=== PATIENT | male | born 1950 | race Caucasian/White ===

== ENCOUNTER → 2021-10-29 | Outpatient (CLI) | payer MEDICARE, SELFPAY ==
--- NOTE | 2021-10-29 | LES_PTH ---
PATIENT: MOHSEN OWEN LOC: [facility] U#:[id number] AGE/SX: 71/M ROOM: RE10/29/[address]: Dr. 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 AM:marcella 10/31/2021 MICROSCOPIC DESCRIPTION Slides are reviewed. GROSS DESCRIPTION Received in fixative is one container labeled with the patient's name and designated right upper eyelid. The specimen consists of multiple irregular fragments of light fleming tissue that in aggregate measure 1 x 0.5 x 0.2 cm. The specimen is totally submitted in one cassette. / AM:marcella 10/30/2021 TC:5 CPT: 06947
== END | disposition home or self-care (01) ==
LOC: LABSPEC 15:14
PROVIDERS: Visit Provider Ophthalmology
DX: L57.0 Actinic keratosis (principal)
CPT/HCPCS: 88305

== ENCOUNTER 2023-03-26 11:58 | Observation (INO) | payer MEDICARE, SELFPAY ==
[2023-03-26 12:00] VITALS: TEMP 37.1; BMI 32.7
--- NOTE | 2023-03-26 12:28 | EDS_ITS ---
HPI History of Present Illness HPI Narrative: Patient presents with right hip pain that began today. Patient fell out of bed and was unable to get up after the fall. Patient states he had the right total hip replacement 1 year ago. Patient states his pain is localized to his right hip. Patient states it is worse with movement. Patient describes it as aching. Patient denies any paresthesias or weakness. Patient denies any head injury or loss of consciousness. Patient denies any other injuries. Chief Complaint: Other, Pain/Inj Informant: patient Occured/Mechanism Mechanism/Context: Yes fall Onset/Context/Timing Onset: Today Context: Sudden Onset Timing: Continuous Quality of Pain: Aching Location: Right hip Worsened by: Movement Relieved by: Nothing Associated Symptoms Associated Symptoms: Negative for Parasthesia, Weakness or Loss of Funtion [facility] Medical History (Updated 03/26/23 @ 16:[address] Pradeep Pino DO) Colon cancer COPD (chronic obstructive pulmonary disease) Home Medications acyclovir 400 mg tablet 400 mg PO BID 03/26/23 [History Last Taken 03/25/23] budesonide-formoterol HFA 160 mcg-4.5 mcg/actuation aerosol inhaler (Symbicort) 1 inh inhalation Q12H 03/26/23 [History Last Taken 03/25/23] dexamethasone 4 mg tablet 40 mg PO .COMPLEX 03/26/23 [History Last Taken 03/22/23] lenalidomide 25 mg capsule 25 mg PO DAILY 03/26/23 [History Last Taken 03/25/23] ondansetron HCl 8 mg tablet 8 mg PO Q8H 03/26/23 [History Last Taken 03/25/23] Allergy/AdvReac Type Severity Reaction Status Date / Time No Known Allergies Allergy Verified 03/26/23 12:03 Surgical History (Updated 03/26/23 @ 13:[address] Pradeep Pino DO) History of colon resection History of total replacement of right hip Social History Smoking Status: Former smoker ROS ROS ED Constitutional Constitutional ED: Denies chills or fever(s) Eyes Eyes: Denies blurry vision or change in vision ENT ENT ED: Denies rhinorrhea or sore throat Cardiovascular Cardiovascular: Denies chest pain or palpitations Respiratory/Chest Respiratory/Chest: Denies cough or dyspnea Gastrointestinal Gastrointestinal: Denies nausea or vomiting Genitourinary Genitourinary ED: Denies dysuria or hematuria Musculoskeletal Musculoskeletal: Denies back pain or neck pain Integumentary Denies abscess or rash Neurologic Neurologic: Denies headache(s) or weakness Allergic/Immunologic Allergic/Immunologic ED: Denies mouth swelling or urticaria EXAM Physical Exam Const Vital Signs: 03/26/23 12:00 03/26/23 13:59 Temperature 98.7 F Temperature Source Oral Pulse Rate 88 Respiratory Rate 16 Blood Pressure 118/78 Blood Pressure Mean 91 Pulse Ox 98 Oxygen Delivery Method Room Air Positive well nourished and well developed General Appearance ED: well developed and NAD HEENT Reports moist mucous membranes Neck full ROM and supple Extremity Extremity Narrative: There is tenderness to palpation over the anterior and lateral aspects of the right hip. There is no bony crepitance or step-off. There is no obvious deformity noted. Range of motion was limited in all motions of the right hip secondary to pain. Sensation was intact to light touch in the lower extremities bilaterally. Pedal pulses were equal bilaterally. Strength is 5/5 bilaterally in the lower extremities. Neuro oriented x3, CN's II-XII intact bilaterally, moves all extremities and no sensory deficits noted Sensorium / Orientation: alert Motor Exam: strength 5/5 throughout Psych mental status grossly normal MDM MDM MDM Narrative Medical decision making narrative: Differential diagnosis includes hip dislocation, periprosthetic fracture, pelvic fracture, contusion, and closed head injury. X-rays of the right hip will be obtained to assess for fracture and dislocation. Radiography Diagnostic Testing: Clinical Impression(s) from Imaging Studies Hip/Pelvis X-Ray 03/26/23 13:04 IMPRESSION: Right hip arthroplasty, with no periprosthetic fracture. Electronically Signed: Vj Williamson MD at 13:27 EDT , Lower Extremity CT 03/26/23 14:21 IMPRESSION: Right hip arthroplasty, with no periprosthetic fracture. Nonspecific subchondral lucency/cyst formation at the anterior-superior aspect of the right acetabulum. Degenerative disc disease at L5-S1. Electronically Signed: Vj Williamson MD at 14:59 EDT , X-rays of the right hip were obtained. There are 3 views. On my independent interpretation, there is no acute fracture or dislocation noted. Radiologist also interpreted the x-rays and agrees. CT scan of the right hip was obtained. There is no periprosthetic fracture. There is no dislocation noted. This was interpreted by the radiologist and was also independently reviewed by myself. Treatment and Re-Evaluation Narrative: Patient was given injection of morphine here. Patient was advised of his findings. Patient was unable to ambulate after x-rays because of this, CT scan of the right hip was obtained. Patient was advised that the CT scan does not show any fracture. Patient was still unable to ambulate. Because of this, I will discuss the case with the hospitalist for admission and physical therapy. Patient understands and is agreeable with the plan. All questions were answered. Discharge Plan Triage Chief Complaint: Other, Pain/Inj ED Provider: Pradeep Pino Dx/Rx/DC Orders Clinical Impression: Inability to ambulate due to right hip, Acute pain of right hip Prescriptions: No Action acyclovir 400 mg tablet 400 mg PO BID budesonide-formoterol [Symbicort] 160-4.5 mcg/actuation HFA aerosol inhaler 1 inh INHALATION Q12H dexamethasone 4 mg tablet 40 mg PO .COMPLEX Rx Instructions: 40 mg orally ON DAY OF CHEMO; lenalidomide 25 mg capsule 25 mg PO DAILY ondansetron HCl 8 mg tablet 8 mg PO Q8H Primary Care Provider: GARRY MONTIEL Referrals: GARRY MONTIEL [Other] Disposition Disposition: Acute Care Hospital [facility]
[2023-03-26] MEDS: Morphine 4 MG/ML Syringe IM (12:53)
--- NOTE | 2023-03-26 13:04 | RAD_ITS ---
STUDY: X-RAY - PELVIS AND RIGHT HIP REASON FOR EXAM: Male, 72 years old. Injury/Pain. TECHNIQUE: 3 views of the pelvis and right hip. COMPARISON: None. FINDINGS: There is a non-specific bowel gas pattern. Normal visualized soft tissue structures. There are multiple calcified phleboliths. There are multiple fixation tacks in the lower abdominal wall. Normal bilateral iliac wings, sacroiliac joints and visualized sacrum. Normal bilateral superior and inferior pubic rami. Normal pubic symphysis. Normal bilateral ischial tuberosities. There is a right hip arthroplasty, with no periprosthetic fracture. RAD/HIP, UNI W/ Pelvis 2-3 Views IMPRESSION: Right hip arthroplasty, with no periprosthetic fracture. Electronically Signed: Vj Williamson MD at 13:27 EDT ,
[2023-03-26 13:59] VITALS: BP 118/78; PULSE 88; RESP 16; O2SAT 98
--- NOTE | 2023-03-26 14:21 | CT_ITS ---
STUDY: CT RIGHT HIP REASON FOR EXAM: Male, 72 years old. Right hip pain. CONTRAST: None. TECHNIQUE: Transaxial imaging of the right hip was performed with reformatted sagittal and coronal images. Individualized dose optimization techniques were used for this CT. COMPARISON: Right hip radiographs dated 03/26/2023. FINDINGS: HIP There is a right hip arthroplasty in place with single acetabular fixation screw. There is no lucency surrounding the acetabular screw. There is no periprosthetic fracture. There is nonspecific subchondral lucency/cyst formation at the anterior-superior aspect of the right acetabulum. VISUALIZED OSSEOUS PELVIS Normal right superior and inferior pubic rami. Normal pubic symphysis. Normal right ischial tuberosity. Normal visualized right iliac wing, sacroiliac joint, and sacral ala. There is degenerative disc disease at L5-S1. Normal visualized soft tissue structures of the pelvis. CT/Extremity Lower without Contra IMPRESSION: Right hip arthroplasty, with no periprosthetic fracture. Nonspecific subchondral lucency/cyst formation at the anterior-superior aspect of the right acetabulum. Degenerative disc disease at L5-S1. Electronically Signed: Vj Williamson MD at 14:59 EDT ,
--- NOTE | 2023-03-26 14:23 | ED.RN ---
Patient unable to move right leg or sit up. EMD aware
--- NOTE | 2023-03-26 14:26 | ED.RN ---
Patient refusing to have IV placed.
--- NOTE | 2023-03-26 16:38 | ED.RN ---
THIS RN ATTEMPTED TO AMBULATE PATIENT SO THAT HE COULD GO HOME. PT. WAS UNSUCCESSFULL AND NOT EVEN ABLE TO SIT HIMSELF UP IN BED WITH ASSISTANCE D/T WEAKNESS.
[2023-03-26 16:45] LABS: Absolute Lymphocyte Count 0.48 X10^3/uL (0.83-4.51); Absolute Neutrophil Count 3.3 X10^3/uL (2.0-7.7); Basophil# 0.01 X10^3/uL; Basophil% 0.2 % (0-1); Hematocrit 36.8 % (40-54); Hemoglobin 12.3 g/dL (13.0-16.5); Lymphocyte # 0.48 X10^3/ul (0.83-4.51); Lymphocyte % 11.2 % (19-41); Mean Corp Hgb Conc 33.4 g/dL (32-36); Mean Corpuscular Hgb 33.8 pg (27.0-32.0); Mean Corpuscular Volume 101.1 fL (80-94); Monocyte# 0.44 X10^3/uL; Monocyte% 10.2 % (0-10); NRBC Flagged by Analyzer 0 % (0-5); Neutrophil # 3.34 X10^3/uL (2.7-7.7); Neutrophil % 77.7 % (47-70); POSITIVE COUNT YES; POSITIVE DIFFERENTIAL YES; Platelet Count 78 K/mm3 (150-450); RBC Distribution Width SD 51.7 fl (35.1-43.9); Red Blood Count 3.64 M/mm3 (4.6-6.2); White Blood Count 4.3 K/mm3 (4.4-11.0)
[2023-03-26 16:49] LABS: Differential Indicated SCAN CRITERIA MET
[2023-03-26 17:00] LABS: Anion Gap 2 (5-15); BUN 19 mg/dL (7-18); BUN/Creat Ratio 21.2 RATIO (10-20); Calcium,Total 7.9 mg/dL (8.5-10.1); Chloride 107 mmol/L (98-107); EST Glomerular Filtration Rate 88 mL/min (>60); Est Glom Filt Rate - Afr Amer 107 mL/min (>60); Estimated Creatinine Clearance 68.34 ml/min; Glucose 84 mg/dL (74-106); Potassium 3.8 mmol/L (3.5-5.1); Sodium Level 136 mmol/L (136-145)
[2023-03-26 17:26] LABS: Differential Comment SCANNED
[2023-03-26 17:46] LABS: CPK Total, Creatine Kinase 2541 U/L (39-308)
--- NOTE | 2023-03-26 18:07 | PCM.HP.STD ---
HPI - General General Date of Admission: 03/26/23 Date of Service: 03/26/23 Chief Complaint: Right hip pain HPI Narrative MOHSEN OWEN, is a 72 M who presented to [facility] on 03/26/2023 complaining of right hip pain and inability ambulate. The patient was found on the ground today after lying on the ground for what is suspected to be about 9 hours. Patient was unclear how he got there but complained of right hip pain so he was brought to the emergency department. He was unable to ambulate. He was recently diagnosed with multiple myeloma and had his first chemotherapy with Dr. Roberts recently. He denies any other complaints and indicates his pain is predominantly in the anterior portion of his right leg and wraps around laterally. Pain is not reproducible with palpation. His daughter at the bedside also reports that his response time is a little bit slowed compared to baseline. He had morphine so not clear if it is related to this or if something else organic is going on. Patient does not remember how he got onto the ground. Vital signs on presentation showed temperature of 98.7, heart rate 88, blood pressure 118/78, respiratory was 16 oxygen saturations were 98% room air. His CBC shows a pancytopenia which is anticipated based on his myeloma diagnosis and chemotherapy. His chemistry panel is unremarkable other than a slightly elevated BUN at 19. His serum creatinine 0.9. His CK is 2541. Imaging of the hip was performed and he has a noted right hip arthroplasty with no periprosthetic fracture on plain films and a CT was done given the amount of pain he was having with weightbearing and this demonstrated right hip arthroplasty with no periprosthetic fracture nonspecific subchondral lucency and cyst formation along the anterior aspect of the right acetabulum as well as degenerative disc disease at L5-S1. [facility], [facility] Medical History (Updated 03/26/23 @ 18:[address] Sue Williamson DO) Colon cancer COPD (chronic obstructive pulmonary disease) History of tobacco abuse Multiple myeloma Home Medications acyclovir 400 mg tablet 400 mg PO BID 03/26/23 [History Last Taken 03/25/23] budesonide-formoterol HFA 160 mcg-4.5 mcg/actuation aerosol inhaler (Symbicort) 1 inh inhalation Q12H 03/26/23 [History Last Taken 03/25/23] dexamethasone 4 mg tablet 40 mg PO .COMPLEX 03/26/23 [History Last Taken 03/22/23] lenalidomide 25 mg capsule 25 mg PO DAILY 03/26/23 [History Last Taken 03/25/23] ondansetron HCl 8 mg tablet 8 mg PO Q8H 03/26/23 [History Last Taken 03/25/23] Allergy/AdvReac Type Severity Reaction Status Date / Time No Known Allergies Allergy Verified 03/26/23 12:03 other (Patient unsure) Surgical History History of colon resection History of total replacement of right hip Social History (Updated 03/26/23 @ 18:[address] Sue Williamson DO) Smoking Status: Former smoker alcohol intake: current alcohol intake frequency: holidays/special occasions only substance use type: does not use ROS Constitutional Constitutional: Denies anorexia, change in weight, chills, fatigue, fever(s), malaise, night sweats, weakness or other Eyes Eyes: Denies blurry vision, change in eye color, change in vision, discharge from eye(s), double vision, erythema, eye pain, loss of vision or other ENT HEENT: Denies abnormal hearing, dysphagia, ear pain, epistaxis, headache(s), hearing loss, nasal congestion, nasal discharge, post nasal drip, sinus pressure, sore throat or other Cardiovascular Cardiovascular: Denies chest pain, claudication, dyspnea on exertion, edema, lightheadedness, orthopnea, palpitations, paroxysmal nocturnal dyspnea, rapid heart rate, syncope or other Respiratory/Chest Respiratory/Chest: Denies cough, dyspnea, excessive phlegm production, hemoptysis, productive cough, shortness of breath at rest, shortness of breath with exertion, wheezing or other Gastrointestinal Gastrointestinal: Denies abdominal pain, coffee ground emesis, constipation, diarrhea, dyspepsia, hematemesis, hematochezia, loose stools, melena, nausea, vomiting or other Genitourinary Genitourinary: Denies burning urination, difficulty urinating, dysuria, hematuria, nocturia, urinary frequency, urinary hesitancy, urinary incontinence, urinary urgency or other Musculoskeletal Musculoskeletal: Reports joint pain and other Details: Inability to bear weight right lower extremity ; Denies arthralgias, back pain, joint stiffness, joint swelling, myalgias or neck pain Neurologic Neurologic: Reports abnormal gait; Denies abnormal speech, confusion, disequilibrium, dizziness, focal weakness, headache(s), numbness, paresthesias, seizure-like activity, seizures, syncope, tingling, tremor(s) or other Psychiatric Psychiatric: Denies anxiety, depression, homicidal ideation, suicidal ideation or other Endocrine Endocrinology: Denies change in body appearance, cold intolerance, excessive sweating, heat intolerance, polydipsia, polyuria or other Hematologic/Lymphatic Hematologic/Lymphatic: Denies anemia, easy bleeding, easy bruising, lymphadenopathy or other Allergic/Immunologic Allergic/Immunologic: Denies rhinitis, hives, eczemia, asthma or other Vital Signs Vital Signs Vital Signs: 03/26/23 12:00 03/26/23 13:59 Temperature 98.7 F Temperature Source Oral Pulse Rate 88 Respiratory Rate 16 Blood Pressure 118/78 Blood Pressure Mean 91 Pulse Ox 98 Oxygen Delivery Method Room Air Weight Weight: 94.801 kg Body Mass Index (BMI) 32.7 Results Lab / Micro Data 03/26/23 16:34 03/26/23 16:34 Labs: Laboratory Results - last 24 hr 03/26/23 16:34: WBC 4.3 L, RBC 3.64 L, Hgb 12.3 L, Hct 36.8 L, MCV 101.1 H, MCH 33.8 H, MCHC 33.4, RDW Std Deviation 51.7 H, RDW Coeff of Chetan 14.0, Plt Count 78 L, MPV 12.0, Immature Gran % (Auto) 0.700, Neut % (Auto) 77.7 H, Lymph % (Auto) 11.2 L, [place] % (Auto) 10.2 H, Eos % (Auto) 0.0, Baso % (Auto) 0.2, Absolute Neuts (auto) 3.3, Absolute Lymphs (auto) 0.48 L, Nucleated RBC % 0, Differential Comment SCANNED, Diff Path Review September, Sodium 136, Potassium 3.8, Chloride 107, Carbon Dioxide 27.0, Anion Gap 2 L, BUN 19 H, Creatinine 0.90, Estim Creat Clear Calc 68.34, Est GFR (MDRD) Af Amer 107, Est GFR (MDRD) Non-Af 88, BUN/Creatinine Ratio 21.2 H, Glucose 84, Calcium 7.9 L, Total Creatine Kinase 2541 H Radiology Impression Hip/Pelvis X-Ray 03/26/23 13:04 IMPRESSION: Right hip arthroplasty, with no periprosthetic fracture. Electronically Signed: Vj Williamson MD at 13:27 EDT , Lower Extremity CT 03/26/23 14:21 IMPRESSION: Right hip arthroplasty, with no periprosthetic fracture. Nonspecific subchondral lucency/cyst formation at the anterior-superior aspect of the right acetabulum. Degenerative disc disease at L5-S1. Electronically Signed: Vj Williamson MD at 14:59 EDT , Assessment & Plan Assessment/Plan (1) Acute pain of right hip: (2) Inability to ambulate due to right hip: (3) Rhabdomyolysis: (4) Confusion: PLAN: Plan Acute right hip pain with inability ambulate -Imaging is unremarkable -If pain persists would recommend repeat imaging of CT pelvis and right hip region at 24 to 48 hours to rule out occult fracture -PT/OT with weightbearing as tolerated -Scheduled Tylenol -As needed oxycodone -We will place on bowel regimen to avoid constipation associate with narcotics Mild rhabdomyolysis -CK on admission was about 2500 -We will hydrate with IV fluids with LR at about 100 cc/h with a repeat CK in a.m. -No current renal dysfunction Mild confusion -Patient is alert and oriented x3 however response times are slow -Family states this is atypical for him -Check CT of the brain -May be related to medications for pain given in the emergency department Pancytopenia -Related to chemotherapy and underlying disease process -Monitor counts COPD -Continue home inhalers -As needed albuterol Multiple myeloma -Continue home medications -Continue outpatient follow-up -sees Dr. Roberts Debility -PT/OT consultation History of tobacco abuse -Remote Obesity -BMI 32.7 -Complicates treatment, prognosis, outcomes -Recommend weight loss DVT prophylaxis -Subcu Lovenox CODE STATUS -Full code as verified on admission Charges/Coding Visit Charges Inpatient E&M: 65199 Init Hosp L2
--- NOTE | 2023-03-26 18:09 | CT_ITS ---
STUDY: CT BRAIN WITHOUT CONTRAST REASON FOR EXAM: Male, 72 years old. confusion RADIATION DOSAGE (If Supplied By Facility): CTDIvol = ( 44.99 ) mGy, DLP = ( 846.73 ) mGycm TECHNIQUE: Transaxial CT imaging of the brain was performed without administration of intravenous contrast material. Individualized dose optimization techniques were used for this CT. COMPARISON: No relevant priors. FINDINGS: Normal soft tissue structures. Normal calvarium. There is severe cerebral atrophy with widening of the extra-axial spaces and ventricular dilatation. There are areas of decreased attenuation within the white matter tracts of the supratentorial brain, consistent with microvascular disease changes. Normal basal ganglia and thalami. Normal brainstem. Normal cerebellum. There is no intracranial hemorrhage. There are no findings of an acute ischemic infarction. Normal visualized paranasal sinuses. CT/Brain/Head without Contrast IMPRESSION: Chronic involutional changes of the brain. Electronically Signed: Brien Harley MD at 18:50 EDT ,
[2023-03-26 18:36] VITALS: BP 118/78; PULSE 88; RESP 16; TEMP 37.1; O2SAT 98
[2023-03-26 18:54] VITALS: BMI 32.8
[2023-03-26 18:58] VITALS: BP 121/68; PULSE 90; RESP 18; TEMP 37.9; O2SAT 96
[2023-03-26] MEDS: Lactated Ringers 1,000 ML 100 ML IV (20:21)
[2023-03-26] MEDS: Acetaminophen 500 MG Tablet 1000 MG PO (20:23)
[2023-03-26] MEDS: Albuterol 2.5 MG/3 ML VIAL.NEB. INHALATION (20:40)
[2023-03-26 20:41] VITALS: PULSE 87; RESP 16
[2023-03-26] MEDS: Budesonide Respules 0.5 MG/2 ML AMPUL.NEB. INHALATION (20:41)
[2023-03-26] MEDS: Acyclovir 200 MG Capsule 400 MG PO (22:41)
[2023-03-26 22:43] VITALS: BP 132/67; PULSE 90; RESP 18; TEMP 36.8; O2SAT 98
[2023-03-27 03:45] VITALS: BP 118/67; PULSE 83; RESP 18; TEMP 36.6; O2SAT 98
[2023-03-27 04:38] VITALS: BMI 11.3
[2023-03-27] MEDS: Lactated Ringers 1,000 ML 100 ML IV (05:23)
[2023-03-27] MEDS: Acetaminophen 500 MG Tablet 1000 MG PO (05:23)
--- NOTE | 2023-03-27 07:40 | PN.HOSP_ITS ---
Reason for Visit Reason for Visit: Diagnoses Pain in right hip (03/26/23) Rhabdomyolysis (03/26/23) Difficulty in walking, not elsewhere classified (03/26/23) Disorientation, unspecified (03/26/23) Subjective Subjective States that he did not fall, but rather rolled out of bed. Evaded questioning about length of time he was on the floor. 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 Objective Data Objective Data Vital Signs: Vital Signs Temp Pulse Resp BP Pulse Ox O2 Del Method O2 Flow Rate 36.6 C 83 18 118/67 98 Nasal Cannula 2 03/27/23 03:45 03/27/23 03:45 03/27/23 03:45 03/27/23 03:45 03/27/23 03:45 03/27/23 03:45 03/27/23 03:45 Oxygen Flow Rate (L/min) 2 Oxygen Delivery Method Nasal Cannula Weight: 32.8 kg Body Mass Index (BMI) 11.3 Intake & Output: Intake and Output for Last 24 Hours 03/25/23 03/26/23 03/27/23 23:59 23:59 23:59 Intake Total 903.33 / 903.33 Output Total 600 / 600 Balance 303.33 / 303.33 Lab / Micro Data 03/27/23 08:08 03/27/23 08:08 Labs: Laboratory Results - last 24 hr 03/26/23 16:34: WBC 4.3 L, RBC 3.64 L, Hgb 12.3 L, Hct 36.8 L, MCV 101.1 H, MCH 33.8 H, MCHC 33.4, RDW Std Deviation 51.7 H, RDW Coeff of Chetan 14.0, Plt Count 78 L, MPV 12.0, Immature Gran % (Auto) 0.700, Neut % (Auto) 77.7 H, Lymph % (Auto) 11.2 L, [place] % (Auto) 10.2 H, Eos % (Auto) 0.0, Baso % (Auto) 0.2, Absolute Neuts (auto) 3.3, Absolute Lymphs (auto) 0.48 L, Nucleated RBC % 0, Differential Comment SCANNED, Diff Path Review September, Sodium 136, Potassium 3.8, Chloride 107, Carbon Dioxide 27.0, Anion Gap 2 L, BUN 19 H, Creatinine 0.90, Estim Creat Clear Calc 68.34, Est GFR (MDRD) Af Amer 107, Est GFR (MDRD) Non-Af 88, BUN/Creatinine Ratio 21.2 H, Glucose 84, Calcium 7.9 L, Total Creatine Kinase 2541 H Radiography Diagnostic Testing: Radiology Impression Hip/Pelvis X-Ray 03/26/23 13:04 IMPRESSION: Right hip arthroplasty, with no periprosthetic fracture. Electronically Signed: Vj Williamson MD at 13:27 EDT , Lower Extremity CT 03/26/23 14:21 IMPRESSION: Right hip arthroplasty, with no periprosthetic fracture. Nonspecific subchondral lucency/cyst formation at the anterior-superior aspect of the right acetabulum. Degenerative disc disease at L5-S1. Electronically Signed: Vj Williamson MD at 14:59 EDT , Brain CT 03/26/23 18:09 IMPRESSION: Chronic involutional changes of the brain. Electronically Signed: Brien Harley MD at 18:50 EDT , Physical Exam Const alert, oriented x3 and no apparent distress HEENT head/scalp atraumatic and moist oral mucous membranes Resp normal respiratory effort, no retractions, no use of accessory muscles and clear to auscultation bilaterally Cardio regular rate, regular rhythm, S1 normal heart sound and S2 normal heart sound GI normal to inspection, nondistended, normoactive bowel sounds, soft to palpation, non-tender and non-distended Neuro Sensorium / Orientation: awake and alert Assessment & Plan Assessment/Plan (1) Acute pain of right hip: PLAN: CT showed right hip arthroplasty w no periprosthetic fracture. Found down after 9 hours. (2) Inability to ambulate due to right hip: PLAN: PT OT Pt insisting on going home. He expresses understanding of risk of going home, including further falls. Myself and nursing separately discouraged him going ho me given his debility. Encourage oupt physical therapy. (3) Rhabdomyolysis: PLAN: 2/2 to being down for 9 hours. CPK 2541 on admission. Trending down to 1130. (4) Confusion: PLAN: Resolved. Reportedly pt is normally A+O x3, but noted to be slow in response at baseline Despite profound atrophy on CT, pt is A+Ox3 and understands risks of going home. Recommend follow up with neurology as outpt. PLAN: Plan Chronic conditions: * Pancytopenia-Related to chemotherapy and underlying disease process-Monitor counts * COPD-Continue home inhalers-As needed albuterol * Multiple myeloma-Continue home medications-Continue outpatient [id number] Dr. Roberts * Obesity-BMI 32.7-Complicates treatment, prognosis, outcomes DVT prophylaxis-Subcu Lovenox CODE STATUS-Full code as verified on admission
[2023-03-27 09:03] LABS: Basophil# 0.01 X10^3/uL; Basophil% 0.4 % (0-1); Eosinophil# 0.02 X10^3/uL; Eosinophils% 0.7 % (0-5); Hematocrit 33.1 % (40-54); Hemoglobin 11.2 g/dL (13.0-16.5); Mean Corp Hgb Conc 33.8 g/dL (32-36); Mean Corpuscular Hgb 34.3 pg (27.0-32.0); Mean Corpuscular Volume 101.2 fL (80-94); Mean Platelet Vol. 12.4 fl (6.2-12.0); Monocyte# 0.21 X10^3/uL; Monocyte% 7.9 % (0-10); NRBC Flagged by Analyzer 0 % (0-5); Neutrophil # 2.02 X10^3/uL (2.7-7.7); Neutrophil % 75.6 % (47-70); POSITIVE COUNT YES; POSITIVE DIFFERENTIAL YES; Platelet Count 61 K/mm3 (150-450); RBC Distribution Width CV 13.8 % (11.6-14.6); Red Blood Count 3.27 M/mm3 (4.6-6.2); White Blood Count 2.7 K/mm3 (4.4-11.0)
[2023-03-27 09:24] LABS: ALB/GLOB Ratio 0.9 RATIO (0.9-2.4); AST(SGOT) 78 U/L (15-37); Alanine Aminotransfer ALT/SGPT 33 U/L (16-61); Albumin, Serum 2.3 g/dL (3.2-5.0); Alkaline Phosphatase 55 U/L (45-117); Anion Gap 5 (5-15); BUN 21 mg/dL (7-18); BUN/Creat Ratio 23.8 RATIO (10-20); CPK Total, Creatine Kinase 1130 U/L (39-308); Calcium,Total 7.4 mg/dL (8.5-10.1); Chloride 110 mmol/L (98-107); Creatinine, Serum 0.88 mg/dL (0.70-1.30); EST Glomerular Filtration Rate 90 mL/min (>60); Est Glom Filt Rate - Afr Amer 109 mL/min (>60); Estimated Creatinine Clearance 34.68 ml/min; Globulin 2.5 g/dL (2.2-4.2); Glucose 92 mg/dL (74-106); Magnesium 2.1 mg/dL (1.6-2.6); Phosphorus 3.8 mg/dL (2.5-4.9); Potassium 3.6 mmol/L (3.5-5.1); Protein, Total 4.8 g/dL (6.4-8.2); Sodium Level 141 mmol/L (136-145); Thyroid Stim Hormone (TSH) 2.05 uIU/mL (0.358-3.74)
[2023-03-27 09:50] VITALS: BP 109/61; PULSE 84; RESP 18; TEMP 36.6; O2SAT 94
[2023-03-27 09:53] LABS: Differential Indicated SCAN CRITERIA MET
[2023-03-27] MEDS: Acyclovir 200 MG Capsule 400 MG PO (09:53)
[2023-03-27 10:21] LABS: Differential Comment SCANNED; Platelet Estimate MKD DEC (ADEQ)
--- NOTE | 2023-03-27 10:28 | DS.PCM_ITS ---
Providers Date of Admission: 03/26/23 Primary Care Physician: GARRY MONTIEL Reason For Visit: INTRACTABLE HIP PAIN Diagnosis Discharge Diagnosis (1) Acute pain of right hip: Status: Acute Code(s): M25.551 - Pain in right hip Plan: CT showed right hip arthroplasty w no periprosthetic fracture. Found down after 9 hours. (2) Inability to ambulate due to right hip: Status: Acute Code(s): R26.2 - Difficulty in walking, not elsewhere classified Plan: PT OT Pt insisting on going home. He expresses understanding of risk of going home, including further falls. Myself and nursing separately discouraged him going home given his debility. Encourage oupt physical therapy. (3) Rhabdomyolysis: Status: Acute Code(s): M62.82 - Rhabdomyolysis Plan: 2/ to being down for 9 hours. CPK 2541 on admission. Trending down to 1130. (4) Confusion: Status: Acute Code(s): R41.0 - Disorientation, unspecified Plan: Resolved. Reportedly pt is normally A+O x3, but noted to be slow in response at baseline Despite profound atrophy on CT, pt is A+Ox3 and understands risks of going home. Recommend follow up with neurology as outpt. Plan Chronic conditions: * Pancytopenia-Related to chemotherapy and underlying disease process-Monitor counts * COPD-Continue home inhalers-As needed albuterol * Multiple myeloma-Continue home medications-Continue outpatient [id number] Dr. Roberts * Obesity-BMI 32.7-Complicates treatment, prognosis, outcomes DVT prophylaxis-Subcu Lovenox CODE STATUS-Full code as verified on admission Medications at Discharge Home Medications acyclovir 400 mg tablet 400 mg PO BID 03/26/23 budesonide-formoterol HFA 160 mcg-4.5 mcg/actuation aerosol inhaler (Symbicort) 1 inh inhalation Q12H 03/26/23 dexamethasone 4 mg tablet 40 mg PO .COMPLEX 03/26/23 lenalidomide 25 mg capsule 25 mg PO DAILY 03/26/23 ondansetron HCl 8 mg tablet 8 mg PO Q8H 03/26/23 Hospital Course Operations None Procedures None Summary of Care Provided Minutes Spent on Discharge: 35 Hospital Course: Patient was found down for upwards of 9 hours at home. Patient was evaluated noted to have some mild rhabdomyolysis with a CPK of 2541. Was complaining of some hip pain but CAT scan was negative. Patient apparently had some transient confusion and CAT scan showed marked atrophy but no other acute process. Today, the patient was evaluated and he is alert and oriented x3 but he denies the need for senior care facility insist on going home. He was expressed to himself as well as nursing separately that he should go somewhere for some additional rehab as he was unable to get himself off the floor after several hours. He denies any needs for that. Is going to him about the risks and he is excepting. He does seem rather dismissive of the input from the medical staff including the physician as well as nursing. Patient insist on going home. His rhabdomyolysis is improving that is likely due to the profound length of time that he was on the floor. He does have marked atrophy as mentioned above but he is currently alert and oriented. Would recommend that he follow-up with neurology for further evaluation of this marked atrophy and evaluation for possible dementia or mild cognitive impairment. Weight / BMI Weight Weight: 32.8 kg Body Mass Index (BMI) 11.3 ABG / Lab / Microbiology Data 03/27/23 08:08 03/27/23 08:08 Laboratory: Laboratory Results - last 24 hr 03/26/23 16:34: WBC 4.3 L, RBC 3.64 L, Hgb 12.3 L, Hct 36.8 L, MCV 101.1 H, MCH 33.8 H, MCHC 33.4, RDW Std Deviation 51.7 H, RDW Coeff of Chetan 14.0, Plt Count 78 L, MPV 12.0, Immature Gran % (Auto) 0.700, Neut % (Auto) 77.7 H, Lymph % (Auto) 11.2 L, [place] % (Auto) 10.2 H, Eos % (Auto) 0.0, Baso % (Auto) 0.2, Absolute Neuts (auto) 3.3, Absolute Lymphs (auto) 0.48 L, Nucleated RBC % 0, Differential Comment SCANNED, Diff Path Review September, Sodium 136, Potassium 3.8, Chloride 107, Carbon Dioxide 27.0, Anion Gap 2 L, BUN 19 H, Creatinine 0.90, Estim Creat Clear Calc 68.34, Est GFR (MDRD) Af Amer 107, Est GFR (MDRD) Non-Af 88, BUN/Creatinine Ratio 21.2 H, Glucose 84, Calcium 7.9 L, Total Creatine Kinase 2541 H 03/27/23 08:08: WBC 2.7 L, RBC 3.27 L, Hgb 11.2 L, Hct 33.1 L, MCV 101.2 H, MCH 34.3 H, MCHC 33.8, RDW Std Deviation 51.0 H, RDW Coeff of Chetan 13.8, Plt Count 61 L, MPV 12.4 H, Immature Gran % (Auto) 0.400, Neut % (Auto) 75.6 H, Lymph % (Auto) 15.0 L, [place] % (Auto) 7.9, Eos % (Auto) 0.7, Baso % (Auto) 0.4, Absolute Neuts (auto) 2.0, Absolute Lymphs (auto) 0.40 L, Nucleated RBC % 0, Differential Comment SCANNED, Diff Path Review September, Platelet Estimate MKD DEC, Sodium 141, Potassium 3.6, Chloride 110 H, Carbon Dioxide 26.0, Anion Gap 5, BUN 21 H, Creatinine 0.88, Estim Creat Clear Calc 34.68, Est GFR (MDRD) Af Amer 109, Est GFR (MDRD) Non-Af 90, BUN/Creatinine Ratio 23.8 H, Glucose 92, Calcium 7.4 L, Phosphorus 3.8, Magnesium 2.1, Total Bilirubin 0.50, AST 78 H, ALT 33, Alkaline Phosphatase 55, Total Creatine Kinase 1130 H, Total Protein 4.8 L, Albumin 2.3 L , Globulin 2.5, Albumin/Globulin Ratio 0.9, TSH 2.05 Radiography Diagnostic Testing: Radiology Impression Hip/Pelvis X-Ray 03/26/23 13:04 IMPRESSION: Right hip arthroplasty, with no periprosthetic fracture. Electronically Signed: Vj Williamson MD at 13:27 EDT , Lower Extremity CT 03/26/23 14:21 IMPRESSION: Right hip arthroplasty, with no periprosthetic fracture. Nonspecific subchondral lucency/cyst formation at the anterior-superior aspect of the right acetabulum. Degenerative disc disease at L5-S1. Electronically Signed: Vj Williamson MD at 14:59 EDT , Brain CT 03/26/23 18:09 IMPRESSION: Chronic involutional changes of the brain. Electronically Signed: Brien Harley MD at 18:50 EDT , D/C Instructions Discharge Diet: No restrictions Meaningful Use Info Meaningful Use Diagnoses (Choose all that apply): None applicable Discharge Plan Admission Admit Date/Time: 03/26/23 18:16 Primary Reason for Your Visit: Found down Attending Provider: Pradeep Xavier Primary Care Provider: GARRY MONTIEL Consulting Providers: Sue Williamson Instructions Additional Instructions / Restrictions: You are found down on the floor after several hours. You had some muscle breakdown as evidenced on some your lab work but that is improved with IV fluids. CAT scan did not show any fracture in your hip. You are weak and is recommended to be evaluated to see about going somewhere for further rehab but you would rather go home. I would recommend that you do follow-up with physical therapy to help increase her strength. I do recommend that you follow-up with neurology as well as you do have very marked atrophy on your CAT scan of your br ain. I am not sure why that is but there is no evidence of any stroke at this time. If you do have further falls or unable to get yourself up., If you are able, contact 911 to come back into the emergency room. Discharge Orders/Prescriptions Prescriptions: Continued acyclovir 400 mg tablet 400 mg PO BID budesonide-formoterol [Symbicort] 160-4.5 mcg/actuation HFA aerosol inhaler 1 inh INHALATION Q12H dexamethasone 4 mg tablet 40 mg PO .COMPLEX Rx Instructions: 40 mg orally ON DAY OF CHEMO; lenalidomide 25 mg capsule 25 mg PO DAILY ondansetron HCl 8 mg tablet 8 mg PO Q8H Other Ambulatory Orders: Physical Therapy Evaluation (Routine) Location: None Selected Ordered By: Dr. Pradeep Xavier Referrals / Follow Up: GARRY MONTIEL [Other] GARRY MONTIEL [Other] - Within 1 Week Disposition Disposition (needs filled in before D/C Order can be placed): Home, Self Care Charges/Coding Visit Charges Inpatient E&M: 59305 Disch Hosp >30min
--- NOTE | 2023-03-27 12:33 | CASEMGMT ---
Addendum entered by Edwina Dangelo 03/27/23 13:02: Social Work SW did ask pt if he goes to the [facility], as pt had mentioned is on a limited budget. Pt states no, he does not want to go there due to who is in office, and does not want to have to wait. HALIE Salazar Original Note: Social Work SW met w/pt in room to discuss prior level of function and discharge plan. PCP: Brenton Montgomery Specialists: Dr. Roberts, oncology. Pt informed SW this is the second time he is going through cancer treatment. Insurance: [employer] Medicare Pharmacy: [facility] [place]: Pt has two sons, Rickie and Pradeep. Pt also has significant other Marcella Escalante LW/POA: Pt states son Rickie is POA, SW asked pt to bring in should he back in the hospital. Living arrangements/Prior level of function: Pt lives home in a one floor apartment. Pt lives alone, independent with ADLs. Pt drives, cleans, organizes his own medication, completes all ADLs. He cooks, or Marcella will bring over food for pt occasionally. DME: Pt has a cane and walker. We talked about a life alert button, he states his girlfriend is looking into this with his insurance. [facility]: Pt had home health care after hip surgery, but states did not have it very long SNF: Pt has not been to SNF Plan: Home. Therapy came in to see pt while SW in room, pt politely declined, stating he can manage and knows his limits. 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 SW did give pt a prescription for outpt PT from the physician, along with information for [facility]. Pt did tell SW he prefers [facility], SW did pt know that he can take the script to [facility] as well if he would prefer to get therapy there. Pt states understanding. Pt will return home at discharge, no further needs anticipated at this time. HALIE Salazar
[2023-03-30 10:12] LABS: Pathologist Review Reviewed
[2023-03-30 10:14] LABS: Pathologist Review Reviewed
== END 2023-03-27 16:40 | disposition home or self-care (01) ==
LOC: ED 16:36 → MS3 18:14
PROVIDERS: Admitting Provider Internal Medicine; Emergency Provider Emergency Medicine
DX: M25.551 Pain in right hip (principal); C90.00 Multiple myeloma not having achieved remission; D61.810 Antineoplastic chemotherapy induced pancytopenia; J44.9 Chronic obstructive pulmonary disease, unspecified; M62.82 Rhabdomyolysis; R26.2 Difficulty in walking, not elsewhere classified; R53.81 Other malaise; Z79.51 Long term (current) use of inhaled steroids; Z87.891 Personal history of nicotine dependence; R41.0 Disorientation, unspecified; M51.37 Other intervertebral disc degeneration, lumbosacral region; Z96.641 Presence of right artificial hip joint; Z79.899 Other long term (current) drug therapy; E66.9 Obesity, unspecified; Z68.32 Body mass index [BMI] 32.0-32.9, adult
CPT/HCPCS: 36415; 70450; 73502; 73700; 80048; 80053; 82550; 83735; 84100; 84443; 85025; 94640; 96360; 96361; 96372; 99221; 99285; J7120; G0378

== ENCOUNTER → 2024-03-28 | Outpatient (CLI) | payer MEDICARE, SELFPAY | END | disposition home or self-care (01) | LOC: LABSPEC 12:50 | PROVIDERS: Referring Provider Internal Medicine Hematology & Oncology; Visit Provider Internal Medicine Hematology & Oncology | DX: C90.00 Multiple myeloma not having achieved remission (principal) | CPT/HCPCS: 86850; 86900; 86901 ==

== ENCOUNTER 2024-06-09 19:17 | Inpatient (IN) | payer MEDICARE, SELFPAY ==
[2024-06-09] VITALS (15 sets, daily range): BP systolic 104–124; BP diastolic 52–81; PULSE 100–111; RESP 20–26; TEMP 34.8–36.9; O2SAT 91–98; BMI 36.4; BMI 34.9
--- NOTE | 2024-06-09 19:27 | EKG12_ITS ---
Test Reason : DYSRHYTHMIA Blood Pressure : */* mmHG Vent. Rate : 108 BPM Atrial Rate : 108 BPM P-R Int : 160 ms QRS Dur : 118 ms QT Int : 378 ms P-R-T Axes : 74 91 62 degrees QTcB Int : 506 ms Sinus tachycardia Right bundle branch block Abnormal ECG Confirmed by Alli Madison ([id number]), manager editorial MARBELLA RDZ ([id number]) on 06/12/2024 10:27:40 AM Referred By: Confirmed By: Alli Madison
--- NOTE | 2024-06-09 19:30 | EDS_ITS ---
HPI <SAHRA Gama - Last Filed: 06/09/24 21:02> History of Present Illness Chief Complaint: Weakness Narrative Narrative: 73-year-old male with past medical history of COPD, multiple myeloma on weekly chemotherapy shots presents with weakness for about a week. He states he has had a cough and tested positive for COVID-19. He states he has been too weak to get out of bed for multiple days. He cannot really give me a good timeline. His friend apparently called EMS and he was brought in for evaluation. He lives alone and states prior to this illness he is able to walk. He denies fall or injuries and again he was found in bed. He denies chest pain or shortness of breath. PFSH <SAHRA Gama - Last Filed: 06/09/24 21:02> PFS Medical History (Updated 06/09/24 @ 20:29 by Burke River MD) Rheumatoid arthritis Former smoker History of tobacco abuse Multiple myeloma Colon cancer COPD (chronic obstructive pulmonary disease) Home Medications ?Medication ?Instructions ?Recorded ?Last Taken ?Type acyclovir 400 mg tablet 400 mg PO BID 03/26/23 03/25/23 History budesonide-formoterol HFA 160 1 inh inhalation Q12H 03/26/23 03/25/23 History mcg-4.5 mcg/actuation aerosol inhaler (Symbicort) dexamethasone 4 mg tablet 40 mg PO .COMPLEX 03/26/23 03/22/23 History ondansetron HCl 8 mg tablet 8 mg PO Q8H 03/26/23 03/25/23 History lenalidomide 15 mg capsule 15 mg PO DAILY 06/09/24 Unknown History Allergy/AdvReac Type Severity Reaction Status Date / Time No Known Allergies Allergy Verified 06/09/24 19:18 Surgical History History of colon resection History of total replacement of right hip Social History (Updated 03/26/23 @ 18:[address] Sue Williamson DO) Smoking Status: Former smoker alcohol intake: current alcohol intake frequency: holidays/special occasions only substance use type: does not use ROS <SAHRA Gama - Last Filed: 06/09/24 21:02> ROS ED ROS Narrative Constitutional: Positive for chills, malaise. CVS: Negative for chest pain. Respiratory: Positive for cough. GI: Negative for abdominal pain, vomiting, diarrhea. EXAM <SAHRA Gama - Last Filed: 06/09/24 21:02> Physical Exam Narrative Exam Narrative: CONST: Patient appears disheveled lying on bed. He is covered in urine and stool on his legs. EYES: Normal inspection. ENT: Normal inspection, dry mucous membranes. NECK: Normal inspection. RESP: No respiratory distress, anterior laterally clear to auscultation. CVS: Regular rate and rhythm, no murmur, no gallop. ABD: Soft and nontender, no guarding or rebound, nondistended. SKIN: Red/purple skin over his lower and upper thighs from lying down and moisture. No open wounds. EXTREMITIES: Normal appearance, bilateral +1 ankle edema. NEURO: Alert and answering questions appropriately. PSYCH: Normal affect. Const Vital Signs: 06/09/24 19:18 06/09/24 19:22 06/09/24 19:44 Temperature 94.6 F L 94.6 F L Temperature Source Axillary Axillary Pulse Rate 105 H 105 H Respiratory Rate 25 H 25 H Respiratory Effort Respiratory Pattern Blood Pressure 105/62 105/62 Blood Pressure Mean 76 76 Pulse Ox 91 91 Oxygen Delivery Method Room Air Room Air Room Air 06/09/24 19:53 06/09/24 20:11 06/09/24 20:18 Temperature 98.5 F 98 F Temperature Source Rectal Core Pulse Rate 103 H Respiratory Rate 23 H Respiratory Effort Normal Respiratory Pattern Normal Blood Pressure 106/81 H Blood Pressure Mean 89 Pulse Ox 92 Oxygen Delivery Method Room Air 06/09/24 20:21 06/09/24 20:39 06/09/24 21:00 Temperature 98 F 98.2 F 98.4 F Temperature Source Core Core Pulse Rate 102 H 100 101 H Respiratory Rate 20 H 20 H 26 H Respiratory Effort Respiratory Pattern Blood Pressure 106/81 H 119/70 124/62 H Blood Pressure Mean 89 86 82 Pulse Ox 93 96 98 Oxygen Delivery Method Room Air Room Air <Burke River MD - Last Filed: 06/09/24 21:08> Physical Exam Const Vital Signs: 06/09/24 19:18 06/09/24 19:22 06/09/24 19:44 Temperature 94.6 F L 94.6 F L Temperature Source Axillary Axillary Pulse Rate 105 H 105 H Respiratory Rate 25 H 25 H Respiratory Effort Respiratory Pattern Blood Pressure 105/62 105/62 Blood Pressure Mean 76 76 Pulse Ox 91 91 Oxygen Delivery Method Room Air Room Air Room Air 06/09/24 19:53 06/09/24 20:11 06/09/24 20:18 Temperature 98.5 F 98 F Temperature Source Rectal Core Pulse Rate 103 H Respiratory Rate 23 H Respiratory Effort Normal Respiratory Pattern Normal Blood Pressure 106/81 H Blood Pressure Mean 89 Pulse Ox 92 Oxygen Delivery Method Room Air 06/09/24 20:21 06/09/24 20:39 06/09/24 21:00 Temperature 98 F 98.2 F 98.4 F Temperature Source Core Core Pulse Rate 102 H 100 101 H Respiratory Rate 20 H 20 H 26 H Respiratory Effort Respiratory Pattern Blood Pressure 106/81 H 119/70 124/62 H Blood Pressure Mean 89 86 82 Pulse Ox 93 96 98 Oxygen Delivery Method Room Air Room Air [facility] <SAHRA Gama - Last Filed: 06/09/24 21:02> [facility] Narrative Medical decision making narrative: History gathered from: Patient, EMS Differential includes but not limited to COVID-19, pneumonia, LUKE, electrolyte abnormality, UTI 73-year-old male reports being ill for 1 week and testing positive for COVID at home. He lives alone and has been unable to get out of bed. His significant other called the squad. He arrives disheveled covered in his own urine and stool. He initially was tachycardic with a heart rate of 105, tachypneic at 25, 91% on room air. An axillary temp was low but rectal temp is within the normal range. Exam is notable for dry mucous membranes and bruising and excoriations on his bottom from lying in bed with moisture. Workup shows leukopenia at 3.4 which appears chronic. Normal hemoglobin at 14.6. Platelets 155. Chemistry is consistent with dehydration with sodium of 130, BUN 93, creatinine 2.25. Prev iously was 0.88. Lactate is 4.4 which I suspect is from dehydration. Glucose is 233 with normal CO2 and anion gap. Urinalysis is negative. CXR shows patchy bibasilar opacities which I suspect is pneumonia since he has had a cough. He is positive for COVID-19 so this is viral pneumonia and does not need antibiotics. He meets sepsis criteria however I suspect that his elevated creatinine and lactic acidosis are secondary to dehydration and do not think this is acute sepsis. I discussed the case with hospitalist for admission. Lab Data Attestation: I reviewed the patient's lab results. Labs: Laboratory Results - last 24 hr 06/09/24 06/09/24 19:45 20:05 WBC 3.4 L RBC 4.31 L Hgb 14.6 Hct 41.8 MCV 97.0 H MCH 33.9 H MCHC 34.9 RDW Std Deviation 48.1 H RDW Coeff of Chetan 13.3 Plt Count 155 MPV 11.7 Immature Gran % (Auto) 0.600 Neut % (Auto) 63.1 Lymph % (Auto) 7.4 L [place] % (Auto) 28.0 H Eos % (Auto) 0.3 Baso % (Auto) 0.6 Absolute Neuts (auto) 2.1 Absolute Lymphs (auto) 0.25 L Nucleated RBC % 0.9 Differential Comment SCANNED PT 17.2 H INR 1.4 APTT 27.9 Sodium 130 L Potassium 3.7 Chloride 95 L Carbon Dioxide 23.0 Anion Gap 12 BUN 93 H Creatinine 2.25 H Estim Creat Clear Calc 33.37 Est GFR (MDRD) Af Amer 37 L Est GFR (MDRD) Non-Af 30 L BUN/Creatinine Ratio 41.3 H Glucose 233 H Lactic Acid 4.4 H* Calcium 8.2 L Total Bilirubin 1.00 AST 27 ALT 49 Alkaline Phosphatase 82 Total Creatine Kinase 295 Total Protein 6.8 Albumin 2.8 L Globulin 4.0 Albumin/Globulin Ratio 0.7 L Urine Color Yellow Urine Clarity Clear Urine pH 6.0 Ur Specific [place] 1.015 Urine Protein 15 H Urine Glucose (UA) Normal Urine Ketones Negative Urine Occult Blood 10 H Urine Nitrite Negative Urine Bilirubin Negative Urine Urobilinogen Normal Ur Leukocyte Esterase Negative Urine RBC 0-5 SEEN Urine WBC 0 SEEN Ur Squamous Epith Cells 0-5 SEEN Urine Bacteria 0 SEEN Urine Mucus 0 SEEN Radiography Diagnostic Testing: Clinical Impression(s) from Imaging Studies Chest X-Ray 06/09/24 20:05 IMPRESSION: Patchy bibasilar pulmonary opacities may be atelectasis, scarring, or perhaps pneumonia. Electronically Signed: Rai Agrawal DO at 20:22 EST , ED attending interpretation of 1 view chest x-ray shows normal heart size, bibasilar patchiness. <Burke River MD - Last Filed: 06/09/24 21:08> [facility] Lab Data Labs: Laboratory Results - last 24 hr 06/09/24 06/09/24 19:45 20:05 WBC 3.4 L RBC 4.31 L Hgb 14.6 Hct 41.8 MCV 97.0 H MCH 33.9 H MCHC 34.9 RDW Std Deviation 48.1 H RDW Coeff of Chetan 13.3 Plt Count 155 MPV 11.7 Immature Gran % (Auto) 0.600 Neut % (Auto) 63.1 Lymph % (Auto) 7.4 L [place] % (Auto) 28.0 H Eos % (Auto) 0.3 Baso % (Auto) 0.6 Absolute Neuts (auto) 2.1 Absolute Lymphs (auto) 0.25 L Nucleated RBC % 0.9 Differential Comment SCANNED PT 17.2 H INR 1.4 APTT 27.9 Sodium 130 L Potassium 3.7 Chloride 95 L Carbon Dioxide 23.0 Anion Gap 12 BUN 93 H Creatinine 2.25 H Estim Creat Clear Calc 33.37 Est GFR (MDRD) Af Amer 37 L Est GFR (MDRD) Non-Af 30 L BUN/Creatinine Ratio 41.3 H Glucose 233 H Lactic Acid 4.4 H* Calcium 8.2 L Total Bilirubin 1.00 AST 27 ALT 49 Alkaline Phosphatase 82 Total Creatine Kinase 295 Total Protein 6.8 Albumin 2.8 L Globulin 4.0 Albumin/Globulin Ratio 0.7 L Urine Color Yellow Urine Clarity Clear Urine pH 6.0 Ur Specific [place] 1.015 Urine Protein 15 H Urine Glucose (UA) Normal Urine Ketones Negative Urine Occult Blood 10 H Urine Nitrite Negative Urine Bilirubin Negative Urine Urobilinogen Normal Ur Leukocyte Esterase Negative Urine RBC 0-5 SEEN Urine WBC 0 SEEN Ur Squamous Epith Cells 0-5 SEEN Urine Bacteria 0 SEEN Urine Mucus 0 SEEN Radiography Chest X-Ray - ED: Read by ED Physician and Read by Radiologist Diagnostic Testing: Clinical Impression(s) from Imaging Studies Chest X-Ray 06/09/24 20:05 IMPRESSION: Patchy bibasilar pulmonary opacities may be atelectasis, scarring, or perhaps pneumonia. Electronically Signed: Rai Agrawal DO at 20:22 EST , Management Discussion w/another healthcare provider: Hospitalist (Dr. Burke Calderón) Treatment and Re-Evaluation :: Dr. River: I have personally performed a face to face assessment of the patient and have reviewed the TINO Note. I performed a substantive portion of the visit including all aspects of the following. My [place] findings include: History is contracted COVID last week. Generalized weakness, laying in bed. Exam is afebrile. Vital signs noted. Unkempt. Cardiovascular examination mild tachycardia. Lungs clear to auscultation bilaterally anteriorly. Abdomen soft and nontender without guarding or rebound. Medical Decision Making: Sepsis workup. Patient COVID-positive. Appears dehydrated. Lactic acid elevated above 4, however he has an acute kidney injury with creatinine above 2. It was not thought that this was sepsis so antibiotics were deferred. Discussed with Dr. Calderón. Disposition is admitted in stable condition. IV fluid boluses. Other additions or changes: [None] Discharge Plan Triage Chief Complaint: Weakness ED Midlevel Provider: Lani French ED Provider: Burke River Dx/Rx/DC Orders Clinical Impression: Dehydration, Acute kidney injury, Acute hyponatremia, COVID, Diarrhea, Generalized weakness Prescriptions: No Action acyclovir 400 mg tablet 400 mg PO BID budesonide-formoterol [Symbicort] 160-4.5 mcg/actuation HFA aerosol inhaler 1 inh INHALATION Q12H dexamethasone 4 mg tablet 40 mg PO .COMPLEX Rx Instructions: 40 mg orally ON DAY OF CHEMO; ondansetron HCl 8 mg tablet 8 mg PO Q8H lenalidomide 15 mg capsule 15 mg PO DAILY Primary Care Provider: GARRY MONTIEL Referrals: GARRY MONTIEL [Other] Print Language: Citizen Of [place]
[2024-06-09] MEDS: Menthol/Lanolin/Calamine/Znox 113 GM Tube 1 APPLIC TOPICAL (19:41)
[2024-06-09] MEDS: 0.9% Normal Saline (1000mL) 1,000 ML 999 ML IV ×2 (19:42→20:44)
[2024-06-09 20:00] LABS: Absolute Lymphocyte Count 0.25 X10^3/uL (0.83-4.51); Absolute Neutrophil Count 2.1 X10^3/uL (2.0-7.7); Basophil# 0.02 X10^3/uL; Basophil% 0.6 % (0-1); Eosinophil# 0.01 X10^3/uL; Eosinophils% 0.3 % (0-5); Hematocrit 41.8 % (40-54); Hemoglobin 14.6 g/dL (13.0-16.5); Lymphocyte # 0.25 X10^3/ul (0.83-4.51); Lymphocyte % 7.4 % (19-41); Mean Corp Hgb Conc 34.9 g/dL (32-36); Mean Corpuscular Hgb 33.9 pg (27.0-32.0); Mean Platelet Vol. 11.7 fl (6.2-12.0); Monocyte# 0.94 X10^3/uL; NRBC Flagged by Analyzer 0.9 % (0-5); Neutrophil # 2.12 X10^3/uL (2.7-7.7); Neutrophil % 63.1 % (47-70); POSITIVE DIFFERENTIAL YES; POSITIVE MORPHOLOGY YES; Platelet Count 155 K/mm3 (150-450); RBC Distribution Width CV 13.3 % (11.6-14.6); RBC Distribution Width SD 48.1 fl (35.1-43.9); Red Blood Count 4.31 M/mm3 (4.6-6.2); White Blood Count 3.4 K/mm3 (4.4-11.0)
--- NOTE | 2024-06-09 20:05 | RAD_ITS ---
EXAM: XR CHEST, 1 VIEW CLINICAL INDICATION: cough TECHNIQUE: Frontal view of the chest. COMPARISON: No relevant prior studies available. FINDINGS: LUNGS AND PLEURAL SPACES: Patchy bibasilar pulmonary opacities may be atelectasis, scarring, or perhaps pneumonia. No pneumothorax. No effusion. HEART: No significant abnormality. Cardiac silhouette not enlarged. MEDIASTINUM: Central airways and mediastinal contour are unremarkable. BONES/JOINTS: Osseous degenerative changes. No acute fracture. SOFT TISSUES: No significant abnormality. VASCULATURE: Atherosclerosis. RAD/Chest 1 View (Portable) IMPRESSION: Patchy bibasilar pulmonary opacities may be atelectasis, scarring, or perhaps pneumonia. Electronically Signed: Rai Agrawal DO at 20:22 EST ,
[2024-06-09 20:13] LABS: Bacteria 0 SEEN /hpf (None Seen); Mucous, Urine 0 SEEN /hpf (<or=2+); White Blood Cells 0 SEEN /hpf (0-5)
[2024-06-09 20:14] LABS: International Normalized Ratio 1.4; Partial Thromboplast Time 27.9 Seconds (24.1-36.2); Prothrombin Time (Protime)PT. 17.2 SECONDS (11.7-14.9)
[2024-06-09 20:21] LABS: Color, Urine Yellow (Yellow); Glucose, Dipstick Normal (Normal); Ketone-Dipstick Negative (Negative); Leukocyte Esterase-Dipstick Negative /ul (Negative); Nitrite-Dipstick Negative (Negative); Occult Blood-Urine 10 /ul (Negative); Protein-Dipstick 15 mg/dl (Negative); Specific Gravity, Urine 1.015 (1.002-1.030); Urine Bilirubin Dipstick Negative (Negative); Urine Clarity Clear (Clear); Urine Urobilinogen Normal (Normal)
[2024-06-09 20:23] LABS: Differential Indicated SCAN CRITERIA MET
[2024-06-09 20:24] LABS: ALB/GLOB Ratio 0.7 RATIO (0.9-2.4); AST(SGOT) 27 U/L (15-37); Alanine Aminotransfer ALT/SGPT 49 U/L (16-61); Albumin, Serum 2.8 g/dL (3.2-5.0); Alkaline Phosphatase 82 U/L (45-117); Anion Gap 12 (5-15); BUN 93 mg/dL (7-18); BUN/Creat Ratio 41.3 RATIO (10-20); CPK Total, Creatine Kinase 295 U/L (39-308); Calcium,Total 8.2 mg/dL (8.5-10.1); Chloride 95 mmol/L (98-107); Creatinine, Serum 2.25 mg/dL (0.70-1.30); EST Glomerular Filtration Rate 30 mL/min (>60); Est Glom Filt Rate - Afr Amer 37 mL/min (>60); Estimated Creatinine Clearance 33.37 ml/min; Glucose 233 mg/dL (74-106); Potassium 3.7 mmol/L (3.5-5.1); Protein, Total 6.8 g/dL (6.4-8.2); Sodium Level 130 mmol/L (136-145)
[2024-06-09 20:28] LABS: Lactic Acid 4.4 mmol/L (0.4-1.9)
[2024-06-09 20:31] LABS: Red Blood Cells-Urine 0-5 SEEN /hpf (0-5); Squamous Epithelial Cells - UA 0-5 SEEN /hpf (0-5)
--- NOTE | 2024-06-09 20:37 | PCM.HP.STD ---
HPI - General General Date of Admission: 06/09/24 Date of Service: 06/09/24 Chief Complaint: COVID infection with severe weakness and dehydration HPI Narrative MOHSEN OWEN, is a 73 M who presented to [facility] ED on 06/09/2024 for severe weakness with dehydration. Patient has medical history significant for multiple myeloma on active chemotherapy. He lives at home alone. He began feeling ill about 1 week ago including a cough and generalized weakness. Tested positive for COVID-19 at that time. He has now been too weak to get out of bed for the past several days. He has also had profuse diarrhea over the past week. Has history of diarrhea secondary to his multiple myeloma medications but states this was worse than his normal. His appetite has been fairly poor and he feels dehydrated. His friend apparently called EMS for these reasons and he came in for further evaluation. On arrival to the ED he was borderline hypotensive and had sinus tachycardia to the low 100s. Was satting in the low 90s on room air. Afebrile. Labs notable for WBC count 3.4, hemoglobin 14.6 (baseline 11-12), sodium 130, chloride 95, creatinine 2.25, BUN 93, lactic acid 4.4. UA was benign. Chest x-ray showed patchy bibasilar pulmonary opacities concerning for atelectasis versus pneumonia. CT abdomen pelvis without contrast showed mostly decompressed with air-fluid levels present consistent with diarrheal illness, no focal or diffuse inflammatory changes noted. Given these findings, hospitalist was contacted for admission. I saw the patient at bedside in the ED. Patient was fatigued appearing but otherwise sitting up comfortably in bed. He was answering questions with short appropriate responses for me. Stated he felt very dehydrated and was asking to drink water throughout my encounter with him. He denies any fevers or chills. States he generally feels much weaker and more fatigued than his baseline. No other acute concerns at this time. [facility] Medical History (Updated 06/09/24 @ 20:29 by Burke River MD) Rheumatoid arthritis Former smoker History of tobacco abuse Multiple myeloma Colon cancer COPD (chronic obstructive pulmonary disease) Home Medications ?Medication ?Instructions ?Recorded ?Last Taken ?Type acyclovir 400 mg tablet 400 mg PO BID 03/26/23 03/25/23 History budesonide-formoterol HFA 160 1 inh inhalation Q12H 03/26/23 03/25/23 History mcg-4.5 mcg/actuation aerosol inhaler (Symbicort) dexamethasone 4 mg tablet 40 mg PO .COMPLEX 03/26/23 03/22/23 History ondansetron HCl 8 mg tablet 8 mg PO Q8H 03/26/23 03/25/23 History lenalidomide 15 mg capsule 15 mg PO DAILY 06/09/24 Unknown History Allergy/AdvReac Type Severity Reaction Status Date / Time No Known Allergies Allergy Verified 06/09/24 19:18 Surgical History History of colon resection History of total replacement of right hip Social History (Updated 03/26/23 @ 18:[address] Sue Williamson, DO) Smoking Status: Former smoker alcohol intake: current alcohol intake frequency: holidays/special occasions only substance use type: does not use ROS Constitutional Constitutional: Reports fatigue and weakness; Denies chills or fever(s) Eyes Eyes: Denies change in vision ENT HEENT: Denies nasal congestion or nasal discharge Cardiovascular Cardiovascular: Denies chest pain, lightheadedness or palpitations Respiratory/Chest Respiratory/Chest: Reports cough; Denies productive cough, shortness of breath at rest, shortness of breath with exertion or wheezing Gastrointestinal Gastrointestinal: Reports diarrhea; Denies abdominal pain, constipation, nausea or vomiting Genitourinary Genitourinary: Denies dysuria Musculoskeletal Musculoskeletal: Reports myalgias; Denies arthralgias Neurologic Neurologic: Denies dizziness, focal weakness or headache(s) Vital Signs Vital Signs Vital Signs: 06/09/24 19:18 06/09/24 19:22 06/09/24 19:44 Temperature 94.6 F L 94.6 F L Temperature Source Axillary Axillary Pulse Rate 105 H 105 H Respiratory Rate 25 H 25 H Respiratory Effort Respiratory Pattern Blood Pressure 105/62 105/62 Blood Pressure Mean 76 76 Pulse Ox 91 91 Oxygen Delivery Method Room Air Room Air Room Air 06/09/24 19:53 06/09/24 20:11 06/09/24 20:18 Temperature 98.5 F 98 F Temperature Source Rectal Core Pulse Rate 103 H Respiratory Rate 23 H Respiratory Effort Normal Respiratory Pattern Normal Blood Pressure 106/81 H Blood Pressure Mean 89 Pulse Ox 92 Oxygen Delivery Method Room Air 06/09/24 20:21 Temperature 98 F Temperature Source Core Pulse Rate 102 H Respiratory Rate 20 H Respiratory Effort Respiratory Pattern Blood Pressure 106/81 H Blood Pressure Mean 89 Pulse Ox 93 Oxygen Delivery Method Room Air Weight Weight: 105.642 kg Body Mass Index (BMI) 36.4 Physical Exam Const alert, oriented x3 and no apparent distress Constitutional Narrative: Elderly male, class II obesity, fatigued appearing but otherwise sitting up comfortably in bed, answering questions with short appropriate responses, in no acute distress. General Appearance: cooperative and comfortable HEENT normocephalic, head/scalp atraumatic, hearing grossly normal bilaterally and nasal mucous membranes and turbinates normal HEENT Narrative: Dry mucous membranes. Eyes PERRL, EOMs intact bilaterally and conjunctivae normal Neck full ROM Chest inspection of chest normal Resp normal respiratory effort and no use of accessory muscles Resp Narrative: Breathing comfortably on room air at rest. Mildly decreased breath sounds in bilateral lung bases but otherwise good air movement throughout with no wheezing or crackles noted. Cardio regular rate, regular rhythm, no murmurs and peripheral pulses 2+ throughout GI normal to inspection, nondistended, normoactive bowel sounds, soft to palpation, non-tender and non-distended Back/Spine normal ROM Extremity normal to inspection, full ROM and no pedal edema Skin no rashes or lesions noted Psych mental status grossly normal Results Lab / Micro Data 06/09/24 19:45 06/09/24 19:45 Labs: Laboratory Results - last 24 hr 06/09/24 19:45: WBC 3.4 L, RBC 4.31 L, Hgb 14.6, Hct 41.8, MCV 97.0 H, MCH 33.9 H, MCHC 34.9, RDW Std Deviation 48.1 H, RDW Coeff of Chetan 13.3, Plt Count 155, MPV 11.7, Immature Gran % (Auto) 0.600, Neut % (Auto) 63.1, Lymph % (Auto) 7.4 L, [place] % (Auto) 28.0 H, Eos % (Auto) 0.3, Baso % (Auto) 0.6, Absolute Neuts (auto) 2.1, Absolute Lymphs (auto) 0.25 L, Nucleated RBC % 0.9, PT 17.2 H, INR 1.4, APTT 27.9, Sodium 130 L, Potassium 3.7, Chloride 95 L, Carbon Dioxide 23.0, Anion Gap 12, BUN 93 H, Creatinine 2.25 H, Estim Creat Clear Calc 33.37, Est GFR (MDRD) Af Amer 37 L, Est GFR (MDRD) Non-Af 30 L, BUN/Creatinine Ratio 41.3 H, Glucose 233 H, Lactic Acid 4.4 H*, Calcium 8.2 L, Total Bilirubin 1.00, AST 27, ALT 49, Alkaline Phosphatase 82, Total Creatine Kinase 295, Total Protein 6.8, Albumin 2.8 L, Globulin 4.0, Albumin/Globulin Ratio 0.7 L 06/09/24 20:05: Urine Color Yellow, Urine Clarity Clear, Urine pH 6.0, Ur Specific [place] 1.015, Urine Protein 15 H, Urine Glucose (UA) Normal, Urine Ketones Negative, Urine Occult Blood 10 H, Urine Nitrite Negative, Urine Bilirubin Negative, Urine Urobilinogen Normal, Ur Leukocyte Esterase Negative, Urine RBC 0-5 SEEN, Urine WBC 0 SEEN, Ur Squamous Epith Cells 0-5 SEEN, Urine Bacteria 0 SEEN, Urine Mucus 0 SEEN Imaging Radiology Impression Chest X-Ray 06/09/24 20:05 IMPRESSION: Patchy bibasilar pulmonary opacities may be atelectasis, scarring, or perhaps pneumonia. Electronically Signed: Rai Agrawal DO at 20:22 EST , Assessment & Plan Assessment/Plan (1) COVID: (2) Generalized weakness: (3) Diarrhea: (4) Acute kidney injury: (5) Acute hyponatremia: (6) Dehydration: PLAN: Plan Patient is a 73-year-old male who presented [facility] ED on 06/09/2024 with worsening weakness and dehydration. 1. Acute on chronic debility secondary to COVID infection ? Admit under inpatient status to PCU. COVID-positive on admit here, though patient notes he was COVID-positive on outpatient testing about 1 week prior to admission. Chest x-ray with questionable pneumonia but patient stable on room air at rest. Will hold on treating with steroids at this time. Remdesivir contraindicated due to LUKE. Patient has been unable to get out of bed for the last several days and lives at home alone. PT/OT/case management consulted. 2. LUKE with dehydration, elevated lactic acid, mild hyponatremia ? Creatinine 2.25, BUN 93 on admit. Baseline creatinine around 0.9. Lactic acid 4.4. Sodium 130, chloride 95. All findings suspected secondary to severe dehydration from poor p.o. intake and diarrhea in setting of COVID infection. Low concern for superimposed bacterial infection. Did not meet sepsis criteria on admit. Given 2 L IV fluids in the ED, follow-up a.m. BMP and monitor urine output. 3. Diarrhea ? Patient has history of diarrhea on Revlimid but reports worsening diarrhea over the past week. CT abdomen pelvis on admit showed no colitis but did show air-fluid levels in colon consistent with a diarrheal illness. Manage symptomatically. 4. Multiple myeloma ? Follows with Dr. Roberts. Last office visit was in late March with SYSTEMS SOFTWARE DESIGNER, reviewed note in [facility]. Is currently on daratumumab every 8 weeks and Revlimid for 3 weeks per 28-day cycle. Okay to continue home acyclovir here. Will hold Revlimid while inpatient. 5. COPD ? Stable on room air in ED and chest x-ray fairly unremarkable, not in acute exacerbation. Continue home long-acting inhaler. 6. Class II obesity ? BMI 35 on admit. Complicates hospital course, care and prognosis. 7. Former tobacco use ? Encouraged continued cessation. DVT prophylaxis: Heparin subcu CODE STATUS: Full code, verified Expect disposition: TBD Total clinical time spent by myself addressing the patient's medical issues, reviewing all the data, and collaborating with patient's care team: 75 minutes. Sepsis Attestation Sepsis Alert: Yes Sepsis Attestation: Sepsis Ruled Out Date exam was performed: 06/09/24 Time exam was performed: 23:30 Possible Source of Sepsis: Pulmonary Sepsis Organ Dysfunction Criteria Present: Creatinine > 2.0 mg/dL and Lactic Acid > 2 mmol/L Supportive Findings: Findings most likely due to dehydration from COVID infection. Sepsis ruled out. Charges/Coding Visit Charges Inpatient E&M: 44305 Init Hosp L3
[2024-06-09 21:00] LABS: Differential Comment SCANNED
--- NOTE | 2024-06-09 21:07 | CM.ED ---
Social Work SW entered patient room, patient was lethargic, keeping eyes closed throughout most of conversation. Patient unable to tell SW events that led to being brought to the ED. According to EMS, a friend called out of concern and EMS found patient to be laying in bed, covered in urine and feces. Patient declined SW calling anyone to let them know he was in the ER. SW asked about contacting his girlfriend who is listed on his facesheet, patient stated his girlfriend had anxiety and she doesnt like to be out of the house. 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 Patient not able or willing to participate in further conversation. Rimma Murillo, FENCE INSTALLER HELPER, BREAK AND LOAD OPERATOR
--- NOTE | 2024-06-09 21:28 | CT_ITS ---
EXAM: CT ABDOMEN AND PELVIS WITHOUT INTRAVENOUS CONTRAST CLINICAL INDICATION: severe diarrhea, eval for colitis TECHNIQUE: Helically acquired images were obtained of the abdomen and pelvis without intravenous contrast. This CT exam was performed using one or more of the following dose reduction techniques: automated exposure control, adjustment of the mA and/or kV according to patient size, and/or use of iterative reconstruction technique. COMPARISON: No relevant prior studies available. FINDINGS: LOWER THORAX: Coronary artery calcifications partially visualized. Patchy consolidative airspace disease in the visualized lower lobes may be pneumonia. No cardiomegaly. No significant pericardial effusion. ABDOMEN: LIVER: No significant abnormality. Homogeneous. GALLBLADDER AND BILE DUCTS: No significant abnormality. No calcified gallstones. No gallbladder distention or wall edema. No intra- or extrahepatic biliary ductal dilation. PANCREAS: Fatty atrophy of the pancreas. No focal cystic mass. SPLEEN: Small accessory spleens are visualized. ADRENALS: Nonspecific nodule measuring 1 cm in the left adrenal gland. KIDNEYS AND URETERS: No significant abnormality. Normal renal size and position. No hydronephrosis. STOMACH AND BOWEL: Colorectal anastomosis identified. The colon is mostly decompressed with air fluid levels identified. No small bowel obstruction. No focal inflammatory change. PELVIS: APPENDIX: Normal appendix in the right lower quadrant. BLADDER: There is a Bernard catheter present. Urinary bladder is decompressed. REPRODUCTIVE: Normal as visualized. No mass. ABDOMEN and PELVIS: INTRAPERITONEAL SPACE: No significant abnormality. No ascites or other fluid collection. No free air. BONES/JOINTS: Degenerative changes in the spine and left hip. Right hip arthroplasty. SOFT TISSUES: Postoperative changes in the interval wall with associated hernia repair. Low-attenuation collection in the anterior abdominal wall measures up to 1.2 cm in thickness and may be seroma or chronic hematoma. VASCULATURE: Atherosclerosis of the aorta and its branch vessels. LYMPH NODES: No significant abnormality. No enlarged lymph nodes. CT/Abdomen/Pelvis without Cont IMPRESSION: 1. Postoperative changes in the interval wall with associated hernia repair. Low-attenuation collection in the anterior abdominal wall measures up to 1.2 cm in thickness and may be seroma or chronic hematoma. 2. Patchy consolidative airspace disease in the visualized lower lobes may be pneumonia. 3. Nonspecific nodule measuring 1 cm in the left adrenal gland. ACR White Paper guidelines (Renata et al. JACR 2017; 14(8):4070-5601) recommend a low dose, non-contrast adrenal CT or chemical-shift adrenal MRI follow-up study. 4. Colorectal anastomosis identified. 5. The colon is mostly decompressed with air fluid levels identified. No small bowel obstruction. This would correlate with a diarrheal illness. No focal or diffuse inflammatory change. Electronically Signed: Rai Agrawal DO at 22:38 EST ,
--- NOTE | 2024-06-09 21:33 | ED.RN ---
THIS RN INFORMED SAHRA ARCHULETA OF SEPSIS ALERT FOR PATIENT. FLUID RESUSCITATION ORDERED. NO ANTIBIOTICS ORDERED D/T LACK OF ELEVATED WBC AND LIKELY VIRAL CAUSE OF INFECTION WITH RECENT COVID POSITIVE TEST.
[2024-06-09 21:55] LABS: Hemoglobin A1c 6.5 % (3.8-5.6)
[2024-06-09] MEDS: CLARIFY ORDER 1 EACH NOTE (22:38)
[2024-06-09] MEDS: Acyclovir 200 MG Capsule 400 MG PO (22:39)
[2024-06-09] MEDS: Budesonide Respules 0.5 MG/2 ML AMPUL.NEB. INHALATION (23:05)
[2024-06-09] MEDS: Albuterol 2.5 MG/3 ML VIAL.NEB. INHALATION (23:05)
[2024-06-09 23:53] LABS: Reflex Lactate? Y
[2024-06-10] VITALS (17 sets, daily range): BP systolic 93–131; BP diastolic 48–72; PULSE 95–120; RESP 16–27; TEMP 36.3–38.8; O2SAT 91–97
[2024-06-10 01:10] LABS: Lactic Acid 2.1 mmol/L (0.4-1.9)
[2024-06-10] MEDS: 0.9% Normal Saline (1000mL) 1,000 ML 500 ML IV (01:40)
[2024-06-10] MEDS: Heparin Injection (Vial) 5,000 UNIT/ML VIAL 5000 UNIT SC ×3 (06:12→22:09)
[2024-06-10] MEDS: Albuterol 2.5 MG/3 ML VIAL.NEB. INHALATION ×2 (06:52→12:55)
[2024-06-10] MEDS: Budesonide Respules 0.5 MG/2 ML AMPUL.NEB. INHALATION (06:52)
[2024-06-10 07:05] LABS: Hematocrit 37.5 % (40-54); Hemoglobin 12.8 g/dL (13.0-16.5); Mean Corp Hgb Conc 34.1 g/dL (32-36); Mean Corpuscular Hgb 33.5 pg (27.0-32.0); Mean Corpuscular Volume 98.2 fL (80-94); Mean Platelet Vol. 11.1 fl (6.2-12.0); Platelet Count 112 K/mm3 (150-450); RBC Distribution Width CV 13.4 % (11.6-14.6); RBC Distribution Width SD 48.2 fl (35.1-43.9); Red Blood Count 3.82 M/mm3 (4.6-6.2); White Blood Count 2.3 K/mm3 (4.4-11.0)
[2024-06-10 07:23] LABS: Anion Gap 10 (5-15); BUN 71 mg/dL (7-18); BUN/Creat Ratio 51.4 RATIO (10-20); Chloride 107 mmol/L (98-107); Creatinine, Serum 1.38 mg/dL (0.70-1.30); EST Glomerular Filtration Rate 53 mL/min (>60); Est Glom Filt Rate - Afr Amer 65 mL/min (>60); Estimated Creatinine Clearance 53.29 ml/min; Glucose 178 mg/dL (74-106); Potassium 3.3 mmol/L (3.5-5.1); Sodium Level 137 mmol/L (136-145)
--- NOTE | 2024-06-10 07:54 | PCM.PN.HOSP ---
Reason for Visit Reason for Visit: Diagnoses Dehydration (06/09/24) Hypo-osmolality and hyponatremia (06/09/24) Acute kidney failure, unspecified (06/09/24) Diarrhea, unspecified (06/09/24) Weakness (06/09/24) COVID-19 (06/09/24) Subjective Subjective Patient is a 73-year-old gentleman with history of multiple myeloma who was diagnosed with COVID a week prior to his admission presented with progressive generalized weakness Objective Data Objective Data Vital Signs: Vital Signs Temp Pulse Resp BP Pulse Ox O2 Del Method O2 Flow Rate 100.7 F H 118 H 22 H 120/52 L 93 Nasal Cannula 2 06/10/24 05:50 06/10/24 06:53 06/10/24 06:53 06/10/24 05:50 06/10/24 06:53 06/10/24 06:53 06/10/24 06:53 Oxygen Flow Rate (L/min) 2 Oxygen Delivery Method Nasal Cannula Weight: 101.4 kg Body Mass Index (BMI) 34.9 Intake & Output: Intake and Output for Last 24 Hours 06/08/24 06/09/24 06/10/24 23:59 23:59 23:59 Intake Total 2030 / 2030 1800 / 1800 Output Total 700 / 700 550 / 550 Balance 1330 / 1330 1250 / 1250 Lab / Micro Data 06/10/24 06:50 06/10/24 06:50 Labs: Laboratory Results - last 24 hr 06/09/24 00:15: Lactic Acid 2.1 H* 06/09/24 19:45: WBC 3.4 L, RBC 4.31 L, Hgb 14.6, Hct 41.8, MCV 97.0 H, MCH 33.9 H, MCHC 34.9, RDW Std Deviation 48.1 H, RDW Coeff of Chetan 13.3, Plt Count 155, MPV 11.7, Immature Gran % (Auto) 0.600, Neut % (Auto) 63.1, Lymph % (Auto) 7.4 L, [place] % (Auto) 28.0 H, Eos % (Auto) 0.3, Baso % (Auto) 0.6, Absolute Neuts (auto) 2.1, Absolute Lymphs (auto) 0.25 L, Nucleated RBC % 0.9, Differential Comment SCANNED, PT 17.2 H, INR 1.4, APTT 27.9, Sodium 130 L, Potassium 3.7, Chloride 95 L, Carbon Dioxide 23.0, Anion Gap 12, BUN 93 H, Creatinine 2.25 H, Estim Creat Clear Calc 33.37, Est GFR (MDRD) Af Amer 37 L, Est GFR (MDRD) Non-Af 30 L, BUN/Creatinine Ratio 41.3 H, Glucose 233 H, Hemoglobin A1c 6.5 H, Lactic Acid 4.4 H*, Calcium 8.2 L, Total Bilirubin 1.00, AST 27, ALT 49, Alkaline Phosphatase 82, Total Creatine Kinase 295, Total Protein 6.8, Albumin 2.8 L, Globulin 4.0, Albumin/Globulin Ratio 0.7 L 06/09/24 20:05: Urine Color Yellow, Urine Clarity Clear, Urine pH 6.0, Ur Specific [place] 1.015, Urine Protein 15 H, Urine Glucose (UA) Normal, Urine Ketones Negative, Urine Occult Blood 10 H, Urine Nitrite Negative, Urine Bilirubin Negative, Urine Urobilinogen Normal, Ur Leukocyte Esterase Negative, Urine RBC 0-5 SEEN, Urine WBC 0 SEEN, Ur Squamous Epith Cells 0-5 SEEN, Urine Bacteria 0 SEEN, Urine Mucus 0 SEEN 06/10/24 06:50: WBC 2.3 L, RBC 3.82 L, Hgb 12.8 L, Hct 37.5 L, MCV 98.2 H, MCH 33.5 H, MCHC 34.1, RDW Std Deviation 48.2 H, RDW Coeff of Chetan 13.4, Plt Count 112 L, MPV 11.1, Sodium 137, Potassium 3.3 L, Chloride 107, Carbon Dioxide 19.0 L, Anion Gap 10, BUN 71 H, Creatinine 1.38 H, Estim Creat Clear Calc 53.29, Est GFR (MDRD) Af Amer 65, Est GFR (MDRD) Non-Af 53 L, BUN/Creatinine Ratio 51.4 H, Glucose 178 H, Calcium 7.0 L Micro: Microbiology 06/09/24 19:48 Mucosa - Nose SARS-CoV-2, Influenza & RSV (PCR) - Final SARS-CoV-2 (COVID 19 PCR) Radiography Diagnostic Testing: Radiology Impression Chest X-Ray 06/09/24 20:05 IMPRESSION: Patchy bibasilar pulmonary opacities may be atelectasis, scarring, or perhaps pneumonia. Electronically Signed: Rai Agrawal DO at 20:22 EST , Abdomen/Pelvis CT 06/09/24 21:28 IMPRESSION: 1. Postoperative changes in the interval wall with associated hernia repair. Low-attenuation collection in the anterior abdominal wall measures up to 1.2 cm in thickness and may be seroma or chronic hematoma. 2. Patchy consolidative airspace disease in the visualized lower lobes may be pneumonia. 3. Nonspecific nodule measuring 1 cm in the left adrenal gland. ACR White Paper guidelines (Renata et al. JACR 2017; 14(8):6513-4768) recommend a low dose, non-contrast adrenal CT or chemical-shift adrenal MRI follow-up study. 4. Colorectal anastomosis identified. 5. The colon is mostly decompressed with air fluid levels identified. No small bowel obstruction. This would correlate with a diarrheal illness. No focal or diffuse inflammatory change. Electronically Signed: Rai Agrawal DO at 22:38 EST , Physical Exam Narrative GENERAL: Patient appears ill looking HEENT: Atraumatic; normocephalic EYES; Anicteric, Normal Conjunctiva NECK; supple, normal thyroid, RESPIRATORY: Diminished to auscultation CARDIOVASCULAR: Regular S1 S2, GI: soft, normoactive bowel sounds, : No Renal angle tenderness; EXTREMITIES: No edema, no clubbing, MUSCULOSKELETAL: no muscle wasting NEURO: Awake; no lateralizing signs. SKIN: No Rash PSYCH; Flat affect Assessment & Plan Assessment/Plan (1) COVID: (2) Generalized weakness: (3) Diarrhea: (4) Acute kidney injury: (5) Acute hyponatremia: (6) Dehydration: PLAN: Plan Patient is a 73-year-old gentleman with history of multiple myeloma who was diagnosed with COVID a week prior to his admission presented with progressive generalized weakness 1. Acute kidney injury ? Admitted to a monitored bed patient started on IV hydration with subsequent monitoring of electrolyte 2. Hypovolemic hyponatremia ? Secondary to dehydration patient is on IV fluid with subsequent monitoring of electrolyte 3. COVID 19 infection ? Symptom management. 4. Diarrhea ? CT of the abdomen did show depressed colon with air-fluid levels plan is to treat symptomatically 5. Bilateral lower lobe patchy consolidative airspace disease questionable pneumonia. ? Given patient immunosuppressive state patient was started on antibiotic therapy 6. Multiple myeloma ? Patient is on Revlimid and follows with Dr. Doherty as outpatient 7. COPD ? Currently not in exacerbation aerosol treatment as needed 8. Class II obesity with BMI of 26 ? Complicating care weight loss advised 9. Physical deconditioning ? Requested for PT OT eval and social organization professor to assist with discharge planning 10. Nonspecific nodule measuring 1 cm in the left adrenal gland -Plan is for patient to undergo subsequent outpatient evaluation with either non-contrast adrenal CT or chemical-shift adrenal MRI follow-up study. 11. DVT prophylaxis Subcu heparin ? Time spent in the patient's overall evaluation,decision-making process, review of diagnostic data, adjustment of management, discussion with other providers, nursing nursing and ancillary staff involved in patient's care documentation, 50 Minutes Charges/Coding Visit Charges Inpatient E&M: 79417 Subs Hosp L3
[2024-06-10] MEDS: 0.9% Normal Saline (500mL Bag) 500 ML 999 ML IV (08:45)
[2024-06-10] MEDS: 0.9% Saline Lock 10 ML Syringe IV ×2 (09:22→11:03)
[2024-06-10] MEDS: Acetaminophen 325 MG Tablet 650 MG PO ×2 (09:22→15:08)
[2024-06-10] MEDS: 0.9% Normal Saline (1000mL) 1,000 ML 150 ML IV ×3 (09:23→22:07)
[2024-06-10] MEDS: Acyclovir 200 MG Capsule 400 MG PO ×2 (11:04→22:09)
[2024-06-10] MEDS: Potassium Chloride Oral Tablet 20 MEQ PO ×2 (15:09→17:27)
--- NOTE | 2024-06-10 16:03 | CASEMGMT ---
YURI HINES Assessment Face to Face with patient for initial transition planning/care coordination assessment. YURI HINES introduced self and role at [facility], pt voices understanding. Pt is A&Ox4 and is resting comfortably in bed and is calm. Care providers, pharmacy, and demographics verified. Admitting dx: COVID, Severe Dehydration and weakness PCP: Brenton Montgomery Specialists: Alejandra (Oncology) [facility] Insurance: LATTO Prescription Benefit: Yes LNOK: Marcella Escalante (SO), Rickie Handley (Son/POA) Living Arrangements: Pt lives alone in a ground level apartment with a flat entrance. Per chart review, the pt was too weak to get out of bed for the last several days. ADLs/IADLs: Pt reports that he is normally independent. Pt is currently requiring assistance Transportation: Self, SO, Son DME: FWW, Cane, BP Machine, Grab bars, shower chair, hospital bed HHC/SNF: Denies History Pt?s goal: Return to PLOF Plan: TBD. Anticipate SNF vs HHC. Dr. Fraire states that the pt will likely need to go to a SNF due to the increased weakness. Current 6-Click score is 10. Therapy was held d/t pt being medically unstable, see notes. At this time, the pt states that he is unsure of what he would like to do at the time of DC. Care Management to follow therapy evaluations and recommendations and f/u with the pt subsequently. Pt denies further questions or concerns at this time. Tiki Fitzgerald RN, CM
[2024-06-11 01:00] VITALS: BP 131/76; PULSE 91; RESP 16; TEMP 36.8; O2SAT 94
[2024-06-11 04:00] VITALS: BP 127/77; PULSE 90; RESP 18; TEMP 36.7; O2SAT 94
[2024-06-11] MEDS: Heparin Injection (Vial) 5,000 UNIT/ML VIAL 5000 UNIT SC ×3 (05:57→22:12)
[2024-06-11 07:28] LABS: Absolute Lymphocyte Count 0.23 X10^3/uL (0.83-4.51); Absolute Neutrophil Count 4.2 X10^3/uL (2.0-7.7); Basophil# 0.01 X10^3/uL; Basophil% 0.2 % (0-1); Eosinophil# 0.09 X10^3/uL; Eosinophils% 1.8 % (0-5); Hematocrit 29.6 % (40-54); Hemoglobin 10.2 g/dL (13.0-16.5); Lymphocyte # 0.23 X10^3/ul (0.83-4.51); Lymphocyte % 4.6 % (19-41); Mean Corp Hgb Conc 34.5 g/dL (32-36); Mean Corpuscular Hgb 33.4 pg (27.0-32.0); Mean Platelet Vol. 12.3 fl (6.2-12.0); NRBC Flagged by Analyzer 0.4 % (0-5); Neutrophil # 4.24 X10^3/uL (2.7-7.7); Neutrophil % 85.4 % (47-70); POSITIVE COUNT YES; POSITIVE DIFFERENTIAL YES; POSITIVE MORPHOLOGY YES; Platelet Count 73 K/mm3 (150-450); RBC Distribution Width CV 13.7 % (11.6-14.6); RBC Distribution Width SD 48.7 fl (35.1-43.9); Red Blood Count 3.05 M/mm3 (4.6-6.2)
[2024-06-11 07:29] LABS: Differential Indicated SCAN CRITERIA MET
--- NOTE | 2024-06-11 07:29 | PN.HOSP_ITS ---
Reason for Visit Reason for Visit: Diagnoses Dehydration (06/09/24) Hypo-osmolality and hyponatremia (06/09/24) Acute kidney failure, unspecified (06/09/24) Diarrhea, unspecified (06/09/24) Weakness (06/09/24) COVID-19 (06/09/24) Subjective Subjective Patient seen continues to improve clinically. Acute kidney injury resolved. Objective Data Objective Data Vital Signs: Vital Signs Temp Pulse Resp BP Pulse Ox O2 Del Method O2 Flow Rate 98.1 F 90 18 127/77 H 94 Nasal Cannula 2 06/11/24 04:00 06/11/24 04:00 06/11/24 04:00 06/11/24 04:00 06/11/24 04:00 06/11/24 04:00 06/11/24 04:00 Oxygen Flow Rate (L/min) 2 Oxygen Delivery Method Nasal Cannula Weight: 101.4 kg Body Mass Index (BMI) 34.9 Intake & Output: Intake and Output for Last 24 Hours 06/09/24 06/10/24 06/11/24 23:59 23:59 23:59 Intake Total 2030 / 2030 5505 / 5625 1420 / 1420 Output Total 700 / 700 1400 / 1650 550 / 550 Balance 1330 / 1330 4105 / 3975 870 / 870 Lab / Micro Data 06/11/24 06:59 06/11/24 06:59 Micro: Microbiology 06/10/24 09:15 Stool Clostridioides difficile (PCR) - Final 06/09/24 19:48 Mucosa - Nose SARS-CoV-2, Influenza & RSV (PCR) - Final SARS-CoV-2 (COVID 19 PCR) Physical Exam Narrative GENERAL: Patient appears ill looking HEENT: Atraumatic; normocephalic EYES; Anicteric, Normal Conjunctiva NECK; supple, normal thyroid, RESPIRATORY: Diminished to auscultation CARDIOVASCULAR: Regular S1 S2, GI: soft, normoactive bowel sounds, : No Renal angle tenderness; EXTREMITIES: No edema, no clubbing, MUSCULOSKELETAL: no muscle wasting NEURO: Awake; no lateralizing signs. SKIN: No Rash PSYCH; Flat affect Assessment & Plan Assessment/Plan (1) COVID: (2) Generalized weakness: (3) Diarrhea: (4) Acute kidney injury: (5) Acute hyponatremia: (6) Dehydration: PLAN: Plan Patient is a 73-year-old gentleman with history of multiple myeloma who was diagnosed with COVID a week prior to his admission presented with progressive generalized weakness 1. Acute kidney injury ? Admitted to a monitored bed patient started on IV hydration with subsequent monitoring of electrolyte ? Patient acute kidney injury resolved. 2. Hypovolemic hyponatremia ? Secondary to dehydration patient is on IV fluid with subsequent monitoring of electrolyte ? Patient hyponatremia resolved sodium level this a.m. is 141 3. Recent COVID 19 infection ? did continue with symptom management 4. Diarrhea ? CT of the abdomen did show depressed colon with air-fluid levels plan is to treat symptomatically 5. Hypokalemia -Corrected per protocol 6. Bilateral lower lobe patchy consolidative airspace disease questionable pneumonia. ? Given patient immunosuppressive state patient was started on antibiotic therapy 7. Multiple myeloma ? Patient is on Revlimid and follows with Dr. Roberts as outpatient 8. COPD ? Currently not in exacerbation aerosol treatment as needed 9. Class II obesity with BMI of 26 ? Complicating care weight loss advised 10. Physical deconditioning ? Requested for PT OT eval and psychosocial rehabilitation counselor to assist with discharge planning 11. Nonspecific nodule measuring 1 cm in the left adrenal gland -Plan is for patient to undergo subsequent outpatient evaluation with either non-contrast adrenal CT or chemical-shift adrenal MRI follow-up study. 12. DVT prophylaxis Subcu heparin ? Time spent in the patient's overall evaluation,decision-making process, review of diagnostic data, adjustment of management, discussion with other providers, nursing nursing and ancillary staff involved in patient's care documentation, 36 Minutes Charges/Coding Visit Charges Inpatient E&M: 22471 Subs Hosp L2
[2024-06-11 07:43] LABS: Anion Gap 5 (5-15); BUN 33 mg/dL (7-18); BUN/Creat Ratio 41.6 RATIO (10-20); Calcium,Total 6.9 mg/dL (8.5-10.1); Chloride 115 mmol/L (98-107); Creatinine, Serum 0.79 mg/dL (0.70-1.30); EST Glomerular Filtration Rate 101 mL/min (>60); Est Glom Filt Rate - Afr Amer 123 mL/min (>60); Estimated Creatinine Clearance 91.92 ml/min; Glucose 153 mg/dL (74-106); Magnesium 2.8 mg/dL (1.6-2.6); Phosphorus 1.3 mg/dL (2.5-4.9); Potassium 3.1 mmol/L (3.5-5.1); Sodium Level 141 mmol/L (136-145)
[2024-06-11 08:21] LABS: Ovalocyte 1+; Toxic Granulation 1+
[2024-06-11 08:22] LABS: Platelet Estimate MOD DEC (ADEQ)
[2024-06-11 09:51] VITALS: BP 134/68; PULSE 107; RESP 20; TEMP 36.6; O2SAT 92
[2024-06-11] MEDS: Potassium Chloride Oral Tablet 20 MEQ 40 MEQ PO (09:54)
[2024-06-11] MEDS: Na Biphos/Potassium Phosphate PACKET 1 PACKET PO ×2 (09:54→22:11)
[2024-06-11] MEDS: Acyclovir 200 MG Capsule 400 MG PO ×2 (09:55→22:11)
[2024-06-11] MEDS: Potassium Chloride Oral Tablet 20 MEQ PO ×2 (12:12→17:52)
[2024-06-11 14:00] VITALS: BP 112/75; PULSE 108; RESP 18; TEMP 37.7; O2SAT 94
[2024-06-11] MEDS: Acetaminophen 325 MG Tablet 650 MG PO (14:51)
[2024-06-11 19:00] VITALS: O2SAT 96
[2024-06-11 20:00] VITALS: BP 110/61; PULSE 95; RESP 18; TEMP 36.4; O2SAT 96
[2024-06-11] MEDS: 0.9% Saline Lock 10 ML Syringe IV (22:11)
[2024-06-12 02:00] VITALS: BP 113/64; PULSE 95; RESP 93; TEMP 36.9; O2SAT 18
[2024-06-12] MEDS: Heparin Injection (Vial) 5,000 UNIT/ML VIAL 5000 UNIT SC ×3 (05:54→22:37)
[2024-06-12 05:56] LABS: Absolute Lymphocyte Count 0.35 X10^3/uL (0.83-4.51); Absolute Neutrophil Count 4.2 X10^3/uL (2.0-7.7); Basophil# 0.07 X10^3/uL; Basophil% 1.4 % (0-1); Eosinophils% 1.9 % (0-5); Hemoglobin 10.1 g/dL (13.0-16.5); Lymphocyte # 0.35 X10^3/ul (0.83-4.51); Lymphocyte % 6.8 % (19-41); Mean Corp Hgb Conc 33.7 g/dL (32-36); Mean Corpuscular Hgb 33.1 pg (27.0-32.0); Mean Corpuscular Volume 98.4 fL (80-94); Mean Platelet Vol. 13.1 fl (6.2-12.0); Monocyte# 0.27 X10^3/uL; Monocyte% 5.3 % (0-10); NRBC Flagged by Analyzer 0 % (0-5); Neutrophil # 4.24 X10^3/uL (2.7-7.7); Neutrophil % 82.5 % (47-70); POSITIVE COUNT YES; POSITIVE DIFFERENTIAL YES; POSITIVE MORPHOLOGY YES; Platelet Count 62 K/mm3 (150-450); RBC Distribution Width CV 13.9 % (11.6-14.6); RBC Distribution Width SD 50.3 fl (35.1-43.9); Red Blood Count 3.05 M/mm3 (4.6-6.2); White Blood Count 5.1 K/mm3 (4.4-11.0)
[2024-06-12 05:57] LABS: Differential Indicated SCAN CRITERIA MET
[2024-06-12 06:25] LABS: Anion Gap 4 (5-15); BUN 22 mg/dL (7-18); BUN/Creat Ratio 27.1 RATIO (10-20); Calcium,Total 7.4 mg/dL (8.5-10.1); Chloride 111 mmol/L (98-107); Creatinine, Serum 0.81 mg/dL (0.70-1.30); EST Glomerular Filtration Rate 99 mL/min (>60); Est Glom Filt Rate - Afr Amer 119 mL/min (>60); Estimated Creatinine Clearance 90.78 ml/min; Glucose 154 mg/dL (74-106); Potassium 3.9 mmol/L (3.5-5.1); Sodium Level 137 mmol/L (136-145)
[2024-06-12 06:32] LABS: Differential Comment SCANNED; Platelet Estimate MKD DEC (ADEQ)
--- NOTE | 2024-06-12 09:49 | PCM.PN.HOSP ---
Reason for Visit Reason for Visit: Diagnoses Dehydration (06/09/24) Hypo-osmolality and hyponatremia (06/09/24) Acute kidney failure, unspecified (06/09/24) Diarrhea, unspecified (06/09/24) Weakness (06/09/24) COVID-19 (06/09/24) Objective Data Objective Data Vital Signs: Vital Signs Temp Pulse Resp BP Pulse Ox O2 Del Method O2 Flow Rate 98.5 F 95 93 H 113/64 18 Nasal Cannula 2 06/12/24 02:00 06/12/24 02:00 06/12/24 02:00 06/12/24 02:00 06/12/24 02:00 06/12/24 02:00 06/12/24 02:00 Oxygen Flow Rate (L/min) 2 Oxygen Delivery Method Nasal Cannula Weight: 223 lb 8.78 oz Body Mass Index (BMI) 34.9 Intake & Output: Intake and Output for Last 24 Hours 06/10/24 06/11/24 06/12/24 23:59 23:59 23:59 Intake Total 5505 / 5625 2820 / 3020 600 / 600 Output Total 1400 / 1650 1200 / 1500 600 / 600 Balance 4105 / 3975 1620 / 1520 0 / 0 Lab / Micro Data 06/12/24 05:30 06/12/24 05:30 Labs: Laboratory Results - last 24 hr 06/12/24 05:30: WBC 5.1, RBC 3.05 L, Hgb 10.1 L, Hct 30.0 L, MCV 98.4 H, MCH 33.1 H, MCHC 33.7, RDW Std Deviation 50.3 H, RDW Coeff of Chetan 13.9, Plt Count 62 L, MPV 13.1 H, Immature Gran % (Auto) 2.100 H, Neut % (Auto) 82.5 H, Lymph % (Auto) 6.8 L, Morrill % (Auto) 5.3, Eos % (Auto) 1.9, Baso % (Auto) 1.4 H, Absolute Neuts (auto) 4.2, Absolute Lymphs (auto) 0.35 L, Nucleated RBC % 0, Differential Comment SCANNED, Platelet Estimate MKD DEC, Sodium 137, Potassium 3.9, Chloride 111 H, Carbon Dioxide 22.0, Anion Gap 4 L, BUN 22 H, Creatinine 0.81, Estim Creat Clear Calc 90.78, Est GFR (MDRD) Af Amer 119, Est GFR (MDRD) Non-Af 99, BUN/Creatinine Ratio 27.1 H, Glucose 154 H, Calcium 7.4 L Micro: Microbiology 06/09/24 20:08 Blood Culture (Wb) - Anticubital Left Blood Culture - Preliminary No growth in 48 hours. 06/09/24 19:45 Blood Culture (Wb) - Anticubital Left Blood Culture - Preliminary No growth in 48 hours. 06/09/24 20:05 Urine, Catheterized Urine Culture - Preliminary GPC Poss Enterococcus sp 06/10/24 09:15 Stool Clostridioides difficile (PCR) - Final 06/09/24 19:48 Mucosa - Nose SARS-CoV-2, Influenza & RSV (PCR) - Final SARS-CoV-2 (COVID 19 PCR) Physical Exam Narrative Seen and examined. Patient has bilateral legs and arms swelling. Tender to touch. On diuretic. Venous duplex was ordered but patient does not want as it hurts. Physical exam General: Alert, Oriented x3, Cooperative. BMI 35.0 kg/m? HEENT: Atraumatic, PERRLA, EOMI, Normocephalic Oral: No Gingival or Mucosal Lesions/ Ulcerations Neck: Supple, No JVD, Negative Carotid Bruits Chest wall/Lungs: Air entry diminished in bilateral lungs. No crepitation/rhonchi Cardiovascular: Regular rate, Regular Rhythm, Normal S1, Normal S2, No M/G/R Abdomen: Bowel Sounds Present, Soft, Non Tender, Non-Distended : Bernard catheter. Dark-colored urine. No renal angle tenderness. No suprapubic tenderness. Extremities: No edema, Capillary Refill Less than 3 Seconds Skin: No rashes, No breakdown Musculoskeletal: No Tenderness to Palpation of Joints or Extremities Neurological: Cranial nerves II-XII grossly intact, DTR 2+/4. No acute focal neurological deficit. Psych/Mental Status: Flat affect. Assessment & Plan Assessment/Plan (1) COVID: (2) Generalized weakness: (3) Diarrhea: (4) Acute kidney injury: (5) Acute hyponatremia: (6) Dehydration: PLAN: Plan Patient is a 73-year-old gentleman with history of multiple myeloma who was diagnosed with COVID a week prior to his admission presented with progressive generalized weakness 1. Acute kidney injury ? Admitted to a monitored bed patient started on IV hydration with subsequent monitoring of electrolyte ? Patient acute kidney injury resolved. 06/12: LUKE resolved. 2. Hypovolemic hyponatremia ? Secondary to dehydration patient is on IV fluid with subsequent monitoring of electrolyte 06/12:? Patient hyponatremia resolved. Serum sodium level 137. 3. Recent COVID 19 infection ? did continue with symptom management 4. Diarrhea ? CT of the abdomen did show depressed colon with air-fluid levels plan is to treat symptomatically 06/12: No BM today. 5. Hypokalemia -Corrected per protocol 6. Bilateral lower lobe patchy consolidative airspace disease questionable pneumonia. ? Given patient immunosuppressive state patient was started on antibiotic therapy 7. Multiple myeloma ? Patient is on Revlimid and follows with Dr. Roberts as outpatient 8. COPD ? Currently not in exacerbation aerosol treatment as needed 9. Class II obesity with BMI of 35 kg/m? ? Complicating care weight loss advised 06/12: Patient requires 3 people assist for standing or ambulate. 10. Physical deconditioning ? Requested for PT OT eval and social service technician to assist with discharge planning 11. Nonspecific nodule measuring 1 cm in the left adrenal gland -Plan is for patient to undergo subsequent outpatient evaluation with either non-contrast adrenal CT or chemical-shift adrenal MRI follow-up study. 12. DVT prophylaxis ?06/12: Platelet count 62K. Has chronic thrombocytopenia, B12 61 - 78,000. 100 55K on admission. Heparin subcu has been discontinued since. Charges/Coding Visit Charges Inpatient E&M: 20926 Subs Hosp L2
[2024-06-12 10:00] VITALS: RESP 20
[2024-06-12] MEDS: Potassium Chloride Oral Tablet 20 MEQ PO ×2 (10:11→17:50)
[2024-06-12] MEDS: Na Biphos/Potassium Phosphate PACKET 1 PACKET PO ×2 (10:11→22:37)
[2024-06-12] MEDS: Acyclovir 200 MG Capsule 400 MG PO ×2 (10:11→22:37)
--- NOTE | 2024-06-12 10:56 | VDLE_ITS ---
Reason For Study: Swelling BLE RIGHT CFV is compressible, spontaneous, phasic, competent and demonstrates normal augmentation. FV is compressible, spontaneous, phasic, competent and demonstrates normal augmentation. Rt Pop V and T/P trunk were assessed with color doppler, normal flow noted. Procedure This is a venous duplex using B-mode, color flow and spectral Doppler. Exam performed portable in patient room. The exam was abbreviated due to the COVID 19 protocol. Bilateral venous study ordered, Limited study: patient refused the rest of the exam; unable to tolerate probe pressure. A preliminary report was called and/or faxed to [facility]. VL/Venous Duplex US - Mik Extrem Interpretation Summary Deep veins of the right lower extremity are patent and compressible segmentally . There is no evidence of right lower extremity deep vein thrombosis. Limited study due to patient intolerance Ordering Physician: Manjit Esposito Performed By: Yana Elam, SAJI, RVT
[2024-06-12] MEDS: Furosemide 20 MG/2 ML VIAL IV ×2 (11:55→17:50)
[2024-06-12] MEDS: Acetaminophen 325 MG Tablet 650 MG PO (11:56)
[2024-06-12] MEDS: 0.9% Saline Lock 10 ML Syringe IV ×3 (11:56→22:38)
[2024-06-12 18:00] VITALS: BP 111/58; PULSE 100; RESP 18; TEMP 36; O2SAT 91; O2SAT 92
[2024-06-12 20:40] VITALS: PULSE 104; RESP 23; O2SAT 91
[2024-06-12] MEDS: Albuterol 2.5 MG/3 ML VIAL.NEB. INHALATION (20:40)
[2024-06-12] MEDS: Budesonide Respules 0.5 MG/2 ML AMPUL.NEB. INHALATION (20:40)
[2024-06-13] VITALS (8 sets, daily range): BP systolic 107–127; BP diastolic 69–88; PULSE 95–118; RESP 16–24; TEMP 36.6–37.2; O2SAT 91–94
[2024-06-13 06:09] LABS: Absolute Lymphocyte Count 0.44 X10^3/uL (0.83-4.51); Absolute Neutrophil Count 4.5 X10^3/uL (2.0-7.7); Basophil# 0.02 X10^3/uL; Basophil% 0.4 % (0-1); Eosinophil# 0.09 X10^3/uL; Eosinophils% 1.7 % (0-5); Hematocrit 30.4 % (40-54); Hemoglobin 10.6 g/dL (13.0-16.5); Lymphocyte # 0.44 X10^3/ul (0.83-4.51); Lymphocyte % 8.1 % (19-41); Mean Corp Hgb Conc 34.9 g/dL (32-36); Mean Corpuscular Volume 97.4 fL (80-94); Mean Platelet Vol. 9.5 fl (6.2-12.0); Monocyte# 0.27 X10^3/uL; NRBC Flagged by Analyzer 0 % (0-5); Neutrophil # 4.51 X10^3/uL (2.7-7.7); Neutrophil % 83.3 % (47-70); POSITIVE COUNT YES; POSITIVE DIFFERENTIAL YES; POSITIVE MORPHOLOGY YES; Platelet Count 51 K/mm3 (150-450); RBC Distribution Width SD 49.8 fl (35.1-43.9); Red Blood Count 3.12 M/mm3 (4.6-6.2); White Blood Count 5.4 K/mm3 (4.4-11.0)
[2024-06-13 06:10] LABS: Differential Indicated SCAN CRITERIA MET
[2024-06-13 06:24] LABS: Anion Gap 3 (5-15); BUN 20 mg/dL (7-18); Calcium,Total 7.5 mg/dL (8.5-10.1); Chloride 106 mmol/L (98-107); Creatinine, Serum 0.83 mg/dL (0.70-1.30); EST Glomerular Filtration Rate 96 mL/min (>60); Est Glom Filt Rate - Afr Amer 116 mL/min (>60); Glucose 143 mg/dL (74-106); Potassium 3.6 mmol/L (3.5-5.1); Sodium Level 137 mmol/L (136-145)
[2024-06-13] MEDS: Heparin Injection (Vial) 5,000 UNIT/ML VIAL 5000 UNIT SC ×3 (06:40→21:08)
[2024-06-13 07:13] LABS: Ovalocyte 1+; Platelet Estimate MOD DEC (ADEQ)
[2024-06-13] MEDS: Albuterol 2.5 MG/3 ML VIAL.NEB. INHALATION (07:46)
[2024-06-13] MEDS: Budesonide Respules 0.5 MG/2 ML AMPUL.NEB. INHALATION (07:46)
[2024-06-13] MEDS: Loperamide 2 MG Capsule PO ×3 (08:24→21:09)
[2024-06-13] MEDS: Potassium Chloride Oral Tablet 20 MEQ PO ×2 (08:25→17:58)
[2024-06-13] MEDS: Acetaminophen 325 MG Tablet 650 MG PO (08:25)
[2024-06-13] MEDS: Na Biphos/Potassium Phosphate PACKET 1 PACKET PO ×2 (10:00→21:08)
[2024-06-13] MEDS: Furosemide 20 MG/2 ML VIAL IV (10:00)
[2024-06-13] MEDS: Acyclovir 200 MG Capsule 400 MG PO ×2 (10:00→21:08)
--- NOTE | 2024-06-13 14:10 | PN.HOSP_ITS ---
Reason for Visit Reason for Visit: Diagnoses Dehydration (06/09/24) Hypo-osmolality and hyponatremia (06/09/24) Acute kidney failure, unspecified (06/09/24) Diarrhea, unspecified (06/09/24) Weakness (06/09/24) COVID-19 (06/09/24) Objective Data Objective Data Vital Signs: Vital Signs Temp Pulse Resp BP Pulse Ox O2 Del Method O2 Flow Rate 98.1 F 98 16 120/88 H 91 Nasal Cannula 2 06/13/24 08:33 06/13/24 08:33 06/13/24 09:00 06/13/24 08:33 06/13/24 09:00 06/13/24 09:00 06/13/24 10:17 Oxygen Flow Rate (L/min) 2 Oxygen Delivery Method Nasal Cannula Weight: 223 lb 8.78 oz Body Mass Index (BMI) 34.9 Intake & Output: Intake and Output for Last 24 Hours 06/11/24 06/12/24 06/13/24 23:59 23:59 23:59 Intake Total 2820 / 3020 1300 / 1400 100 / 100 Output Total 1200 / 1500 2050 / 2050 1300 / 1300 Balance 1620 / 1520 -750 / -650 -1200 / -1200 Lab / Micro Data 06/13/24 05:50 06/13/24 05:50 Labs: Laboratory Results - last 24 hr 06/13/24 05:50: WBC 5.4, RBC 3.12 L, Hgb 10.6 L, Hct 30.4 L, MCV 97.4 H, MCH 34.0 H, MCHC 34.9, RDW Std Deviation 49.8 H, RDW Coeff of Chetan 14.0, Plt Count 51 L, MPV 9.5, Immature Gran % (Auto) 1.500 H, Neut % (Auto) 83.3 H, Lymph % (Auto) 8.1 L, Callahan % (Auto) 5.0, Eos % (Auto) 1.7, Baso % (Auto) 0.4, Absolute Neuts (auto) 4.5, Absolute Lymphs (auto) 0.44 L, Nucleated RBC % 0, Platelet Estimate MOD DEC, Ovalocytes 1+, Sodium 137, Potassium 3.6, Chloride 106, Carbon Dioxide 28.0, Anion Gap 3 L, BUN 20 H, Creatinine 0.83, Estim Creat Clear Calc 88.60, Est GFR (MDRD) Af Amer 116, Est GFR (MDRD) Non-Af 96, BUN/Creatinine Ratio 24.0 H, Glucose 143 H, Calcium 7.5 L Micro: Microbiology 06/09/24 20:05 Urine, Catheterized Urine Culture - Final Enterococcus faecalis 06/09/24 20:08 Blood Culture (Wb) - Anticubital Left Blood Culture - Preliminary No growth in 48 hours. 06/09/24 19:45 Blood Culture (Wb) - Anticubital Left Blood Culture - Preliminary No growth in 48 hours. 06/10/24 09:15 Stool Clostridioides difficile (PCR) - Final 06/09/24 19:48 Mucosa - Nose SARS-CoV-2, Influenza & RSV (PCR) - Final SARS-CoV-2 (COVID 19 PCR) Radiography Diagnostic Testing: Radiology Impression Venous Doppler Study 06/12/24 10:56 Interpretation Summary Deep veins of the right lower extremity are patent and compressible segmentally. There is no evidence of right lower extremity deep vein thrombosis. Limited study due to patient intolerance Ordering Physician: Manjit Esposito Performed By: Yana Elam, SAJI, RVT Physical Exam Narrative Seen and examined. Patient has bilateral legs and arms swelling. Tender to touch. On diuretic. Venous duplex was ordered but patient does not want as it hurts. Physical exam General: Alert, Oriented x3, Cooperative. BMI 35.0 kg/m? HEENT: Atraumatic, PERRLA, EOMI, Normocephalic Oral: No Gingival or Mucosal Lesions/ Ulcerations Neck: Supple, No JVD, Negative Carotid Bruits Chest wall/Lungs: Air entry diminished in bilateral lungs. No crepitation/rhonchi Cardiovascular: Regular rate, Regular Rhythm, Normal S1, Normal S2, No M/G/R Abdomen: Bowel Sounds Present, Soft, Non Tender, Non-Distended : Bernard catheter. Dark-colored urine. No renal angle tenderness. No suprapubic tenderness. Extremities: No edema, Capillary Refill Less than 3 Seconds Skin: No rashes, No breakdown Musculoskeletal: No Tenderness to Palpation of Joints or Extremities Neurological: Cranial nerves II-XII grossly intact, DTR 2+/4. No acute focal neurological deficit. Psych/Mental Status: Flat affect. Assessment & Plan Assessment/Plan (1) COVID: (2) Generalized weakness: (3) Diarrhea: (4) Acute kidney injury: (5) Acute hyponatremia: (6) Dehydration: PLAN: Plan Patient is a 73-year-old gentleman with history of multiple myeloma who was diagnosed with COVID a week prior to his admission presented with progressive generalized weakness 1. Acute kidney injury ? Admitted to a monitored bed patient started on IV hydration with subsequent monitoring of electrolyte ? Patient acute kidney injury resolved. 06/12: LUKE resolved. 2. Hypovolemic hyponatremia ? Secondary to dehydration patient is on IV fluid with subsequent monitoring of electrolyte 06/13:? Patient hyponatremia resolved. Serum sodium level 137. Patient has bilateral leg swelling., Yesterday, he refused for venous duplex. He complained of the leg pain and leg swelling. On IV Lasix, the dose increased. 3. Recent COVID 19 infection ? did continue with symptom management 06/13: Discontinue the COVID isolation. Patient got the symptoms of COVID including cough generalized weakness around [place] time and New Year's Madeleine. 4. Diarrhea ? CT of the abdomen did show depressed colon with air-fluid levels plan is to treat symptomatically 06/12: No BM today. 06/13: Diarrhea has resolved. 5. Hypokalemia -Corrected per protocol 6. Bilateral lower lobe patchy consolidative airspace disease questionable pneumonia. ? Given patient immunosuppressive state patient was started on antibiotic therapy 7. Multiple myeloma ? Patient is on Revlimid and follows with Dr. Roberts as outpatient 8. COPD ? Currently not in exacerbation aerosol treatment as needed 9. Class II obesity with BMI of 35 kg/m? ? Complicating care weight loss advised 06/12: Patient requires 3 people assist for standing or ambulate. 10. Physical deconditioning ? Requested for PT OT eval and geriatric social worker to assist with discharge planning 11. Nonspecific nodule measuring 1 cm in the left adrenal gland -Plan is for patient to undergo subsequent outpatient evaluation with either non-contrast adrenal CT or chemical-shift adrenal MRI follow-up study. 12. DVT prophylaxis ?06/12: Platelet count 62K. Has chronic thrombocytopenia, B12 61 - 78,000. 100 55K on admission. Heparin subcu has been discontinued since. I talked to the patient's son on the phone who is POA. Patient did not answering or responding to to his son call. I communicated with the patient's nurse and patient not eager or interest talk to his son. Charges/Coding Visit Charges Inpatient E&M: 27337 Subs Hosp L2
--- NOTE | 2024-06-13 14:47 | CASEMGMT ---
Discharge Planning A list of SNF providers including quality and resource use data and consistent with the patient's preferred geographic region, medical needs, and insurance network was created in [facility] Guide.? This list was provided to the RN FLORA. June Barbosa, Discharge Planning Asst.
--- NOTE | 2024-06-13 14:58 | CHAPLAIN ---
Type of Pastoral Visit ___ Initial Visit ___ Follow-up Visit ___ On-call Visit ___ General Patient Visit ___ Spiritual Assessment ___ Family Conference ___ Bereavement ___ Rapid Response ___ Code Blue ___ Other (describe below) Pastoral Care Referral From ___ Patient ___ Family ___ Nurse ___ Physician ___ Dispensary Clerk ___ Director Operations ___ Other (describe below) Sacrament/Intervention ___ Active listening ___ Anointing ___ Confucianist ___ Bereavement ___ Communion ___ Elnei exploration ___ ___ Life review ___ Prayer ___ Reconciliation ___ Sacrament of Sick ___ Supportive presence ___ Wedding ___ Other (describe below) Pastoral Comments phone call made into isolation room but the voicemail came on the patient is unable to answer the phone at this time so please try again later
--- NOTE | 2024-06-13 15:09 | CASEMGMT ---
RN CM reviewed therapy notes, patient was min assist x2 to sit at edge of bed and was not able to attempt standing. RN CM in to discuss discharge planning. RN CM reviewed progress with therapy and recommendation for SNF at discharge. Patient resistant to discussing SNF at discharge. Patient lives alone, RN CM inquired how patient would be able to manage at home if he is not able to stand or walker. Patient asked what this RN CM wanted him to do. RN CM asked if patient would think about how he did with therapy and how SNF at discharge would provide therapy daily for him to later return home. Patient asked if this RN CM spoke to son, RN CM updated patient that she did not. RN CM inquired if patient talked with son, patient states yes but did not was to discuss it. Patient states that he will think about going to SNF for additional therapy. RN CM provided patient with SNF list for patient to review. Patient had no further questions or concerns. CM will continue to follow this patient and plan for a safe discharge.
[2024-06-13] MEDS: Furosemide 40 MG/4 ML Vial IV (17:57)
[2024-06-13] MEDS: 0.9% Saline Lock 10 ML Syringe IV ×2 (17:58→21:10)
[2024-06-14] VITALS (30 sets, daily range): BP systolic 101–121; BP diastolic 66–82; PULSE 102–151; RESP 20–24; TEMP 36.4–37.3; O2SAT 89–95
[2024-06-14] MEDS: NSY 0.9% NS BOLUS 500 ML IV (01:18)
[2024-06-14] MEDS: 0.9% Saline Lock 10 ML Syringe IV ×4 (01:20→21:47)
[2024-06-14] MEDS: Potassium Chloride Oral Tablet 20 MEQ PO ×2 (09:33→17:58)
[2024-06-14] MEDS: Na Biphos/Potassium Phosphate PACKET 1 PACKET PO ×2 (09:33→21:43)
[2024-06-14] MEDS: Acyclovir 200 MG Capsule 400 MG PO ×2 (09:33→21:43)
[2024-06-14] MEDS: Furosemide 40 MG/4 ML Vial IV ×2 (09:33→17:58)
[2024-06-14] MEDS: Loperamide 2 MG Capsule PO (09:39)
--- NOTE | 2024-06-14 13:59 | PN.HOSP_ITS ---
Reason for Visit Reason for Visit: Diagnoses Dehydration (06/09/24) Hypo-osmolality and hyponatremia (06/09/24) Acute kidney failure, unspecified (06/09/24) Diarrhea, unspecified (06/09/24) Weakness (06/09/24) COVID-19 (06/09/24) Objective Data Objective Data Vital Signs: Vital Signs Temp Pulse Resp BP Pulse Ox O2 Del Method O2 Flow Rate 98.1 F 111 H 22 H 121/68 H 94 High Flow 7 06/14/24 12:29 06/14/24 12:29 06/14/24 12:29 06/14/24 12:29 06/14/24 12:29 06/14/24 12:29 06/14/24 12:29 Oxygen Flow Rate (L/min) 7 Oxygen Delivery Method High Flow Weight: 223 lb 8.78 oz Body Mass Index (BMI) 34.9 Intake & Output: Intake and Output for Last 24 Hours 06/12/24 06/13/24 06/14/24 23:59 23:59 23:59 Intake Total 1300 / 1400 100 / 340 440 / 440 Output Total 2049 1300 / 1950 925 / 925 Balance -750 / -650 -1200 / -1610 -485 / -485 Lab / Micro Data 06/13/24 05:50 06/13/24 05:50 Micro: Microbiology 06/09/24 20:05 Urine, Catheterized Urine Culture - Final Enterococcus faecalis 06/09/24 20:08 Blood Culture (Wb) - Anticubital Left Blood Culture - Preliminary No growth in 48 hours. 06/09/24 19:45 Blood Culture (Wb) - Anticubital Left Blood Culture - Preliminary No growth in 48 hours. 06/10/24 09:15 Stool Clostridioides difficile (PCR) - Final 06/09/24 19:48 Mucosa - Nose SARS-CoV-2, Influenza & RSV (PCR) - Final SARS-CoV-2 (COVID 19 PCR) Physical Exam Narrative Seen and examined. Patient has bilateral legs and arms swelling. Swelling is getting better. Tender to touch. On diuretic. Venous duplex was ordered but patient does not want as it hurts. Physical exam General: Alert, Oriented x3, Cooperative. BMI 35.0 kg/m? HEENT: Atraumatic, PERRLA, EOMI, Normocephalic Oral: No Gingival or Mucosal Lesions/ Ulcerations Neck: Supple, No JVD, Negative Carotid Bruits Chest wall/Lungs: Air entry diminished in bilateral lungs. No crepitation/rhonchi Cardiovascular: Regular rate, Regular Rhythm, Normal S1, Normal S2, No M/G/R Abdomen: Bowel Sounds Present, Soft, Non Tender, Non-Distended : Bernard catheter. Dark-colored urine. No renal angle tenderness. No suprapubic tenderness. Extremities: Bilateral upper and lower arms edema better., Capillary Refill Less than 3 Seconds Skin: Old scab on the right elbow point/olecranon process. Musculoskeletal: No Tenderness to Palpation of Joints or Extremities Neurological: Cranial nerves II-XII grossly intact, DTR 2+/4. No acute focal neurological deficit. Psych/Mental Status: Flat affect. Assessment & Plan Assessment/Plan (1) COVID: (2) Generalized weakness: (3) Diarrhea: (4) Acute kidney injury: (5) Acute hyponatremia: (6) Dehydration: PLAN: Plan Patient is a 73-year-old gentleman with history of multiple myeloma who was diagnosed with COVID a week prior to his admission presented with progressive generalized weakness 1. Acute kidney injury ? Admitted to a monitored bed patient started on IV hydration with subsequent monitoring of electrolyte ? Patient acute kidney injury resolved. 06/12: LUKE resolved. 2. Hypovolemic hyponatremia ? Secondary to dehydration patient is on IV fluid with subsequent monitoring of electrolyte 06/13:? Patient hyponatremia resolved. Serum sodium level 137. Patient has bilateral leg swelling., Yesterday, he refused for venous duplex. He complained of the leg pain and leg swelling. On IV Lasix, the dose increased. 06/14: Generalized legs and arms edema is better on Lasix 40 IV twice daily 3. Recent COVID 19 infection ? did continue with symptom management 06/13: Discontinue the COVID isolation. Patient got the symptoms of COVID including cough generalized weakness around [place] time and New Year's Madeleine. 4. Diarrhea ? CT of the abdomen did show depressed colon with air-fluid levels plan is to treat symptomatically 06/12: No BM today. 06/13: Diarrhea has resolved. 5. Hypokalemia -Corrected per protocol 06/14: Patient also had hypophosphatemia therefore on Neutra-Phos. 6. Bilateral lower lobe patchy consolidative airspace disease questionable pneumonia. ? Given patient immunosuppressive state patient was started on antibiotic therapy 7. Multiple myeloma ? Patient is on Revlimid and follows with Dr. Roberts as outpatient 8. COPD ? Currently not in exacerbation aerosol treatment as needed 9. Class II obesity with BMI of 35 kg/m? ? Complicating care weight loss advised 06/12: Patient requires 3 people assist for standing or ambulate. 10. Physical deconditioning ? Requested for PT OT eval and social media content manager to assist with discharge planning 11. Nonspecific nodule measuring 1 cm in the left adrenal gland -Plan is for patient to undergo subsequent outpatient evaluation with either non-contrast adrenal CT or chemical-shift adrenal MRI follow-up study. 12. DVT prophylaxis ?06/12: Platelet count 62K. Has chronic thrombocytopenia, B12 61 - 78,000. 100 55K on admission. Heparin subcu has been discontinued since. I talked to the patient's son on the phone who is POA. Patient did not answering or responding to to his son call. I communicated with the patient's nurse and patient not eager or interest talk to his son. Charges/Coding Visit Charges Inpatient E&M: 94092 Subs Hosp L2
--- NOTE | 2024-06-14 19:20 | RAD_ITS ---
STUDY: X-RAY CHEST REASON FOR EXAM: Male, 73 years old. inc o2 needs TECHNIQUE: PA and lateral COMPARISON: None. FINDINGS: There is interstitial infiltrate in the right upper lobe and mixed interstitial/alveolar infiltrates in both lower lobes which may be consistent with Covid pneumonia.. There is no demonstrated pleural abnormality. Normal size heart. Normal mediastinum and aquiles. Normal visualized pulmonary arteries. Mildly calcified aortic arch and descending thoracic aorta. Normal visualized thoracic spine. Normal visualized ribs, clavicles, and right shoulder. Postsurgical changes of left shoulder There is no demonstrated abnormality of the visualized soft tissue structures of the upper abdomen. RAD/Chest PA and Lateral IMPRESSION: Right upper and bilateral lower lobe infiltrate. Electronically Signed: Jj Nesbitt MD at 19:56 EST ,
[2024-06-14] MEDS: Menthol/Lanolin/Calamine/Znox 113 GM Tube 1 APPLIC TOPICAL (21:39)
[2024-06-14] MEDS: Metoprolol(XL)Succ 25 MG Tablet PO (21:42)
[2024-06-14] MEDS: Piperacil/Tazobactam 3.375 GM in 0.9% Normal Saline (50mL MB+) 50 ML IV (21:43)
[2024-06-15] VITALS (38 sets, daily range): BP systolic 85–107; BP diastolic 49–66; PULSE 81–102; RESP 17–90; TEMP 36.6–37.1; O2SAT 87–99
[2024-06-15] MEDS: Na Biphos/Potassium Phosphate PACKET 1 PACKET PO (05:22)
[2024-06-15] MEDS: Piperacil/Tazobactam 3.375 GM in 0.9% Normal Saline (50mL MB+) 50 ML IV ×3 (05:22→22:06)
[2024-06-15 05:42] LABS: Anion Gap 6 (5-15); BUN 20 mg/dL (7-18); BUN/Creat Ratio 18.7 RATIO (10-20); Calcium,Total 7.5 mg/dL (8.5-10.1); Chloride 98 mmol/L (98-107); Creatinine, Serum 1.07 mg/dL (0.70-1.30); EST Glomerular Filtration Rate 72 mL/min (>60); Est Glom Filt Rate - Afr Amer 87 mL/min (>60); Estimated Creatinine Clearance 68.72 ml/min; Glucose 160 mg/dL (74-106); Potassium 3.7 mmol/L (3.5-5.1); Sodium Level 133 mmol/L (136-145)
[2024-06-15] MEDS: Acyclovir 200 MG Capsule 400 MG PO (08:14)
[2024-06-15] MEDS: Metoprolol(XL)Succ 25 MG Tablet PO (08:15)
[2024-06-15] MEDS: Potassium Chloride Oral Tablet 20 MEQ PO (08:15)
[2024-06-15] MEDS: Furosemide 40 MG/4 ML Vial IV (08:15)
[2024-06-15] MEDS: 0.9% Saline Lock 10 ML Syringe IV ×2 (08:25→15:18)
[2024-06-15] MEDS: Menthol/Lanolin/Calamine/Znox 113 GM Tube 1 APPLIC TOPICAL ×2 (08:30→22:06)
[2024-06-15] MEDS: Loperamide 2 MG Capsule PO (09:02)
[2024-06-15 09:10] LABS: BNP,B-Type NATRIURETIC PEPTIDE 60.8 pg/mL (0-100)
[2024-06-15 09:20] LABS: Procalcitonin 3.87 ng/mL (0.00-0.09)
[2024-06-15 09:30] LABS: D-Dimer Quantitative (DVT/PE) 10.62 FEU/ug/m (0.27-0.49)
--- NOTE | 2024-06-15 09:33 | PCM.PN.HOSP ---
Reason for Visit Reason for Visit: Diagnoses Dehydration (06/09/24) Hypo-osmolality and hyponatremia (06/09/24) Acute kidney failure, unspecified (06/09/24) Diarrhea, unspecified (06/09/24) Weakness (06/09/24) COVID-19 (06/09/24) Objective Data Objective Data Vital Signs: Vital Signs Temp Pulse Resp BP Pulse Ox O2 Del Method O2 Flow Rate 97.9 F 95 18 94/53 L 96 Nasal Cannula 8 06/15/24 08:43 06/15/24 08:43 06/15/24 08:43 06/15/24 08:43 06/15/24 08:43 06/15/24 08:43 06/15/24 08:43 Oxygen Flow Rate (L/min) 8 Oxygen Delivery Method Nasal Cannula Weight: 223 lb 8.78 oz Body Mass Index (BMI) 34.9 Intake & Output: Intake and Output for Last 24 Hours 06/13/24 06/14/24 06/15/24 23:59 23:59 23:59 Intake Total 100 / 340 1160 / 1160 50 / 50 Output Total 1300 / 1950 3375 / 3375 200 / 200 Balance -1200 / -1610 -2215 / -2215 -150 / -150 Lab / Micro Data 06/15/24 08:30 06/15/24 04:52 Labs: Laboratory Results - last 24 hr 06/15/24 04:52: Sodium 133 L, Potassium 3.7, Chloride 98, Carbon Dioxide 29.0, Anion Gap 6, BUN 20 H, Creatinine 1.07, Estim Creat Clear Calc 68.72, Est GFR (MDRD) Af Amer 87, Est GFR (MDRD) Non-Af 72, BUN/Creatinine Ratio 18.7, Glucose 160 H, Calcium 7.5 L 06/15/24 05:50: B-Natriuretic Peptide 60.8, Procalcitonin 3.87 H 06/15/24 08:30: D-Dimer Quant (PE/DVT) 10.62 H* Micro: Microbiology 06/09/24 19:45 Blood Culture (Wb) - Anticubital Left Blood Culture - Final No growth in 5 days. 06/09/24 20:08 Blood Culture (Wb) - Anticubital Left Blood Culture - Final No growth in 5 days. 06/09/24 20:05 Urine, Catheterized Urine Culture - Final Enterococcus faecalis 06/10/24 09:15 Stool Clostridioides difficile (PCR) - Final 06/09/24 19:48 Mucosa - Nose SARS-CoV-2, Influenza & RSV (PCR) - Final SARS-CoV-2 (COVID 19 PCR) Radiography Diagnostic Testing: Radiology Impression Chest X-Ray 06/14/24 19:20 IMPRESSION: Right upper and bilateral lower lobe infiltrate. Electronically Signed: Jj Nesbitt MD at 19:56 EST Reading Location ID and State: [facility] / [place] Tel , Service support , Physical Exam Narrative Seen and examined. Patient shortness of breath got worse last 2 days. Yesterday 1 evening was on 8 L of oxygen and chest x-ray PA lateral was done which shows infiltrate in upper lobe there. IV Zosyn. In the morning hypoxia worsens, on 8 L of oxygen BP low 90s and mild tachycardia therefore sepsis protocol followed. Patient has bilateral legs and arms swelling. Swelling is getting better. Physical exam General: Alert, Oriented x3, Cooperative. BMI 35.0 kg/m? HEENT: Atraumatic, PERRLA, EOMI, Normocephalic Oral: No Gingival or Mucosal Lesions/ Ulcerations Neck: Supple, No JVD, Negative Carotid Bruits Chest wall/Lungs: Air entry diminished in bilateral lungs. No crepitation/rhonchi Cardiovascular: Regular rate, Regular Rhythm, Normal S1, Normal S2, No M/G/R Abdomen: Bowel Sounds Present, Soft, Non Tender, Non-Distended : Bernard catheter. Dark-colored urine. No renal angle tenderness. No suprapubic tenderness. Extremities: Bilateral upper and lower arms edema better., Capillary Refill Less than 3 Seconds Skin: Old scab on the right elbow point/olecranon process. Musculoskeletal: No Tenderness to Palpation of Joints or Extremities Neurological: Cranial nerves II-XII grossly intact, DTR 2+/4. No acute focal neurological deficit. Psych/Mental Status: Flat affect. Assessment & Plan Assessment/Plan (1) COVID: (2) Generalized weakness: (3) Diarrhea: (4) Acute kidney injury: (5) Acute hyponatremia: (6) Dehydration: PLAN: Plan Patient is a 73-year-old gentleman with history of multiple myeloma who was diagnosed with COVID a week prior to his admission presented with progressive generalized weakness 1. Most likely sepsis from secondary bacterial pneumonia in immunocompromised/low BP from diuretic: During the hospital course, the patient probably developed sepsis with clinical indicators of tachycardia, tachypnea and severe hypoxia due to pneumonia probably bacterial secondary infection on COVID-19 with acute sepsis-related organ dysfunction as evidenced by acute hypoxic respiratory failure requiring Airvo, 8 L of oxygen, lactic acidosis and elevated procalcitonin. Patient had severe thrombocytopenia from before. D-dimer also elevated. Chest x-ray shows right upper and bilateral lower lobes infiltrate. CTA chest ordered but patient was hemodynamically unstable therefore he will until he gets more stable. Discussed with line production cook/gold frame assembler and wanted to give 2 L bolus to stabilize the blood pressure. If patient gets fluid refractory hypotension requiring vasopressors and then will be transferred to ICU. Patient is also immunosuppressed with history of multiple myeloma on Revlimid and history of colon cancer status post colon resection. ID was consulted. Recommended to add vancomycin. Zosyn was started yesterday. Respiratory panel, urinary antigens and MRSA nasal screen negative. Blood culture pending 2.. Acute kidney injury ? Admitted to a monitored bed patient started on IV hydration with subsequent monitoring of electrolyte ? Patient acute kidney injury resolved. 06/12: LUKE resolved. Hypovolemic hyponatremia ? Secondary to dehydration patient is on IV fluid with subsequent monitoring of electrolyte 06/13:? Patient hyponatremia resolved. Serum sodium level 137. Patient has bilateral leg swelling., Yesterday, he refused for venous duplex. He complained of the leg pain and leg swelling. On IV Lasix, the dose increased. 06/14: Generalized legs and arms edema is better on Lasix 40 IV twice daily 06/15: Patient might have low BP from Lasix. His baseline is also around 110s. Lasix was discontinued. Venous duplex was limited yesterday due to patient intolerance but right lower extremity veins did not show evidence of DVT 3. Recent COVID 19 infection ? did continue with symptom management 06/13: Discontinue the COVID isolation. Patient got the symptoms of COVID including cough generalized weakness around Booker time and New Year's Madeleine. 4. Diarrhea ? CT of the abdomen did show depressed colon with air-fluid levels plan is to treat symptomatically 06/12: No BM today. 06/13: Diarrhea has resolved. 5. Hypokalemia -Corrected per protocol 06/14: Patient also had hypophosphatemia therefore on Neutra-Phos. 6. Bilateral lower lobe patchy consolidative airspace disease questionable pneumonia. ? Given patient immunosuppressive state patient was started on antibiotic therapy 7. Multiple myeloma ? Patient is on Revlimid and follows with Dr. Roberts as outpatient 8. COPD ? Currently not in exacerbation aerosol treatment as needed 9. Class II obesity with BMI of 35 kg/m? ? Complicating care weight loss advised 06/12: Patient requires 3 people assist for standing or ambulate. 10. Physical deconditioning ? Requested for PT OT eval and social work administrator to assist with discharge planning 11. Nonspecific nodule measuring 1 cm in the left adrenal gland -Plan is for patient to undergo subsequent outpatient evaluation with either non-contrast adrenal CT or chemical-shift adrenal MRI follow-up study. 12. DVT prophylaxis ?06/12: Platelet count 62K. Has chronic thrombocytopenia, B12 61 - 78,000. 100 55K on admission. Heparin subcu has been discontinued since. I talked to the patient's son on the phone who is POA. Patient did not answering or responding to to his son call. I communicated with the patient's nurse and patient not eager or interest talk to his son. Microbiology Past 72 Hours 06/15/24 12:34 Nasal Secretion MRSA (PCR) - Final 06/15/24 10:10 Mucosa - Nasopharyngeal Respiratory Panel (PCR) - Final 06/15/24 12:45 Urine Catheter - Bernard Legionella Antigen - Final 06/15/24 12:45 Urine Catheter - Bernard Streptococcus pneumoniae Antigen (M - Final 06/09/24 19:45 Blood Culture (Wb) - Anticubital Left Blood Culture - Final No growth in 5 days. 06/09/24 20:08 Blood Culture (Wb) - Anticubital Left Blood Culture - Final No growth in 5 days. 06/09/24 20:05 Urine, Catheterized Urine Culture - Final Enterococcus faecalis Laboratory Results 06/15/24 04:52: Sodium 133 L, Potassium 3.7, Chloride 98, Carbon Dioxide 29.0, Anion Gap 6, BUN 20 H, Creatinine 1.07, Estim Creat Clear Calc 68.72, Est GFR (MDRD) Af Amer 87, Est GFR (MDRD) Non-Af 72, BUN/Creatinine Ratio 18.7, Glucose 160 H, Calcium 7.5 L 06/15/24 05:50: B-Natriuretic Peptide 60.8, Procalcitonin 3.87 H 06/15/24 08:30: WBC 5.6, RBC 3.15 L, Hgb 10.7 L, Hct 30.9 L, MCV 98.1 H, MCH 34.0 H, MCHC 34.6, RDW Std Deviation 49.8 H, RDW Coeff of Chetan 13.8, Plt Count 45 L*, MPV TNP, Immature Gran % (Auto) 1.200 H, Neut % (Auto) 85.5 H, Lymph % (Auto) 6.7 L, [place] % (Auto) 3.5, Eos % (Auto) 2.0, Baso % (Auto) 1.1 H, Absolute Neuts (auto) 4.8, Absolute Lymphs (auto) 0.38 L, Nucleated RBC % 0, Diff Path Review May foll, Toxic Granulation 1+, Plt Morphology Comment MKD, Target Cells 1+, Ovalocytes 1+, D-Dimer Quant (PE/DVT) 10.62 H*, B-Natriuretic Peptide 57.4 06/15/24 10:18: Lactic Acid 2.4 H*, Total Bilirubin 0.90, Direct Bilirubin 0.46 H, AST 83 H, ALT 65 H, Alkaline Phosphatase 171 H, Total Protein 5.4 L, Albumin 1.8 L, Globulin 3.6 Clinical Impression(s) from Imaging Studies Chest X-Ray 06/09/24 20:05 IMPRESSION: Patchy bibasilar pulmonary opacities may be atelectasis, scarring, or perhaps pneumonia. Electronically Signed: Rai Agrawal DO at 20:22 EST , Abdomen/Pelvis CT 06/09/24 21:28 IMPRESSION: 1. Postoperative changes in the interval wall with associated hernia repair. Low-attenuation collection in the anterior abdominal wall measures up to 1.2 cm in thickness and may be seroma or chronic hematoma. 2. Patchy consolidative airspace disease in the visualized lower lobes may be pneumonia. 3. Nonspecific nodule measuring 1 cm in the left adrenal gland. ACR White Paper guidelines (Renata et al. JACR 2017; 14(8):9486-6919) recommend a low dose, non-contrast adrenal CT or chemical-shift adrenal MRI follow-up study. 4. Colorectal anastomosis identified. 5. The colon is mostly decompressed with air fluid levels identified. No small bowel obstruction. This would correlate with a diarrheal illness. No focal or diffuse inflammatory change. Electronically Signed: Rai Agrawal DO at 22:38 EST , Venous Doppler Study 06/12/24 10:56 Interpretation Summary Deep veins of the right lower extremity are patent and compressible segmentally. There is no evidence of right lower extremity deep vein thrombosis. Limited study due to patient intolerance Ordering Physician: Manjit Esposito Performed By: Yana Elam, SAJI, RVT Chest X-Ray 06/14/24 19:20 IMPRESSION: Right upper and bilateral lower lobe infiltrate. Electronically Signed: Jj Nesbitt MD at 19:56 EST , Sepsis Attestation Sepsis Alert: Yes Sepsis Attestation: Agree w/Sepsis Date exam was performed: 06/15/24 Time exam was performed: 10:00 Possible Source of Sepsis: Pulmonary Sepsis Organ Dysfunction Criteria Present: Acute Respiratory Failure (New need for BiPAP/CPAP or MV) and Platelets <100,000 / uL Fluid Resuscitation Fluid resuscitation indicated?: Yes Fluid Resuscitation ordered: Lesser volume fluid bolus ordered Amount of fluid ordered: 2,000 Reason for lesser fluid bolus:: Concern for fluid overload and Heart failure Sepsis Note Date exam was performed: 06/15/24 Time exam was performed: 14:00 Sepsis Attestation: Sepsis re-evaluation was performed Response to fluids: Fluid responsive hypotension Charges/Coding Addendum Addendum: Total time of the visit including total time spent in counseling or coordination of care, (more than 50% of the total time, spent in obtaining medical information from nurses and other ancillary care providers ,explaining to the patient about labs, imaging, diagnosis and management of active complex medical conditions), management of sepsis, review of labs and imaging is 40 minutes. Visit Charges Inpatient E&M: [id number] [facility] Hosp L3
--- NOTE | 2024-06-15 09:36 | CT_ITS ---
We are attempting to reach an attending provider to discuss findings. An addendum with communication details will be sent when the communication is complete. STUDY: CTA CHEST REASON FOR EXAM: Male, 73 years old. high D-dimer, tachycardia, hypoxia RADIATION DOSAGE (If Supplied By Facility): CTDIvol = ( 12.66 ) mGy, DLP = ( 509.78 ) mGycm TECHNIQUE: The examination was performed with the intravenous administration of IV 100mL Isovue-370. Post-processing of the angiographic images was performed, with multiplanar reformation and 3D reconstruction. The protocol utilizes one or more of the following dose reduction techniques: automated exposure control, adjustment of mA and/or kV according to patient size,and/or use of iterative reconstruction technique. COMPARISON: FINDINGS: Normal enhancement of the main pulmonary artery and right and left pulmonary arteries. There are filling defects of the right peripheral pulmonary arteries. This is compatible with pulmonary embolism. Normal thoracic aorta and visualized great vessels. There is no demonstrated aortic dissection. Normal heart and pericardium. Normal mediastinum. Normal hilar regions. Normal visualized trachea and bronchi. Bibasilar consolidations, right more than left. Normal pleura. Normal chest wall structures. Normal osseous structures. There is a fatty ventral hernia in the upper abdominal wall. CT/CTA Chest W/WO Contrast IMPRESSION: Right pulmonary embolism. No arterial dissection. Bibasilar consolidations, right more than left. Electronically Signed: Niels Torres DO at 16:33 EST ,
[2024-06-15 09:53] LABS: Absolute Lymphocyte Count 0.38 X10^3/uL (0.83-4.51); Absolute Neutrophil Count 4.8 X10^3/uL (2.0-7.7); Basophil# 0.06 X10^3/uL; Basophil% 1.1 % (0-1); Eosinophil# 0.11 X10^3/uL; Hematocrit 30.9 % (40-54); Hemoglobin 10.7 g/dL (13.0-16.5); Lymphocyte # 0.38 X10^3/ul (0.83-4.51); Lymphocyte % 6.7 % (19-41); Mean Corp Hgb Conc 34.6 g/dL (32-36); Mean Corpuscular Volume 98.1 fL (80-94); Monocyte% 3.5 % (0-10); NRBC Flagged by Analyzer 0 % (0-5); Neutrophil # 4.82 X10^3/uL (2.7-7.7); Neutrophil % 85.5 % (47-70); POSITIVE COUNT YES; POSITIVE DIFFERENTIAL YES; RBC Distribution Width CV 13.8 % (11.6-14.6); RBC Distribution Width SD 49.8 fl (35.1-43.9); Red Blood Count 3.15 M/mm3 (4.6-6.2); White Blood Count 5.6 K/mm3 (4.4-11.0)
[2024-06-15 09:59] LABS: Differential Indicated SCAN CRITERIA MET; Platelet Count 45 K/mm3 (150-450)
--- NOTE | 2024-06-15 10:24 | ECHOD_ITS ---
Reason For Study: HYPOTENSION Procedure This was a 2D Doppler, Color Flow transthoracic echocardiogram. Technically difficult study due to uncooperative patient. Patient requested study be finished early due to pain. Exam performed portable in patient room. The exam was abbreviated due to the COVID 19 protocol. Left Ventricle Normal LV size. The left ventricular ejection fraction is 60 %. Right Ventricle Normal right ventricle. Atria Normal left atrium. The right atrium is not well visualized. Mitral Valve The mitral valve is structurally normal. No prolapse or stenosis seen. Tricuspid Valve Normal tricuspid valve. Aortic Valve The aortic valve is not well visualized in the short axis view. Pulmonic Valve The pulmonic valve is not well visualized. Great Vessels Normal sized aortic root. Pericardium/Pleural No pericardial effusion. MMode/2D Measurements & Calculations LVIDd: 3.3 cm IVSd: 1.4 cm LVIDs: 1.7 cm LVPWd: 1.4 cm FS: 48.1 % ECHO/Echo Complete Interpretation Summary Technically difficult study with limited and suboptimal images. The left ventricular ejection fraction is 60 %. Ordering Physician: Manjit Esposito Referring Physician: JAYME PCP Performed By: Blanca Aranda RCS
[2024-06-15 10:27] LABS: Ovalocyte 1+; Toxic Granulation 1+
[2024-06-15 10:28] LABS: Platelet Morphology MKD; Target Cells 1+
--- NOTE | 2024-06-15 10:28 | CON.PCM.ID_ITS ---
Assessment & Plan Assessment/Plan (1) Sepsis: PLAN: Concern for pneumonia in immunosuppressed patient. No abx given prior to zosyn last night. Will order resp pcr panel, sputum cx, procal, lactate. Bcx pending. Covid pcr neg 06/10. Recent covid, not given remdesivir here but at this point would be outside therapeutic window. On zosyn, recommend adding vanc. Will follow, thank you, d/w Dr. Esposito (2) COVID: (3) Acute kidney injury: (4) Hypoxic respiratory failure: HPI Consult Data Date of Consult: 06/15/24 HPI Narrative Reason for Consultation: sepsis HPI Narrative: MOHSEN OWEN, is a 73 M with multiple myeloma, on revlimid, presented 06/09 to ED with two weeks weakness, cough, progressive dyspnea, some diarrhea. Dx with covid a week prior to admit. Admitted with LUKE, lactic acidosis. LUKE resolved, has been getting diuresis, but now with worsened hypoxia and hypotension. Zosyn started at 2200 on 06/14/24, no prior abx given per JUL. Pt with some dyspnea this AM, denies sputum. No abd pain. Full ROS performed and neg except as noted above. [facility] Medical History Rheumatoid arthritis Former smoker History of tobacco abuse Multiple myeloma Colon cancer COPD (chronic obstructive pulmonary disease) Home Medications ?Medication ?Instructions ?Recorded ?Last Taken ?Type acyclovir 400 mg tablet 400 mg PO BID 03/26/23 03/25/23 History budesonide-formoterol HFA 160 1 inh inhalation Q12H 03/26/23 03/25/23 History mcg-4.5 mcg/actuation aerosol inhaler (Symbicort) dexamethasone 4 mg tablet 40 mg PO .COMPLEX 03/26/23 03/22/23 History ondansetron HCl 8 mg tablet 8 mg PO Q8H 03/26/23 03/25/23 History lenalidomide 15 mg capsule 15 mg PO DAILY 06/09/24 Unknown History Allergy/AdvReac Type Severity Reaction Status Date / Time No Known Allergies Allergy Verified 06/09/24 19:18 Surgical History History of colon resection History of total replacement of right hip Social History Smoking Status: Former smoker alcohol intake: current alcohol intake frequency: holidays/special occasions only substance use type: does not use Physical Exam Const alert and no apparent distress General Appearance: cooperative HEENT normocephalic and head/scalp atraumatic Eyes PERRL and EOMs intact bilaterally Neck supple and No nodes Resp Auscultation: diminished lung sounds Cardio Rate: tachycardic GI soft to palpation, non-tender and non-distended Extremity General Extremity: edema Skin Skin Narrative: some redness around IV site LUE Neuro CN's II-XII intact bilaterally Lab / Micro Data Attestation: I reviewed the patient's lab results. 06/15/24 08:30 06/15/24 04:52 Labs: Laboratory Results - last 24 hr 06/15/24 04:52: Sodium 133 L, Potassium 3.7, Chloride 98, Carbon Dioxide 29.0, Anion Gap 6, BUN 20 H, Creatinine 1.07, Estim Creat Clear Calc 68.72, Est GFR (MDRD) Af Amer 87, Est GFR (MDRD) Non-Af 72, BUN/Creatinine Ratio 18.7, Glucose 160 H, Calcium 7.5 L 06/15/24 05:50: B-Natriuretic Peptide 60.8, Procalcitonin 3.87 H 06/15/24 08:30: WBC 5.6, RBC 3.15 L, Hgb 10.7 L, Hct 30.9 L, MCV 98.1 H, MCH 34.0 H, MCHC 34.6, RDW Std Deviation 49.8 H, RDW Coeff of Chetan 13.8, Plt Count 45 L*, MPV TNP, Immature Gran % (Auto) 1.200 H, Neut % (Auto) 85.5 H, Lymph % (Auto) 6.7 L, Levy % (Auto) 3.5, Eos % (Auto) 2.0, Baso % (Auto) 1.1 H, Absolute Neuts (auto) 4.8, Absolute Lymphs (auto) 0.38 L, Nucleated RBC % 0, D-Dimer Quant (PE/DVT) 10.62 H* Micro: Microbiology 06/09/24 19:45 Blood Culture (Wb) - Anticubital Left Blood Culture - Final No growth in 5 days. 06/09/24 20:08 Blood Culture (Wb) - Anticubital Left Blood Culture - Final No growth in 5 days. Imaging Radiology Impression Chest X-Ray 06/14/24 19:20 IMPRESSION: Right upper and bilateral lower lobe infiltrate. Electronically Signed: Jj Nesbitt MD at 19:56 EST ,
--- NOTE | 2024-06-15 10:30 | CPS ---
pt was poked with ABG needle, he then started yelling to please stop and was tensing up his arm/hand and I was not able to collect the sample
[2024-06-15] MEDS: 0.9% Normal Saline (1000mL) 1,000 ML 999 ML IV ×2 (10:37→12:10)
[2024-06-15 10:52] LABS: AST(SGOT) 83 U/L (15-37); Alanine Aminotransfer ALT/SGPT 65 U/L (16-61); Albumin, Serum 1.8 g/dL (3.2-5.0); Alkaline Phosphatase 171 U/L (45-117); Bilirubin, Direct 0.46 mg/dL (0.00-0.30); Globulin 3.6 g/dL (2.2-4.2); Protein, Total 5.4 g/dL (6.4-8.2)
[2024-06-15 11:08] LABS: Lactic Acid 2.4 mmol/L (0.4-1.9)
[2024-06-15 11:32] LABS: BNP,B-Type NATRIURETIC PEPTIDE 57.4 pg/mL (0-100)
[2024-06-15] MEDS: Vancomycin HCl 1,500 MG in 0.9% Normal Saline (500mL Bag) 500 ML 250 MG IV (12:27)
--- NOTE | 2024-06-15 12:36 | CASEMGMT ---
YURI HINES NOTE: Dr Esposito requesting palliative referral. Order placed. Referral sent to [facility] via secure e-mail. Lui FRIEND RN CM
--- NOTE | 2024-06-15 12:42 | PCM.RX.CS ---
Consult Antibiotic Management Pharmacy has been consulted to manage selected antibiotic: Vancomycin Type of Intervention Type of Consult: New start Suspected Infection Suspected Infection: Pneumonia Prior Doses of Antibiotics Prior Doses of Antibiotics Received/Current Regimen: Vancomycin 1500 mg IV x 1 given 06/15/24 @ 1230, patient is already on piperacillin/tazobactam 3.375 grams Q8H Labs Labs: Sodium 133 mmol/L (136-145) L 06/15/24 04:52 Potassium 3.7 mmol/L (3.5-5.1) 06/15/24 04:52 Chloride 98 mmol/L (98-107) 06/15/24 04:52 Carbon Dioxide 29.0 mmol/L (21.0-32.0) 06/15/24 04:52 Anion Gap 6 (5-15) 06/15/24 04:52 BUN 20 mg/dL (7-18) H 06/15/24 04:52 Creatinine 1.07 mg/dL (0.70-1.30) 06/15/24 04:52 Est GFR (MDRD) Af Amer 87 mL/min (>60) 06/15/24 04:52 Est GFR (MDRD) Non-Af 72 mL/min (>60) 06/15/24 04:52 BUN/Creatinine Ratio 18.7 RATIO (10-20) 06/15/24 04:52 Glucose 160 mg/dL (74-106) H 06/15/24 04:52 Microbiology Microbiology: Microbiology 06/09/24 19:45 Blood Culture (Wb) - Anticubital Left Blood Culture - Final No growth in 5 days. 06/09/24 20:08 Blood Culture (Wb) - Anticubital Left Blood Culture - Final No growth in 5 days. 06/09/24 20:05 Urine, Catheterized Urine Culture - Final Enterococcus faecalis 06/10/24 09:15 Stool Clostridioides difficile (PCR) - Final 06/09/24 19:48 Mucosa - Nose SARS-CoV-2, Influenza & RSV (PCR) - Final SARS-CoV-2 (COVID 19 PCR) Dosing Weight Weight used for dosin kg Estimated Creatinine Clearance Estimated Creatinine Clearance: ~ 69 Goal Trough Goal Trough: 15-20 mcg/mL Pharmacy Plan for Drug Dosing Pharmacy Plan for Drug Dosing: Vancomycin 1500 mg IV x 1 followed by 1250 mg Q12H Pharmacy Service will continue to monitor and adjust dosing as required. Follow-Up Labs Follow-Up Labs: Trough: Vancomycin Date/Time Labs Ordered Labs to be done on [date and time ordered]: 06/17/24 @ 0000
[2024-06-15 14:23] LABS: Reflex Lactate? Y
[2024-06-15 16:02] LABS: Lactic Acid 1.3 mmol/L (0.4-1.9)
--- NOTE | 2024-06-15 16:11 | CHAPLAIN ---
Type of Pastoral Visit _x__ Initial Visit ___ Follow-up Visit ___ On-call Visit ___ General Patient Visit ___ Spiritual Assessment ___ Family Conference ___ Bereavement ___ Rapid Response ___ Code Blue ___ Other (describe below) Pastoral Care Referral From _x__ Patient ___ Family _x__ Nurse ___ Physician ___ Pulverizer Feeder ___ Service Tester ___ Other (describe below) Sacrament/Intervention _x__ Active listening ___ Anointing ___ Samaritan ___ Bereavement ___ Communion _x__ Eleni exploration ___ _x__ Life review _x__ Prayer ___ Reconciliation ___ Sacrament of Sick _x__ Supportive presence ___ Wedding ___ Other (describe below) Pastoral Comments RN recommended this visit as patient had made health care decisions today and seems to be somewhat depressed; patient and son are in the room; 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
--- NOTE | 2024-06-15 17:49 | CASEMGMT ---
Social Work- SW attempted to meet with pt to discuss discharge plans and palliative services. Pt was unable to stay awake to converse. Pt groggily gave permission for SW to contact son to discuss discharge plans. SW to follow up with pt and family. OMAR De Paz
[2024-06-15 18:12] LABS: LDH 320 U/L (87-241)
[2024-06-15 18:23] LABS: Immature Platelet Fraction 12.8 % (1.0-7.9); RET-HE 33.2 pg (30-35); Reticulocyte Count 1.43 % (0.5-1.5)
[2024-06-15 18:26] LABS: Platelet Count 43 K/mm3 (150-450)
[2024-06-15 18:29] LABS: Fibrinogen 683 mg/dl (203-444)
[2024-06-15 18:30] LABS: International Normalized Ratio 1.2; Partial Thromboplast Time 31.5 Seconds (24.1-36.2); Prothrombin Time (Protime)PT. 15.3 SECONDS (11.7-14.9)
[2024-06-15] MEDS: HEPARIN/D5w 25,000 UNITS 25,000 UNITS/250 ML IV.SOLN. 14 UNITS CONT INF (18:57)
[2024-06-16] VITALS (13 sets, daily range): BP systolic 98–125; BP diastolic 55–69; PULSE 78–104; RESP 13–21; TEMP 35.6–37; O2SAT 87–100
[2024-06-16 01:55] LABS: Partial Thromboplast Time 80.3 Seconds (24.1-36.2)
[2024-06-16] MEDS: Piperacil/Tazobactam 3.375 GM in 0.9% Normal Saline (50mL MB+) 50 ML IV ×3 (05:17→21:57)
--- NOTE | 2024-06-16 08:46 | EX.PCM.CON.S ---
Assessment & Plan Assessment/Plan (1) Pulmonary embolus, right: PLAN: Plan Discussed with patient that if anticoagulation is able to be continued this is preferred management for PE; however, if it is to be discontinued due to worsening thrombocytopenia then he would be a candidate for IVC filter insertion. I discussed with him the purpose of the IVC filter, specifically to prevent further pulmonary embolus which if it were to occur could lead to worsening illness or . I discussed with him the procedure details. He was resistant to the conversation throughout and in the end expressed that he would not want IVC filter placement. He acknowledged understanding of the risks of not having filter placed should anticoagulation be discontinued including increased morbidity or . We also discussed the risks with anticoagulation with his concurrent low platelets and he was understanding of this as well. He did express that I could discuss with his son as well. I did call his son and discussed IVC filter procedure details, indications, risks, and benefits. I explained to him that at this time his father was declining placement. He was understanding and did confirm that at this time that though he has healthcare POA his father is making his own medical decisions. Discussed with hospitalist Dr. Esposito as well. His PLT count did remain stable at 44 today. He prefers to continue with anticoagulation, declining filter at this time and reasonable to hold off as long as anticoagulation can be continued. Will be available should circumstances change and he wish to reconsider. HPI Consult Data Date of Consult: 06/16/24 HPI Narrative HPI Narrative: MOHSEN OWEN, is a 73 M who presented to the ER via EMS on 06/09/23 with one week of weakness/malaise and diarrhea with positive home COVID test. COVID pcr here was negative 06/10. He was admitted for management. His history is significant for multiple myeloma currently on chemo and follows with Dr. Roberts. He has chronic thrombocytopenia associated with this but PLTs were 155 on admission progressively decreased to 62 on 06/12 so prophylactic heparin SC was stopped. On06/12 he was noted to have some increased lower extremity edema, venous duplex was ordered and proximal aspect of RLE was negative for DVT but the rest was not able to be completed as patient refused due to tenderness. Patient then developed progressively worsened SOB and ultimately had CTA Chest on 06/15 which showed pulmonary embolism of the right peripheral pulmonary arteries, R heart strain was not noted. At that time, Dr. Esposito discussed with Dr. Roberts and plan was to initiate heparin and monitor PLT count, if it dropped to 30 or less then plan would be to discontinue anticoagulation and recommend consideration of IVC filter for which we are consulted. I saw the patient this morning, at that time PLT count from today was still pending. Patient was resting in bed, on 6 lpm O2 via NC. He complained of being hungry and wanting to eat otherwise no specific complaints of pain. [facility] Medical History Rheumatoid arthritis Former smoker History of tobacco abuse Multiple myeloma Colon cancer COPD (chronic obstructive pulmonary disease) Home Medications ?Medication ?Instructions ?Recorded ?Last Taken ?Type acyclovir 400 mg tablet 400 mg PO BID 03/26/23 03/25/23 History budesonide-formoterol HFA 160 1 inh inhalation Q12H 03/26/23 03/25/23 History mcg-4.5 mcg/actuation aerosol inhaler (Symbicort) dexamethasone 4 mg tablet 40 mg PO .COMPLEX 03/26/23 03/22/23 History ondansetron HCl 8 mg tablet 8 mg PO Q8H 03/26/23 03/25/23 History lenalidomide 15 mg capsule 15 mg PO DAILY 06/09/24 Unknown History Allergy/AdvReac Type Severity Reaction Status Date / Time No Known Allergies Allergy Verified 06/09/24 19:18 Surgical History History of colon resection History of total replacement of right hip Social History Smoking Status: Former smoker alcohol intake: current alcohol intake frequency: holidays/special occasions only substance use type: does not use Physical Exam Const alert, oriented x3 and no apparent distress HEENT normocephalic, hearing grossly normal bilaterally, external ears normal and external nose normal Eyes General Eye: normal appearance of both eyes Neck General: normal visual inspection and trachea midline Resp normal respiratory effort, normal air movement, no retractions and no use of accessory muscles Effort and Inspection: able to speak in complete sentences Cardio regular rate and regular rhythm Extremity Extremity Narrative: Bilateral lower extremity edema, 1-2+ Skin no rashes or lesions noted Neuro oriented x3, moves all extremities and no focal motor deficits Speech: speech normal Psych mental status grossly normal Appearance: grossly normal Activity / Motor Behavior: appropriate eye contact Speech: normal speech Mood & Affect: irritable Lab / Micro Data 06/16/24 09:10 06/16/24 09:10 Labs: Laboratory Results - last 24 hr 06/15/24 05:50: B-Natriuretic Peptide 60.8, Procalcitonin 3.87 H 06/15/24 08:30: WBC 5.6, RBC 3.15 L, Hgb 10.7 L, Hct 30.9 L, MCV 98.1 H, MCH 34.0 H, MCHC 34.6, RDW Std Deviation 49.8 H, RDW Coeff of Chetan 13.8, Plt Count 45 L*, MPV TNP, Immature Gran % (Auto) 1.200 H, Neut % (Auto) 85.5 H, Lymph % (Auto) 6.7 L, [place] % (Auto) 3.5, Eos % (Auto) 2.0, Baso % (Auto) 1.1 H, Absolute Neuts (auto) 4.8, Absolute Lymphs (auto) 0.38 L, Nucleated RBC % 0, Diff Path Review May foll, Toxic Granulation 1+, Plt Morphology Comment MKD, Target Cells 1+, Ovalocytes 1+, D-Dimer Quant (PE/DVT) 10.62 H*, B-Natriuretic Peptide 57.4 06/15/24 10:18: Lactic Acid 2.4 H*, Total Bilirubin 0.90, Direct Bilirubin 0.46 H, AST 83 H, ALT 65 H, Alkaline Phosphatase 171 H, Lactate Dehydrogenase 320 H, Total Protein 5.4 L, Albumin 1.8 L, Globulin 3.6 06/15/24 15:13: Lactic Acid 1.3 06/15/24 18:06: Immature Plt Fraction 12.8 H, Retic Count 1.43, Immature Retic Fraction 11.50, Retic Hgb Equivalent 33.2, PT 15.3 H, INR 1.2, APTT 31.5, Fibrinogen 683 H, Direct Antiglob Test NEG w/POLYSPECIFIC 06/16/24 01:30: APTT 80.3 H Micro: Microbiology 06/15/24 12:34 Nasal Secretion MRSA (PCR) - Final 06/15/24 10:10 Mucosa - Nasopharyngeal Respiratory Panel (PCR) - Final 06/15/24 12:45 Urine Catheter - Bernard Legionella Antigen - Final 06/15/24 12:45 Urine Catheter - Bernard Streptococcus pneumoniae Antigen (M - Final 06/09/24 19:45 Blood Culture (Wb) - Anticubital Left Blood Culture - Final No growth in 5 days. 06/09/24 20:08 Blood Culture (Wb) - Anticubital Left Blood Culture - Final No growth in 5 days. Imaging Radiology Impression Chest CTA 06/15/24 09:36 IMPRESSION: Right pulmonary embolism. No arterial dissection. Bibasilar consolidations, right more than left. Electronically Signed: Niels Torres DO at 16:33 EST , ADDENDUM: 06/15/24 1729 IMPRESSION: Right pulmonary embolism. No arterial dissection. Bibasilar consolidations, right more than left. N.B. : The above Results were Read Back by Niels Torres DO to Mya Mckeon RN, and understanding confirmed on 06/15/2024 17:22:19 (ET). Electronically Signed: Niels Torres DO at 16:33 EST , Charges/Coding Visit Charges Inpatient E&M: 07446 Init Hosp L2
[2024-06-16 09:37] LABS: Absolute Lymphocyte Count 0.29 X10^3/uL (0.83-4.51); Absolute Neutrophil Count 5.5 X10^3/uL (2.0-7.7); Basophil# 0.03 X10^3/uL; Basophil% 0.5 % (0-1); Hematocrit 30.8 % (40-54); Hemoglobin 10.6 g/dL (13.0-16.5); Lymphocyte # 0.29 X10^3/ul (0.83-4.51); Lymphocyte % 4.8 % (19-41); Mean Corp Hgb Conc 34.4 g/dL (32-36); Mean Corpuscular Hgb 33.5 pg (27.0-32.0); Mean Corpuscular Volume 97.5 fL (80-94); Monocyte# 0.19 X10^3/uL; Monocyte% 3.1 % (0-10); NRBC Flagged by Analyzer 0 % (0-5); Neutrophil # 5.49 X10^3/uL (2.7-7.7); Neutrophil % 90.4 % (47-70); POSITIVE COUNT YES; POSITIVE DIFFERENTIAL YES; Platelet Count 44 K/mm3 (150-450); RBC Distribution Width CV 13.3 % (11.6-14.6); RBC Distribution Width SD 47.8 fl (35.1-43.9); Red Blood Count 3.16 M/mm3 (4.6-6.2); White Blood Count 6.1 K/mm3 (4.4-11.0)
[2024-06-16 09:39] LABS: Differential Indicated SCAN CRITERIA MET
[2024-06-16 09:48] LABS: Partial Thromboplast Time 72.6 Seconds (24.1-36.2)
[2024-06-16 09:49] LABS: ALB/GLOB Ratio 0.5 RATIO (0.9-2.4); AST(SGOT) 31 U/L (15-37); Alanine Aminotransfer ALT/SGPT 55 U/L (16-61); Albumin, Serum 1.7 g/dL (3.2-5.0); Alkaline Phosphatase 150 U/L (45-117); Anion Gap 8 (5-15); BUN 22 mg/dL (7-18); BUN/Creat Ratio 23.6 RATIO (10-20); Calcium,Total 7.1 mg/dL (8.5-10.1); Chloride 102 mmol/L (98-107); Creatinine, Serum 0.93 mg/dL (0.70-1.30); EST Glomerular Filtration Rate 84 mL/min (>60); Est Glom Filt Rate - Afr Amer 102 mL/min (>60); Estimated Creatinine Clearance 79.07 ml/min; Globulin 3.7 g/dL (2.2-4.2); Glucose 174 mg/dL (74-106); Potassium 3.4 mmol/L (3.5-5.1); Protein, Total 5.4 g/dL (6.4-8.2); Sodium Level 138 mmol/L (136-145)
[2024-06-16 10:00] LABS: Platelet Estimate MKD DEC (ADEQ)
--- NOTE | 2024-06-16 11:09 | PN.HOSP_ITS ---
Reason for Visit Reason for Visit: Diagnoses Sepsis, unspecified organism (06/09/24) Dehydration (06/09/24) Hypo-osmolality and hyponatremia (06/09/24) Respiratory failure, unspecified with hypoxia (06/09/24) Acute kidney failure, unspecified (06/09/24) Diarrhea, unspecified (06/09/24) Weakness (06/09/24) COVID-19 (06/09/24) Objective Data Objective Data Vital Signs: Vital Signs Temp Pulse Resp BP Pulse Ox O2 Del Method O2 Flow Rate 98.6 F 94 16 112/59 L 92 Nasal Cannula 6 06/16/24 09:28 06/16/24 09:28 06/16/24 09:28 06/16/24 09:28 06/16/24 09:28 06/16/24 09:28 06/16/24 09:28 FiO2 55 06/15/24 16:19 Oxygen Flow Rate (L/min) 6 Oxygen Delivery Method Nasal Cannula Weight: 223 lb 8.78 oz Body Mass Index (BMI) 34.9 Intake & Output: Intake and Output for Last 24 Hours 06/14/24 06/15/24 06/16/24 23:59 23:59 23:59 Intake Total 1160 / 1160 2730 / 2730 199.4 / 199.4 Output Total 3375 / 3375 1800 / 1800 300 / 300 Balance -2215 / -2215 930 / 930 -100.6 / -100.6 Lab / Micro Data 06/16/24 09:10 06/16/24 09:10 Labs: Laboratory Results - last 24 hr 06/15/24 08:30: B-Natriuretic Peptide 57.4 06/15/24 10:18: Lactate Dehydrogenase 320 H 06/15/24 15:13: Lactic Acid 1.3 06/15/24 18:06: Immature Plt Fraction 12.8 H, Retic Count 1.43, Immature Retic Fraction 11.50, Retic Hgb Equivalent 33.2, PT 15.3 H, INR 1.2, APTT 31.5, F ibrinogen 683 H, Direct Antiglob Test NEG w/POLYSPECIFIC 06/16/24 01:30: APTT 80.3 H 06/16/24 09:10: WBC 6.1, RBC 3.16 L, Hgb 10.6 L, Hct 30.8 L, MCV 97.5 H, MCH 33.5 H, MCHC 34.4, RDW Std Deviation 47.8 H, RDW Coeff of Chetan 13.3, Plt Count 44 L*, Immature Gran % (Auto) 1.200 H, Neut % (Auto) 90.4 H, Lymph % (Auto) 4.8 L, [place] % (Auto) 3.1, Eos % (Auto) 0.0, Baso % (Auto) 0.5, Absolute Neuts (auto) 5.5, Absolute Lymphs (auto) 0.29 L, Nucleated RBC % 0, Diff Path Review September, Platelet Estimate MKD DEC, APTT 72.6 H, Sodium 138, Potassium 3.4 L, Chloride 102, Carbon Dioxide 28.0, Anion Gap 8, BUN 22 H, Creatinine 0.93, Estim Creat Clear Calc 79.07, Est GFR (MDRD) Af Amer 102, Est GFR (MDRD) Non-Af 84, B UN/Creatinine Ratio 23.6 H, Glucose 174 H, Calcium 7.1 L, Total Bilirubin 0.70, AST 31, ALT 55, Alkaline Phosphatase 150 H, Total Protein 5.4 L, Albumin 1.7 L, Globulin 3.7, Albumin/Globulin Ratio 0.5 L Micro: Microbiology 06/15/24 12:34 Nasal Secretion MRSA (PCR) - Final 06/15/24 10:10 Mucosa - Nasopharyngeal Respiratory Panel (PCR) - Final 06/15/24 12:45 Urine Catheter - Bernard Legionella Antigen - Final 06/15/24 12:45 Urine Catheter - Bernard Streptococcus pneumoniae Antigen (M - Final 06/09/24 19:45 Blood Culture (Wb) - Anticubital Left Blood Culture - Final No growth in 5 days. 06/09/24 20:08 Blood Culture (Wb) - Anticubital Left Blood Culture - Final No growth in 5 days. 06/09/24 20:05 Urine, Catheterized Urine Culture - Final Enterococcus faecalis 06/10/24 09:15 Stool Clostridioides difficile (PCR) - Final 06/09/24 19:48 Mucosa - Nose SARS-CoV-2, Influenza & RSV (PCR) - Final SARS-CoV-2 (COVID 19 PCR) Radiography Diagnostic Testing: Radiology Impression Chest CTA 06/15/24 09:36 IMPRESSION: Right pulmonary embolism. No arterial dissection. Bibasilar consolidations, right more than left. Electronically Signed: Niels Torres DO at 16:33 EST , ADDENDUM: 06/15/24 1729 IMPRESSION: Right pulmonary embolism. No arterial dissection. Bibasilar consolidations, right more than left. N.B. : The above Results were Read Back by Niels Torres DO to Mya Mckeon RN, and understanding confirmed on 06/15/2024 17:22:19 (ET). Electronically Signed: Niels Torres DO at 16:33 EST , Echocardiogram 06/15/24 10:24 Interpretation Summary Technically difficult study with limited and suboptimal images. The left ventricular ejection fraction is 60 %. Ordering Physician: Manjit Esposito Referring Physician: JAYME PCP Performed By: Blanca Aranda RCS Physical Exam Narrative Seen and examined. Shortness of breath and hypoxia better. Patient yesterday O2 requirement came down to even 4 L but right now 6 L No fever. BP 112/59. Patient was discussed extensively with Dr. Kelechi Roberts. Currently on IV heparin drip for PE Patient shortness of breath got worse last 2 days. Yesterday 1 evening was on 8 L of oxygen and chest x-ray PA lateral was done which shows infiltrate in upper lobe there. IV Zosyn. In the morning hypoxia worsens, on 8 L of oxygen BP low 90s and mild tachycardia therefore sepsis protocol followed. Patient has bilateral legs and arms swelling. Swelling is getting better. Physical exam General: Alert, Oriented x3, Cooperative. BMI 35.0 kg/m? HEENT: Atraumatic, PERRLA, EOMI, Normocephalic Oral: No Gingival or Mucosal Lesions/ Ulcerations Neck: Supple, No JVD, Negative Carotid Bruits Chest wall/Lungs: Air entry diminished in bilateral lungs. No crepitation/rhonchi Cardiovascular: Regular rate, Regular Rhythm, Normal S1, Normal S2, No M/G/R Abdomen: Bowel Sounds Present, Soft, Non Tender, Non-Distended : Bernard catheter. Dark-colored urine. No renal angle tenderness. No suprapubic tenderness. Extremities: Bilateral upper and lower arms edema better., Capillary Refill Less than 3 Seconds Skin: Old scab on the right elbow point/olecranon process. Musculoskeletal: No Tenderness to Palpation of Joints or Extremities Neurological: Cranial nerves II-XII grossly intact, DTR 2+/4. No acute focal neurological deficit. Psych/Mental Status: Flat affect. Assessment & Plan Assessment/Plan (1) COVID: (2) Generalized weakness: (3) Diarrhea: (4) Acute kidney injury: (5) Acute hyponatremia: (6) Dehydration: PLAN: Plan Patient is a 73-year-old gentleman with history of multiple myeloma who was diagnosed with COVID a week prior to his admission presented with progressive generalized weakness 1. Most likely sepsis from secondary bacterial pneumonia in immunocompromised/low BP from diuretic: During the hospital course, the patient probably developed sepsis with clinical indicators of tachycardia, tachypnea and severe hypoxia due to pneumonia probably bacterial secondary infection on COVID-19 with acute sepsis-related organ dysfunction as evidenced by acute hypoxic respiratory failure requiring Airvo, 8 L of oxygen, lactic acidosis and elevated procalcitonin. Patient had severe thrombocytopenia from before. D- dimer also elevated. Chest x-ray shows right upper and bilateral lower lobes infiltrate. CTA chest ordered but patient was hemodynamically unstable therefore he will until he gets more stable. Discussed with sales inspector/engine testing supervisor and wanted to give 2 L bolus to stabilize the blood pressure. If patient gets fluid refractory hypotension requiring vasopressors and then will be transferred to ICU. Patient is also immunosuppressed with history of multiple myeloma on Revlimid and history of colon cancer status post colon resection. ID was consulted. Recommended to add vancomycin. Zosyn was started yesterday. Respiratory panel, urinary antigens and MRSA nasal screen negative. Blood culture pending 2.. Acute kidney injury ? Admitted to a monitored bed patient started on IV hydration with subsequent monitoring of electrolyte ? Patient acute kidney injury resolved. 06/12: LUKE resolved. Hypovolemic hyponatremia ? Secondary to dehydration patient is on IV fluid with subsequent monitoring of electrolyte 06/13:? Patient hyponatremia resolved. Serum sodium level 137. Patient has bilateral leg swelling., Yesterday, he refused for venous duplex. He complained of the leg pain and leg swelling. On IV Lasix, the dose increased. 06/14: Generalized legs and arms edema is better on Lasix 40 IV twice daily 06/15: Patient might have low BP from Lasix. His baseline is also around 110s. Lasix was discontinued. Venous duplex was limited yesterday due to patient intolerance but right lower extremity veins did not show evidence of DVT 3. Recent COVID 19 infection ? did continue with symptom management 06/13: Discontinue the COVID isolation. Patient got the symptoms of COVID including cough generalized weakness around [place] time and New Year's Madeleine. 4. Diarrhea ? CT of the abdomen did show depressed colon with air-fluid levels plan is to treat symptomatically 06/12: No BM today. 06/13: Diarrhea has resolved. 5. Hypokalemia -Corrected per protocol 06/14: Patient also had hypophosphatemia therefore on Neutra-Phos. 6. Bilateral lower lobe patchy consolidative airspace disease questionable pneumonia. ? Given patient immunosuppressive state patient was started on antibiotic therapy 7. Multiple myeloma ? Patient is on Revlimid and follows with Dr. Roberts as outpatient 8. COPD ? Currently not in exacerbation aerosol treatment as needed 9. Class II obesity with BMI of 35 kg/m? ? Complicating care weight loss advised 06/12: Patient requires 3 people assist for standing or ambulate. 10. Physical deconditioning ? Requested for PT OT eval and outreach and education social worker to assist with discharge planning 11. Nonspecific nodule measuring 1 cm in the left adrenal gland -Plan is for patient to undergo subsequent outpatient evaluation with either non-contrast adrenal CT or chemical-shift adrenal MRI follow-up study. 12. DVT prophylaxis ?06/12: Platelet count 62K. Has chronic thrombocytopenia, B12 61 - 78,000. 100 55K on admission. Heparin subcu has been discontinued since. I talked to the patient's son on the phone who is POA. Patient did not answering or responding to to his son call. I communicated with the patient's nurse and patient not eager or interest talk to his son. Microbiology Past 72 Hours 06/15/24 12:34 Nasal Secretion MRSA (PCR) - Final 06/15/24 10:10 Mucosa - Nasopharyngeal Respiratory Panel (PCR) - Final 06/15/24 12:45 Urine Catheter - Bernard Legionella Antigen - Final 06/15/24 12:45 Urine Catheter - Bernard Streptococcus pneumoniae Antigen (M - Final 06/09/24 19:45 Blood Culture (Wb) - Anticubital Left Blood Culture - Final No growth in 5 days. 06/09/24 20:08 Blood Culture (Wb) - Anticubital Left Blood Culture - Final No growth in 5 days. 06/09/24 20:05 Urine, Catheterized Urine Culture - Final Enterococcus faecalis Laboratory Results 06/15/24 04:52: Sodium 133 L, Potassium 3.7, Chloride 98, Carbon Dioxide 29.0, Anion Gap 6, BUN 20 H, Creatinine 1.07, Estim Creat Clear Calc 68.72, Est GFR (MDRD) Af Amer 87, Est GFR (MDRD) Non-Af 72, BUN/Creatinine Ratio 18.7, Glucose 160 H, Calcium 7.5 L 06/15/24 05:50: B-Natriuretic Peptide 60.8, Procalcitonin 3.87 H 06/15/24 08:30: WBC 5.6, RBC 3.15 L, Hgb 10.7 L, Hct 30.9 L, MCV 98.1 H, MCH 34.0 H, MCHC 34.6, RDW Std Deviation 49.8 H, RDW Coeff of Chetan 13.8, Plt Count 45 L*, MPV TNP, Immature Gran % (Auto) 1.200 H, Neut % (Auto) 85.5 H, Lymph % (Auto) 6.7 L, [place] % (Auto) 3.5, Eos % (Auto) 2.0, Baso % (Auto) 1.1 H, Absolute Neuts (auto) 4.8, Absolute Lymphs (auto) 0.38 L, Nucleated RBC % 0, Diff Path Review May foll, Toxic Granulation 1+, Plt Morphology Comment MKD, Target Cells 1+, Ovalocytes 1+, D-Dimer Quant (PE/DVT) 10.62 H*, B-Natriuretic Peptide 57.4 06/15/24 10:18: Lactic Acid 2.4 H*, Total Bilirubin 0.90, Direct Bilirubin 0.46 H, AST 83 H, ALT 65 H, Alkaline Phosphatase 171 H, Total Protein 5.4 L, Albumin 1.8 L, Globulin 3.6 Clinical Impression(s) from Imaging Studies Chest X-Ray 06/09/24 20:05 IMPRESSION: Patchy bibasilar pulmonary opacities may be atelectasis, scarring, or perhaps pneumonia. Electronically Signed: Rai CalderonLisbet Agrawal DO at 20:22 EST , Abdomen/Pelvis CT 06/09/24 21:28 IMPRESSION: 1. Postoperative changes in the interval wall with associated hernia repair. Low-attenuation collection in the anterior abdominal wall measures up to 1.2 cm in thickness and may be seroma or chronic hematoma. 2. Patchy consolidative airspace disease in the visualized lower lobes may be pneumonia. 3. Nonspecific nodule measuring 1 cm in the left adrenal gland. ACR White Paper guidelines (Renata et al. JACR 2017; 14(8):4858-9286) recommend a low dose, non-contrast adrenal CT or chemical-shift adrenal MRI follow-up study. 4. Colorectal anastomosis identified. 5. The colon is mostly decompressed with air fluid levels identified. No small bowel obstruction. This would correlate with a diarrheal illness. No focal or diffuse inflammatory change. Electronically Signed: Rai CalderonLisbet Agrawal DO at 22:38 EST , Venous Doppler Study 06/12/24 10:56 Interpretation Summary Deep veins of the right lower extremity are patent and compressible segmentally. There is no evidence of right lower extremity deep vein thrombosis. Limited study due to patient intolerance Ordering Physician: Manjit Esposito Performed By: Yana Elam, SAJI, RVT Chest X-Ray 06/14/24 19:20 IMPRESSION: Right upper and bilateral lower lobe infiltrate. Electronically Signed: Jj Nesbitt MD at 19:56 EST ,
--- NOTE | 2024-06-16 11:26 | SP.MBSS_ITS ---
Modified Barium Swallow Patient Information Study Date: 06/16/24 Study Time: 10:15 Direct Billable Minutes: 120 Total Minutes procedure & reportin Diagnosis: Hypoxic respiratory failure J96.91 Referring Physician: aMnjit Esposito Reason for Referral: Objectively assess swallow function, assess risk for aspiration, and determine recommendations for least restrictive diet textures and compensatory strategies to improve safety of swallow. Medical History: PMH: Rheumatoid arthritis, Former smoker, History of tobacco abuse, Multiple myeloma, Colon cancer, COPD. Pt presented to [facility] ED on 06/09/2024 for severe weakness with dehydration. Patient has medical history significant for multiple myeloma on active chemoth erapy. He lives at home alone. He began feeling ill about 1 week ago including a cough and generalized weakness unable to get out of bed the past several days before admission. Tested positive for COVID-19 at that time. Diarrhea the past week. His friend called EMS. Pt admitted for management of COVID, generalized weakness, diarrhea, LUKE, and acute hyponatremia. Pt made NPO by nursing 06/14/[address] consult due to swallowing difficulty. BSE recommended soft and bite size textures / thin liquids 06/14/2024; however, the pt's respiratory status worsened after breakfast 06/15/24 and he was made NPO and placed on Airvo. KILN PULLER recommended MBSS once transitioned back to nasal cannula prior to diet advancement. Current Diet Ordered: NPO Dentition: Natural Teeth and Missing Teeth Mental Status: WNL Respiratory Status: Oxygenating on 4L/M nasal cannula (15L via high flow na hilda cannula) Penetration-Aspiration Scale Penetration-Aspiration Scale: OBJECTIVE ASSESSMENT OF SWALLOW FUNCTION (QUANTITATIVE ? PER TRIAL): PENETRATION / ASPIRATION SCALE (DANIEL): 1 = does not enter airway 2 = enters airway/above vocal folds/ejected 3 = enters airway/above vocal folds/not ejected 4 = enters airway/contacts vocal folds/ejected 5 = enters airway/contacts vocal folds/not ejected 6 = enters airway/below vocal folds/ejected 7 = enters airway/below vocal folds/not ejected despite effort 8 = enters airway/below vocal folds/no effort VIDEOFLOROSCOPIC SCALE SCORE (DANIEL): Grade I = aspiration of material that has penetrated into the laryngeal vestibule, intact cough reflex Grade II = aspiration < 10 % of the bolus, intact cough reflex Grade III = aspiration of < 10 % of the bolus, reduced cough reflex or aspiration of > 10 % of the bolus, intact cough reflex Grade IV = aspiration of > 10 % of the bolus, reduced cough reflex Penetration-Aspiration Scale Score Thin Liquid via teaspoon: Result: 1= does not enter airway Thin Liquid via teaspoon Trial 2: Result: 1= does not enter airway Thin Liquid via small single sip: cup: Result: 2= enter airway/above vocal folds/ejected Thin Liquid via single sip: straw: Result: 8= enters airway/below vocal folds/no effort [place] Thick Liquid via small single sip: cup: Result: 3= enters airways/above vocal folds/not ejected Pudding via teaspoon: Result: 1= does not enter airway Comment: Esophageal screen - Retention in the middle and lower esophagus w/ retrograde flow. Thin Liquid via small single sip: cup Trial 2: Result: 8= enters airway/below vocal folds/no effort Comment: Esophageal screen - Mild barium retention in lower esophagus after liquid wash. 1/2 Cookie: Result: 1= does not enter airway Comment: Esophageal screen - Mild retention in lower esophagus. Thin Liquid via teaspoon Trial 3: Result: 5= enters airways/contacts vocal folds/not ejected (trace) Thin Liquid via teaspoon Trial 4: Result: 1= does not enter airway [place] Thick Liquid via large single sip: cup: Result: 5= enters airways/contacts vocal folds/not ejected Thin Liquid via small single sip: cup Chin tuck: Result: 8= enters airway/below vocal folds/no effort Thin Liquid via small single sip: cup Effortful swallow: Result: 8= enters airway/below vocal folds/no effort Oral Phase Labial Seal: Escape beyond mid-chin Tongue Control During Bolus Hold: Posterior escape of greater than half of bolus Bolus Preparation/Mastication: Disorganized chewing/mashing with solid pieces of bolus unchewed (Bolus fully chewed, but loss of cookie to the pyriforms prior to swallow onset) Bolus Transport/Lingual Motion: Slowed tongue motion Oral Residue: Residue collection on oral structures Pharyngeal Phase Initiation of Pharyngeal Swallow: Bolus head in pyriforms Soft Palate Elevation: Trace column of contrast/air between soft palate and pharyngeal wall Laryngeal Elevation: Partial superior movement thyroid cart/partial apprx aryt- epig petiole Anterior Hyoid Excursion: Partial anterior movement Epiglottic Movement: Complete inversion Laryngeal Vestibule Closure at Height of Swallow: Incomplete; narrow column of air/contrast in laryngeal vestibule Pharyngeal Stripping Wave: Present - complete Pharyngoesophageal Segment Opening: Complete distension and complete duration; no obstruction of flow Tongue Base Retraction: Narrow column of contrast between tongue base & post. pharyngeal wall Pharyngeal Residue: Collection of residue within or on pharyngeal structures Esophageal Phase Esophageal Clearance: Esophageal retention w/ retrograde flow below pharyngoesophageal seg. Diagnosis/Impression Diagnosis: Moderate oropharyngeal dysphagia R13.12 Impression: The oral phase is primarily marked by... -Posterior loss of >1/2 of thin liquid boluses and cookie to the pyriforms prior to swallow onset. -Slowed tongue motion for A-P transport. -Slowed, but complete mastication of cookie. The pharyngeal phase is primarily marked by... -Delayed swallow onset. -Decreased airway closure during the swallow due to decreased anterior hyoid excursion and laryngeal elevation w/ SILENT aspiration of thin liquids via straw, via cup, and via cup w/ chin tuck and effortful swallow. Cued cough was somewhat effective in clearing contrast from laryngeal vestibule after the swallow. -Mildly decrease TB retraction w/ overall good pharyngeal motility. The esophageal phase is primarily marked by... -Retention of pudding in middle and lower esophagus w/ retrograde flow, which mostly cleared w/ liquid wash. -Mild retention of cookie in lower esophagus. Recommendations Diet: Mechanical Soft Textures (Soft and Bite Size Textures - IDDSI Level 6) and Thin Liquids Comment: SpO2 in the 90s for meals Cue intermittent cough and re-swallow Compensatory Strategies: Small Bites, Liquid by Teaspoon Only, Slow Rate, Alternate bites/solids and sips/liquids and Sitting upright (during and 60min after meals) Supervision: 1:1 Direct Supervision (For all food and drink) Recommend Repeat Modified Barium Swallow: Yes (1-3 weeks after implementation of oropharyngeal exercise program) Need for Skilled Speech Therapy Services: Yes Comment: -Train the patient in use of strategies to decrease risk for aspiration and reflux aspiration. -Ongoing assessment of diet tolerance of recommended textures. -Train the patient in oropharyngeal exercise program (lingual resistance, Donna, CTAR). Recommended Referrals: GI Consult (Outpatient. If worsening s/s of reflux or increased sensation of esophageal retention despite use of alternating bites/sips 1:1, would consider inpt GI.) Education Completed: 1. Described result of evaluation. and 2. Pt understands evaluation & agrees with goals and treatment plan. Status Active ST Patient: Active Contact Information [facility] Speech Therapy:: Nadeen Quinn M.A. CCC-KILN PULLER? Speech-Language Pathologist?? [facility] [address] [place] [address]? [email or web address]?? [phone]
[2024-06-16] MEDS: Potassium Chloride Oral Tablet 20 MEQ PO ×2 (11:28→17:48)
[2024-06-16] MEDS: Acyclovir 200 MG Capsule 400 MG PO ×2 (11:28→21:59)
[2024-06-16] MEDS: Menthol/Lanolin/Calamine/Znox 113 GM Tube 1 APPLIC TOPICAL ×2 (11:28→21:52)
[2024-06-16] MEDS: Na Biphos/Potassium Phosphate PACKET 1 PACKET PO ×2 (13:20→21:59)
--- NOTE | 2024-06-16 13:30 | PCM.OPRPT ---
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 Hands were sanitized. The patient was positioned supine with right arm at 90 degrees. The patient's upper arm vasculature was assessed using ultrasound, and the right brachial vein was externally marked. An external measurement was obtained of 13 cm. Cap, mask, and prep gloves were donned. The underdrape was placed under the patient's arm. The site was prepped with chlorhexidine, and tourniquet was loosely applied. Prep gloves were discarded, and hands were sanitized. The sterile kit was opened with additional supplies dropped in. Sterile gown and gloves were donned, and the patient was draped. The sterile kit was assembled with all needle, introducer, connector, and catheter flushed with sterile normal saline. The marked site of insertion was anesthetized with 1% lidocaine. Patient tolerated well. The right brachial vein was then accessed using ultrasound guidance and guidewire was inserted to safety paras. The tourniquet was released. The access needle was removed while securing the guidewire in place. The site was again anesthetized with 1% lidocaine, prior to insertion of introducer sheath and dilator. Patient tolerated well. The catheter was trimmed to a length of 13 cm, and again flushed with sterile normal saline. The catheter was then inserted through the introducer sheath, slowly. There was no resistance on insertion. The introducer sheath was retracted and peeled away, incrementally, while keeping the catheter secured. The catheter was fully inserted leaving 0 cm external. Blood return was verified and flushed needless connector was attached. The midline was flushed with sterile normal saline in a pulsatile fashion and clamped. Total sterile flushes used for the insertion was to 10 ml syringes, one from the kit. Finally, the insertion site was cleaned with chlorhexidine, and the catheter was secured using a StatLock. The site was covered with a Tegaderm CHG Dressing. Baseline arm circumference was obtained at the insertion site and measured 28 cm. The site continued to ooze, seeping through the CHG dressing. Consequently, pressure was applied at the site of catheter insertion and the CHG dressing was changed. The primary nurse aware that the midline is ready for use, and to reassess for oozing. REF: [id number] LOT: [id number] Surgical Findings: SUCCESSFUL MIDLINE INSERTION Complications Complications: No
[2024-06-16 14:12] LABS: Pathologist Review Reviewed
--- NOTE | 2024-06-16 14:36 | PCM.PN.ID ---
Physical Exam Narrative Breathing better, some sputum, no fever Const alert and no apparent distress General Appearance: cooperative Resp Auscultation: wheezes and diminished lung sounds Cardio regular rate and regular rhythm GI soft to palpation, non-tender and non-distended Extremity General Extremity: Negative for edema Skin no rashes or lesions noted ID ID: Route of nutrition/ use of supplements: [] Nutritional Intake: [] IV Site: [] Bernard Catheter: [] Assessment & Plan Assessment/Plan (1) Sepsis: PLAN: Concern for pneumonia in immunosuppressed patient. Feeling a little better today. On zosyn, will stop vanc. Will follow d/w Dr. Esposito (2) COVID: (3) Acute kidney injury: (4) Hypoxic respiratory failure:
--- NOTE | 2024-06-16 14:40 | CASEMGMT ---
SW met with patient. Introduced self and role at [facility]. SW mentioned SNF list. SW saw list on window ledge and brought it to patient. Patient asked SW to read off the [facility] facilities. SW read the [facility] facilities. Patient said he does not know and asked why he has to go somewhere. SW told patient he is not even able to stand up on his own let alone walk to the bathroom and take care of hygiene after bathroom, meals etc. Patient said he thinks he has this taken care of. SW asked patient if he would like SW to call his son. Patient told SW he will talk to his son about a plan. SW will check back with patient. Shanna CASTELLANO
[2024-06-16] MEDS: HEPARIN/D5w 25,000 UNITS 25,000 UNITS/250 ML IV.SOLN. 13 UNITS CONT INF (14:42)
[2024-06-16 15:47] LABS: Partial Thromboplast Time 65.9 Seconds (24.1-36.2)
--- NOTE | 2024-06-16 18:28 | NURSING ---
Reviewed and agreed on charting with Princess Gonzales RN
[2024-06-16] MEDS: Ipratropium/Albuterol Sulfate 3 ML AMPUL.NEB INHALATION (19:46)
[2024-06-16] MEDS: Budesonide Respules 0.5 MG/2 ML AMPUL.NEB. INHALATION (19:46)
[2024-06-16 21:27] LABS: Partial Thromboplast Time 73.4 Seconds (24.1-36.2)
[2024-06-17] VITALS (15 sets, daily range): BP systolic 104–122; BP diastolic 49–66; PULSE 90–110; RESP 15–20; TEMP 36.3–36.7; O2SAT 90–98
[2024-06-17 04:07] LABS: Haptoglobin 446 mg/dL (34-355)
[2024-06-17] MEDS: Piperacil/Tazobactam 3.375 GM in 0.9% Normal Saline (50mL MB+) 50 ML IV ×3 (05:22→20:57)
[2024-06-17] MEDS: Na Biphos/Potassium Phosphate PACKET 1 PACKET PO ×3 (06:10→20:56)
[2024-06-17 06:45] LABS: Absolute Lymphocyte Count 0.42 X10^3/uL (0.83-4.51); Absolute Neutrophil Count 5.8 X10^3/uL (2.0-7.7); Basophil# 0.03 X10^3/uL; Basophil% 0.5 % (0-1); Eosinophil# 0.01 X10^3/uL; Eosinophils% 0.2 % (0-5); Hematocrit 30.7 % (40-54); Hemoglobin 10.3 g/dL (13.0-16.5); Lymphocyte # 0.42 X10^3/ul (0.83-4.51); Lymphocyte % 6.3 % (19-41); Mean Corp Hgb Conc 33.6 g/dL (32-36); Mean Corpuscular Hgb 32.7 pg (27.0-32.0); Mean Corpuscular Volume 97.5 fL (80-94); Monocyte# 0.36 X10^3/uL; Monocyte% 5.4 % (0-10); NRBC Flagged by Analyzer 0.3 % (0-5); Neutrophil # 5.76 X10^3/uL (2.7-7.7); Neutrophil % 86.5 % (47-70); POSITIVE COUNT YES; POSITIVE DIFFERENTIAL YES; RBC Distribution Width CV 13.5 % (11.6-14.6); RBC Distribution Width SD 47.9 fl (35.1-43.9); Red Blood Count 3.15 M/mm3 (4.6-6.2); White Blood Count 6.7 K/mm3 (4.4-11.0)
[2024-06-17 06:55] LABS: Partial Thromboplast Time 69.4 Seconds (24.1-36.2)
[2024-06-17 07:01] LABS: Differential Indicated SCAN CRITERIA MET; Platelet Count 47 K/mm3 (150-450)
[2024-06-17] MEDS: Budesonide Respules 0.5 MG/2 ML AMPUL.NEB. INHALATION ×2 (07:15→19:46)
[2024-06-17] MEDS: Ipratropium/Albuterol Sulfate 3 ML AMPUL.NEB INHALATION ×4 (07:15→19:47)
[2024-06-17 07:28] LABS: Platelet Estimate MKD DEC (ADEQ)
[2024-06-17 07:37] LABS: ALB/GLOB Ratio 0.5 RATIO (0.9-2.4); AST(SGOT) 29 U/L (15-37); Alanine Aminotransfer ALT/SGPT 62 U/L (16-61); Albumin, Serum 1.9 g/dL (3.2-5.0); Alkaline Phosphatase 142 U/L (45-117); Anion Gap 7 (5-15); BUN 26 mg/dL (7-18); BUN/Creat Ratio 24.5 RATIO (10-20); Calcium,Total 7.3 mg/dL (8.5-10.1); Chloride 104 mmol/L (98-107); Creatinine, Serum 1.06 mg/dL (0.70-1.30); EST Glomerular Filtration Rate 72 mL/min (>60); Est Glom Filt Rate - Afr Amer 88 mL/min (>60); Estimated Creatinine Clearance 69.37 ml/min; Globulin 3.5 g/dL (2.2-4.2); Glucose 198 mg/dL (74-106); Potassium 3.5 mmol/L (3.5-5.1); Protein, Total 5.4 g/dL (6.4-8.2); Sodium Level 139 mmol/L (136-145)
[2024-06-17 08:22] LABS: Magnesium 2.1 mg/dL (1.6-2.6); Phosphorus 2.4 mg/dL (2.5-4.9)
[2024-06-17] MEDS: Acyclovir 200 MG Capsule 400 MG PO ×2 (08:55→20:57)
[2024-06-17] MEDS: Potassium Chloride Oral Tablet 20 MEQ PO ×2 (08:55→16:05)
[2024-06-17] MEDS: 0.9% Saline Lock 10 ML Syringe IV ×2 (08:56→13:16)
[2024-06-17] MEDS: Protamine Sulfate 50 MG/5 ML Vial 22.75 MG IV (08:56)
[2024-06-17] MEDS: Menthol/Lanolin/Calamine/Znox 113 GM Tube 1 APPLIC TOPICAL ×2 (09:09→20:56)
[2024-06-17] MEDS: 0.9% Normal Saline (100mL Bag) 100 ML 15 ML IV (13:16)
--- NOTE | 2024-06-17 16:24 | PN.HOSP_ITS ---
Reason for Visit Reason for Visit: Diagnoses Sepsis, unspecified organism (06/09/24) Dehydration (06/09/24) Hypo-osmolality and hyponatremia (06/09/24) Other pulmonary embolism without acute cor pulmonale (06/09/24) Respiratory failure, unspecified with hypoxia (06/09/24) Acute kidney failure, unspecified (06/09/24) Diarrhea, unspecified (06/09/24) Weakness (06/09/24) COVID-19 (06/09/24) Objective Data Objective Data Vital Signs: Vital Signs Temp Pulse Resp BP Pulse Ox O2 Del Method O2 Flow Rate 97.7 F L 97 18 114/53 L 93 High Flow 8 06/17/24 16:01 06/17/24 16:01 06/17/24 16:01 06/17/24 16:01 06/17/24 16:01 06/17/24 16:01 06/17/24 12:02 FiO2 55 06/15/24 16:19 Oxygen Flow Rate (L/min) 8 Oxygen Delivery Method High Flow Weight: 223 lb 8.78 oz Body Mass Index (BMI) 34.9 Intake & Output: Intake and Output for Last 24 Hours 06/15/24 06/16/24 06/17/24 23:59 23:59 23:59 Intake Total 2730 / 2730 956.0 / 956.0 628.40 / 628.40 Output Total 1800 / 1800 1200 / 1200 700 / 700 Balance 930 / 930 -244.0 / -244.0 -71.60 / -71.60 Lab / Micro Data 06/17/24 06:29 06/17/24 06:29 Labs: Laboratory Results - last 24 hr 06/16/24 09:10: Haptoglobin 446 H 06/16/24 21:06: APTT 73.4 H 06/17/24 06:29: WBC 6.7, RBC 3.15 L, Hgb 10.3 L, Hct 30.7 L, MCV 97.5 H, MCH 32.7 H, MCHC 33.6, RDW Std Deviation 47.9 H, RDW Coeff of Chetan 13.5, Plt Count 47 L*, MPV TNP, Immature Gran % (Auto) 1.100 H, Neut % (Auto) 86.5 H, Lymph % (Auto) 6.3 L, Millard % (Auto) 5.4, Eos % (Auto) 0.2, Baso % (Auto) 0.5, Absolute Neuts (auto) 5.8, Absolute Lymphs (auto) 0.42 L, Nucleated RBC % 0.3, Diff Path Review May foll, Platelet Estimate MKD DEC, APTT 69.4 H, Sodium 139, Potassium 3.5, Chloride 104, Carbon Dioxide 28.0, Anion Gap 7, BUN 26 H, Creatinine 1.06, Estim Creat Clear Calc 69.37, Est GFR (MDRD) Af Amer 88, Est GFR (MDRD) Non-Af 72, BUN/Creatinine Ratio 24.5 H, Glucose 198 H, Calcium 7.3 L, Phosphorus 2.4 L, Magnesium 2.1, Total Bilirubin 0.60, AST 29, ALT 62 H, Alkaline Phosphatase 142 H, Total Protein 5.4 L, Albumin 1.9 L, Globulin 3.5, Albumin/Globulin Ratio 0.5 L Micro: Microbiology 06/15/24 10:20 Blood Culture (Wb) - Right Hand Blood Culture - Preliminary No growth in 48 hours. 06/15/24 10:18 Blood Culture (Wb) - Anticubital Right Blood Culture - Preliminary No growth in 48 hours. 06/15/24 12:45 Urine Catheter - Bernard Urine Culture - Preliminary Klebsiella pneumoniae sp pneum GPC Poss Enterococcus sp 06/15/24 12:34 Nasal Secretion MRSA (PCR) - Final 06/15/24 10:10 Mucosa - Nasopharyngeal Respiratory Panel (PCR) - Final 06/15/24 12:45 Urine Catheter - Bernard Legionella Antigen - Final 06/15/24 12:45 Urine Catheter - Bernard Streptococcus pneumoniae Antigen (M - Final 06/09/24 19:45 Blood Culture (Wb) - Anticubital Left Blood Culture - Final No growth in 5 days. 06/09/24 20:08 Blood Culture (Wb) - Anticubital Left Blood Culture - Final No growth in 5 days. 06/09/24 20:05 Urine, Catheterized Urine Culture - Final Enterococcus faecalis 06/10/24 09:15 Stool Clostridioides difficile (PCR) - Final 06/09/24 19:48 Mucosa - Nose SARS-CoV-2, Influenza & RSV (PCR) - Final SARS-CoV-2 (COVID 19 PCR) Physical Exam Narrative Seen and examined. Patient's RN called me about CNM that he is bleeding from the right arm PICC access. IV heparin drip stopped. Patient actively bleeding, dressing removed and pressure applied. Patient also has clotted blood on the left elbow and arm which had subcutaneous ecchymosis and bruise last 2 to 3 days. Shortness of breath and hypoxia similar to yesterday. Blood pressure 140/53. On 8 L of high flow oxygen. Patient has bilateral legs and arms swelling. Physical exam General: Alert, Oriented x3, Cooperative. BMI 35.0 kg/m? HEENT: Atraumatic, PERRLA, EOMI, Normocephalic Oral: Oral mucosa moist no Gingival or Mucosal Lesions/ Ulcerations Neck: Supple, No JVD, Negative Carotid Bruits Chest wall/Lungs: Air entry diminished in bilateral lungs. Mild R>L coarse crepitation better. Hypoxia Cardiovascular: Regular rate, Regular Rhythm, Normal S1, Normal S2, No M/G/R. Abdomen: Bowel Sounds Present, Soft, Non Tender, Non-Distended : Bernard catheter. Dark-colored urine. No renal angle tenderness. No suprapubic tenderness. Extremities: Bilateral upper and lower arms edema better., Capillary Refill Less than 3 Seconds Skin: Subcutaneous blackish discoloration of left elbow and arm seems clotted blood. Overlying skin is black. Right arm PICC line bleeding, pressure applied. Bleeding controlled. Musculoskeletal: No Tenderness to Palpation of Joints or Extremities Neurological: Cranial nerves II-XII grossly intact, DTR 2+/4. No acute focal neurological deficit. Psych/Mental Status: Flat affect. Assessment & Plan Assessment/Plan (1) COVID: (2) Generalized weakness: (3) Diarrhea: (4) Acute kidney injury: (5) Acute hyponatremia: (6) Dehydration: PLAN: Plan Patient is a 73-year-old gentleman with history of multiple myeloma who was diagnosed with COVID a week prior to his admission presented with progressive generalized weakness 1. Most likely sepsis from secondary bacterial pneumonia in immunocompromised/low BP from diuretic: During the hospital course, the patient probably developed sepsis with clinical indicators of tachycardia, tachypnea and severe hypoxia due to pneumonia probably bacterial secondary infection on COVID-19 with acute sepsis-related organ dysfunction as evidenced by acute hypoxic respiratory failure requiring Airvo, 8 L of oxygen, lactic acidosis and elevated procalcitonin and toxic granulation. Patient had severe thrombocytopenia from before. D-dimer also elevated. Chest x-ray shows right upper and bilateral lower lobes infiltrate. CTA chest ordered but patient was hemodynamically unstable therefore he will until he gets more stable. Discussed with folding machine operator/layer out plate glass and wanted to give 2 L bolus to stabilize the blood pressure. If patient gets fluid refractory hypotension requiring vasopressors and then will be transferred to ICU. Patient is also immunosuppressed with history of multiple myeloma on Revlimid and history of colon cancer status post colon resection. ID was consulted. Recommended to add vancomycin. Zosyn was started yesterday. Respiratory panel, urinary antigens and MRSA nasal screen negative. Blood culture pending 06/16: Urinary antigens are negative. MRSA PCR negative. Blood culture pending. Respiratory panel negative. Discussed with the ID. Vancomycin patient also has swallowing difficulty and risk for aspiration therefore going for cookie swallow test. 06/16: RUL and RLL lobar and segmental branches PE: CTPA was initially difficult yesterday shows above findings. Right lower lobe also has infiltrate and atelectasis. BNP normal. 2D echo reported normal right ventricle, EF 60% normal LV size. Technically difficult study with limited images. Patient was discussed with Dr. Kelechi Roberts yesterday and today. Continue IV heparin drip as patient has thrombocytopenia, did not show significant drop compared to yesterday. Midline ordered. Yesterday, workup for hypercoagulable disorder including antiphospholipid antibodies were ordered. Reticulocyte panel shows immature 12.8% high. INR 1.2. LDH 320. Fibrinogen 683 high, acute phase reactant. Antiphospholipid antibodies are pending. Transaminases improved. ALP 150. Vascular surgery was consulted for opinion regarding IVC filter but patient refused. 06/17: Continue antibiotic Active bleeding/adverse effect of IV heparin due to baseline chronic thrombocytopenia and anemia from multiple myeloma: Acute care was given with respect to hemostasis, pressure application for at PICC line after discontinuation of IV heparin drip. Discussed with the pharmacist and protamine IV reversal agent was given. Hemostasis achieved. I called Dr. Pradeep Suárez, vascular surgeon and evaluated the patient and thinks the left elbow and arm has clotted hematoma but the skin does not seem necrotic but has high risk of getting skin necrosis. If he gets his skin necrosis, will need wound care and further care. Furthermore, patient's oncologist Dr. Kelechi Roberts was called and he agreed with our treatment. Patient not candidate for anticoagulation. He again refused for IVC filter. He does not want to sign consent form. 2.. Acute kidney injury ? Admitted to a monitored bed patient started on IV hydration with subsequent monitoring of electrolyte ? Patient acute kidney injury resolved. 06/12: LUKE resolved. 06/16: Mild hypokalemia with K3.4. Creatinine normal. Hypovolemic hyponatremia ? Secondary to dehydration patient is on IV fluid with subsequent monitoring of electrolyte 06/13:? Patient hyponatremia resolved. Serum sodium level 137. Patient has bilateral leg swelling., Yesterday, he refused for venous duplex. He complained of the leg pain and leg swelling. On IV Lasix, the dose increased. 06/14: Generalized legs and arms edema is better on Lasix 40 IV twice daily 06/15: Patient might have low BP from Lasix. His baseline is also around 110s. Lasix was discontinued. Venous duplex was limited yesterday due to patient intolerance but right lower extremity veins did not show evidence of DVT 3. Recent COVID 19 infection ? did continue with symptom management 06/13: Discontinue the COVID isolation. Patient got the symptoms of COVID including cough generalized weakness around Booker time and New Year's Madeleine. 4. Diarrhea ? CT of the abdomen did show depressed colon with air-fluid levels plan is to treat symptomatically 06/12: No BM today. 06/13: Diarrhea has resolved. 5. Hypokalemia -Corrected per protocol 06/14: Patient also had hypophosphatemia therefore on Neutra-Phos. 6. Bilateral lower lobe patchy consolidative airspace disease questionable pneumonia. ? Given patient immunosuppressive state patient was started on antibiotic therapy 7. Multiple myeloma ? Patient is on Revlimid and follows with Dr. Roberts as outpatient 8. COPD ? Currently not in exacerbation aerosol treatment as needed 9. Class II obesity with BMI of 35 kg/m? ? Complicating care weight loss advised 06/12: Patient requires 3 people assist for standing or ambulate. 10. Physical deconditioning ? Requested for PT OT eval and social sciences chair to assist with discharge planning 11. Nonspecific nodule measuring 1 cm in the left adrenal gland -Plan is for patient to undergo subsequent outpatient evaluation with either non-contrast adrenal CT or chemical-shift adrenal MRI follow-up study. 12. DVT prophylaxis ?06/12: Platelet count 62K. Has chronic thrombocytopenia, B12 61 - 78,000. 100 55K on admission. Heparin subcu has been discontinued since. I talked to the patient's son on the phone who is POA. Clinical Impression(s) from Imaging Studies CTPA 06/15/2024 Right pulmonary embolism. No arterial dissection. Bibasilar consolidations, right more than left. Chest X-Ray 06/09/24 20:05 IMPRESSION: Patchy bibasilar pulmonary opacities may be atelectasis, scarring, or perhaps pneumonia. Electronically Signed: Rai Agrawal, at 20:22 EST , Abdomen/Pelvis CT 06/09/24 21:28 IMPRESSION: 1. Postoperative changes in the interval wall with associated hernia repair. Low-attenuation collection in the anterior abdominal wall measures up to 1.2 cm in thickness and may be seroma or chronic hematoma. 2. Patchy consolidative airspace disease in the visualized lower lobes may be pneumonia. 3. Nonspecific nodule measuring 1 cm in the left adrenal gland. ACR White Paper guidelines (Renata et al. JACR 2017; 14(8):8430-4160) recommend a low dose, non-contrast adrenal CT or chemical-shift adrenal MRI follow-up study. 4. Colorectal anastomosis identified. 5. The colon is mostly decompressed with air fluid levels identified. No small bowel obstruction. This would correlate with a diarrheal illness. No focal or diffuse inflammatory change. Electronically Signed: Rai Dengflo, at 22:38 EST , Venous Doppler Study 06/12/24 10:56 Interpretation Summary Deep veins of the right lower extremity are patent and compressible segmentally. There is no evidence of right lower extremity deep vein thrombosis. Limited study due to patient intolerance Ordering Physician: Manjit Esposito Performed By: Yana Elam, SAJI, RVT Chest X-Ray 06/14/24 19:20 IMPRESSION: Right upper and bilateral lower lobe infiltrate. Electronically Signed: Jj Nesbitt MD at 19:56 EST , Charges/Coding Visit Charges Inpatient E&M: 00160 Subs Hosp L2
[2024-06-17] MEDS: Pantoprazole Sodium 40 MG Tablet PO (17:09)
[2024-06-17 20:39] LABS: Hematocrit 27.1 % (40-54); Hemoglobin 9.1 g/dL (13.0-16.5); POSITIVE COUNT YES
[2024-06-18] VITALS (7 sets, daily range): BP systolic 104–124; BP diastolic 49–67; PULSE 95–113; RESP 15–19; TEMP 36–36.7; O2SAT 95–99
[2024-06-18] MEDS: Piperacil/Tazobactam 3.375 GM in 0.9% Normal Saline (50mL MB+) 50 ML IV ×3 (05:43→21:01)
[2024-06-18] MEDS: Na Biphos/Potassium Phosphate PACKET 1 PACKET PO ×3 (05:44→21:02)
[2024-06-18] MEDS: 0.9% Saline Lock 10 ML Syringe IV ×2 (05:45→10:05)
[2024-06-18 06:01] LABS: Absolute Lymphocyte Count 0.49 X10^3/uL (0.83-4.51); Absolute Neutrophil Count 4.7 X10^3/uL (2.0-7.7); Basophil# 0.02 X10^3/uL; Basophil% 0.3 % (0-1); Eosinophil# 0.14 X10^3/uL; Eosinophils% 2.4 % (0-5); Hematocrit 25.9 % (40-54); Hemoglobin 8.8 g/dL (13.0-16.5); Lymphocyte # 0.49 X10^3/ul (0.83-4.51); Lymphocyte % 8.5 % (19-41); Mean Corpuscular Hgb 33.5 pg (27.0-32.0); Mean Corpuscular Volume 98.5 fL (80-94); Mean Platelet Vol. 12.8 fl (6.2-12.0); Monocyte# 0.34 X10^3/uL; Monocyte% 5.9 % (0-10); NRBC Flagged by Analyzer 0 % (0-5); Neutrophil # 4.69 X10^3/uL (2.7-7.7); Neutrophil % 81.9 % (47-70); POSITIVE COUNT YES; POSITIVE DIFFERENTIAL YES; RBC Distribution Width CV 13.7 % (11.6-14.6); Red Blood Count 2.63 M/mm3 (4.6-6.2); White Blood Count 5.7 K/mm3 (4.4-11.0)
[2024-06-18 06:02] LABS: Differential Indicated SCAN CRITERIA MET; Platelet Count 40 K/mm3 (150-450)
[2024-06-18 06:16] LABS: Partial Thromboplast Time 30.3 Seconds (24.1-36.2)
[2024-06-18 06:33] LABS: Differential Comment SCANNED; Platelet Estimate MKD DEC (ADEQ)
[2024-06-18 06:58] LABS: Anion Gap 6 (5-15); BUN 26 mg/dL (7-18); BUN/Creat Ratio 23.6 RATIO (10-20); Calcium,Total 7.7 mg/dL (8.5-10.1); Chloride 106 mmol/L (98-107); EST Glomerular Filtration Rate 69 mL/min (>60); Est Glom Filt Rate - Afr Amer 84 mL/min (>60); Estimated Creatinine Clearance 66.85 ml/min; Glucose 210 mg/dL (74-106); Sodium Level 142 mmol/L (136-145)
[2024-06-18] MEDS: Ipratropium/Albuterol Sulfate 3 ML AMPUL.NEB INHALATION (07:01)
[2024-06-18] MEDS: Budesonide Respules 0.5 MG/2 ML AMPUL.NEB. INHALATION (07:01)
[2024-06-18] MEDS: Pantoprazole Sodium 40 MG Tablet PO (09:17)
[2024-06-18] MEDS: Potassium Chloride Oral Tablet 20 MEQ PO ×2 (09:17→17:39)
[2024-06-18] MEDS: Acyclovir 200 MG Capsule 400 MG PO ×2 (09:17→21:02)
[2024-06-18] MEDS: Menthol/Lanolin/Calamine/Znox 113 GM Tube 1 APPLIC TOPICAL ×2 (09:18→21:02)
[2024-06-18] MEDS: Furosemide 40 MG/4 ML Vial IV (10:05)
--- NOTE | 2024-06-18 11:58 | PN.HOSP_ITS ---
Reason for Visit Reason for Visit: Diagnoses Sepsis, unspecified organism (06/09/24) Dehydration (06/09/24) Hypo-osmolality and hyponatremia (06/09/24) Other pulmonary embolism without acute cor pulmonale (06/09/24) Respiratory failure, unspecified with hypoxia (06/09/24) Acute kidney failure, unspecified (06/09/24) Diarrhea, unspecified (06/09/24) Weakness (06/09/24) COVID-19 (06/09/24) Objective Data Objective Data Vital Signs: Vital Signs Temp Pulse Resp BP Pulse Ox O2 Del Method O2 Flow Rate 97.7 F L 113 H 19 H 104/57 L 96 High Flow 5 06/18/24 10:00 06/18/24 10:00 06/18/24 10:00 06/18/24 10:00 06/18/24 10:00 06/18/24 10:00 06/18/24 10:00 FiO2 55 06/15/24 16:19 Oxygen Flow Rate (L/min) 5 Oxygen Delivery Method High Flow Weight: 223 lb 8.78 oz Body Mass Index (BMI) 34.9 Intake & Output: Intake and Output for Last 24 Hours 06/16/24 06/17/24 06/18/24 23:59 23:59 23:59 Intake Total 956.0 / 956.0 960.90 / 1060.90 300 / 300 Output Total 1200 / 1200 850 / 1200 600 / 600 Balance -244.0 / -244.0 110.90 / -139.10 -300 / -300 Lab / Micro Data 06/18/24 05:35 06/18/24 05:35 Labs: Laboratory Results - last 24 hr 06/17/24 20:20: Hgb 9.1 L, Hct 27.1 L 06/18/24 05:35: WBC 5.7, RBC 2.63 L, Hgb 8.8 L, Hct 25.9 L, MCV 98.5 H, MCH 33.5 H, MCHC 34.0, RDW Std Deviation 49.0 H, RDW Coeff of Chetan 13.7, Plt Count 40 L*, MPV 12.8 H, Immature Gran % (Auto) 1.000 H, Neut % (Auto) 81.9 H, Lymph % (Auto) 8.5 L, Tompkins % (Auto) 5.9, Eos % (Auto) 2.4, Baso % (Auto) 0.3, Absolute Neuts (auto) 4.7, Absolute Lymphs (auto) 0.49 L, Nucleated RBC % 0, Differential Comment SCANNED, Diff Path Review May foll, Platelet Estimate MKD DEC, APTT 30.3, Sodium 142, Potassium 4.0, Chloride 106, Carbon Dioxide 30.0, Anion Gap 6, BUN 26 H, Creatinine 1.10, Estim Creat Clear Calc 66.85, Est GFR (MDRD) Af Amer 84, Est GFR (MDRD) Non-Af 69, BUN/Creatinine Ratio 23.6 H, Glucose 210 H, C alcium 7.7 L Micro: Microbiology 06/15/24 12:45 Urine Catheter - Bernard Urine Culture - Final Klebsiella pneumoniae sp pneum Enterococcus faecalis 06/15/24 10:20 Blood Culture (Wb) - Right Hand Blood Culture - Preliminary No growth in 48 hours. 06/15/24 10:18 Blood Culture (Wb) - Anticubital Right Blood Culture - Preliminary No growth in 48 hours. 06/15/24 12:34 Nasal Secretion MRSA (PCR) - Final 06/15/24 10:10 Mucosa - Nasopharyngeal Respiratory Panel (PCR) - Final 06/15/24 12:45 Urine Catheter - Bernard Legionella Antigen - Final 06/15/24 12:45 Urine Catheter - Bernard Streptococcus pneumoniae Antigen (M - Final 06/09/24 19:45 Blood Culture (Wb) - Anticubital Left Blood Culture - Final No growth in 5 days. 06/09/24 20:08 Blood Culture (Wb) - Anticubital Left Blood Culture - Final No growth in 5 days. 06/09/24 20:05 Urine, Catheterized Urine Culture - Final Enterococcus faecalis 06/10/24 09:15 Stool Clostridioides difficile (PCR) - Final 06/09/24 19:48 Mucosa - Nose SARS-CoV-2, Influenza & RSV (PCR) - Final SARS-CoV-2 (COVID 19 PCR) Physical Exam Narrative Seen and examined. No further bleeding from the PICC line after the 06/17/2024 morning incident. Patient history of shortness of breath better. Still swelling of upper extremities and lower extremities. Patient also has clotted blood on the left elbow and arm which had subcutaneous ecchymosis and bruise last 2 to 3 days. Shortness of breath and hypoxia similar to yesterday. Blood pressure 140/53. On 8 L of high flow oxygen. Patient has bilateral legs and arms swelling. Physical exam General: Alert, Oriented x3, Cooperative. BMI 35.0 kg/m? HEENT: Atraumatic, PERRLA, EOMI, Normocephalic Oral: Oral mucosa moist no Gingival or Mucosal Lesions/ Ulcerations Neck: Supple, No JVD, Negative Carotid Bruits Chest wall/Lungs: Air entry diminished in bilateral lungs. Mild R>L coarse crepitation better. Hypoxia Cardiovascular: Regular rate, Regular Rhythm, Normal S1, Normal S2, No M/G/R. Abdomen: Bowel Sounds Present, Soft, Non Tender, Non-Distended : Bernard catheter. Dark-colored urine. No renal angle tenderness. No suprapubic tenderness. Extremities: Bilateral upper and lower arms edema better., Capillary Refill Less than 3 Seconds Skin: Subcutaneous blackish discoloration of left elbow and arm seems clotted blood, overlying skin is black.Seepage of fluid from the right arm. Cushion under both elbows for pressure offloading. No active bleeding. Musculoskeletal: No Tenderness to Palpation of Joints or Extremities Neurological: Cranial nerves II-XII grossly intact, DTR 2+/4. No acute focal neurological deficit. Psych/Mental Status: Flat affect. Assessment & Plan Assessment/Plan (1) COVID: (2) Generalized weakness: (3) Diarrhea: (4) Acute kidney injury: (5) Acute hyponatremia: (6) Dehydration: PLAN: Plan Patient is a 73-year-old gentleman with history of multiple myeloma who was diagnosed with COVID a week prior to his admission presented with progressive generalized weakness 1. Most likely sepsis from secondary bacterial pneumonia in immunocompromised/low BP from diuretic: During the hospital course, the patient probably developed sepsis with clinical indicators of tachycardia, tachypnea and severe hypoxia due to pneumonia probably bacterial secondary infection on COVID-19 with acute sepsis-related organ dysfunction as evidenced by acute hypoxic respiratory failure requiring Airvo, 8 L of oxygen, lactic acidosis and elevated procalcitonin and toxic granulation. Patient had severe thrombocytopenia from before. D-dimer also elevated. Chest x-ray shows right upper and bilateral lower lobes infiltrate. CTA chest ordered but patient was hemodynamically unstable therefore he will until he gets more stable. Discussed with esl professor/community music therapist and wanted to give 2 L bolus to stabilize the blood pressure. If patient gets fluid refractory hypotension requiring vasopressors and then will be transferred to ICU. Patient is also immunosuppressed with history of multiple myeloma on Revlimid and history of colon cancer status post colon resection. ID was consulted. Recommended to add vancomycin. Zosyn was started yesterday. Respiratory panel, urinary antigens and MRSA nasal screen negative. Blood culture pending 06/16: Urinary antigens are negative. MRSA PCR negative. Blood culture pending. Respiratory panel negative. Discussed with the ID. Vancomycin patient also has swallowing difficulty and risk for aspiration therefore going for cookie swallow test. 06/16: RUL and RLL lobar and segmental branches PE: CTPA was initially difficult yesterday shows above findings. Right lower lobe also has infiltrate and atelectasis. BNP normal. 2D echo reported normal right ventricle, EF 60% normal LV size. Technically difficult study with limited images. Patient was discussed with Dr. Kelechi Roberts yesterday and today. Continue IV heparin drip as patient has thrombocytopenia, did not show significant drop compared to yesterday. Midline ordered. Yesterday, workup for hypercoagulable disorder including antiphospholipid antibodies were ordered. Reticulocyte panel shows immature 12.8% high. INR 1.2. LDH 320. Fibrinogen 683 high, acute phase reactant. Antiphospholipid antibodies are pending. Transaminases improved. ALP 150. Vascular surgery was consulted for opinion regarding IVC filter but patient refused. 06/17: Continue antibiotic Active bleeding/adverse effect of IV heparin due to baseline chronic thrombocytopenia and anemia from multiple myeloma: Acute care was given with respect to hemostasis, pressure application for at PICC line after discontinuation of IV heparin drip. Discussed with the pharmacist and protamine IV reversal agent was given. Hemostasis achieved. I called Dr. Pradeep Suárez, vascular surgeon and evaluated the patient and thinks the left elbow and arm has clotted hematoma but the skin does not seem necrotic but has high risk of getting skin necrosis. If he gets his skin necrosis, will need wound care and further care. Furthermore, patient's oncologist Dr. Kelechi Roberts was called and he agreed with our treatment. Patient not candidate for anticoagulation. He again refused for IVC filter. He does not want to sign consent form. 06/18: No further bleeding since yesterday. I talked to the patient's son, Mr. Rickie Handley who came to visit the patient. I talked to him 2-3 times over the phone and went over the my assessment, diagnosis, hospital course, PE, IV heparin drip and bleeding episode. He still does not want IV satiated. Patient stated he follows [facility] PCP and he will see lung doctor there and ask about IVC filter. I told him Dr. Kelechi Roberts suggested and recommended IVC filter and I talked to him but he said he will ask him. 2.. Acute kidney injury ? Admitted to a monitored bed patient started on IV hydration with subsequent monitoring of electrolyte ? Patient acute kidney injury resolved. 06/12: LUKE resolved. 06/16: Mild hypokalemia with K3.4. Creatinine normal. 06/17: Potassium is normal. BUN/creatinine 25/06.1. Hypovolemic hyponatremia ? Secondary to dehydration patient is on IV fluid with subsequent monitoring of electrolyte 06/13:? Patient hyponatremia resolved. Serum sodium level 137. Patient has bilateral leg swelling., Yesterday, he refused for venous duplex. He complained of the leg pain and leg swelling. On IV Lasix, the dose increased. 06/14: Generalized legs and arms edema is better on Lasix 40 IV twice daily 06/15: Patient might have low BP from Lasix. His baseline is also around 110s. Lasix was discontinued. Venous duplex was limited yesterday due to patient intolerance but right lower extremity veins did not show evidence of DVT 3. Recent COVID 19 infection ? did continue with symptom management 06/13: Discontinue the COVID isolation. Patient got the symptoms of COVID including cough generalized weakness around [place] time and New Year's Made[place]. 4. Diarrhea ? CT of the abdomen did show depressed colon with air-fluid levels plan is to treat symptomatically 06/12: No BM today. 06/13: Diarrhea has resolved. 5. Hypokalemia -Corrected per protocol 06/14: Patient also had hypophosphatemia therefore on Neutra-Phos. 6. Bilateral lower lobe patchy consolidative airspace disease questionable pneumonia. ? Given patient immunosuppressive state patient was started on antibiotic therapy 7. Multiple myeloma ? Patient is on Revlimid and follows with Dr. Roberts as outpatient 06/18: Revlimid on hold after discussion with Dr. Kelechi Roberts. 8. COPD ? Currently not in exacerbation aerosol treatment as needed 9. Class II obesity with BMI of 35 kg/m? ? Complicating care weight loss advised 06/12: Patient requires 3 people assist for standing or ambulate. 10. Physical deconditioning ? Requested for PT OT eval and social worker masters to assist with discharge planning 11. Nonspecific nodule measuring 1 cm in the left adrenal gland -Plan is for patient to undergo subsequent outpatient evaluation with either non-contrast adrenal CT or chemical-shift adrenal MRI follow-up study. 12. DVT prophylaxis ?06/12: Platelet count 62K. Has chronic thrombocytopenia, B12 61 - 78,000. 100 55K on admission. Heparin subcu has been discontinued since. Total time of the visit including total time spent in counseling or coordination of care, (more than 50% of the total time, spent in obtaining medical information from nurses and other ancillary care providers ,explaining to the patient about labs, imaging, diagnosis and management of active complex medical conditions), discussion with multiple parts consultant, patient's son, review of labs and imaging is 35 minutes. Clinical Impression(s) from Imaging Studies CTPA 06/15/2024 Right pulmonary embolism. No arterial dissection. Bibasilar consolidations, right more than left. Chest X-Ray 06/09/24 20:05 IMPRESSION: Patchy bibasilar pulmonary opacities may be atelectasis, scarring, or perhaps pneumonia. Electronically Signed: Rai Agrawal DO at 20:22 EST , Abdomen/Pelvis CT 06/09/24 21:28 IMPRESSION: 1. Postoperative changes in the interval wall with associated hernia repair. Low-attenuation collection in the anterior abdominal wall measures up to 1.2 cm in thickness and may be seroma or chronic hematoma. 2. Patchy consolidative airspace disease in the visualized lower lobes may be pneumonia. 3. Nonspecific nodule measuring 1 cm in the left adrenal gland. ACR White Paper guidelines (Renata et al. JACR 2017; 14(8):7435-3933) recommend a low dose, non-contrast adrenal CT or chemical-shift adrenal MRI follow-up study. 4. Colorectal anastomosis identified. 5. The colon is mostly decompressed with air fluid levels identified. No small bowel obstruction. This would correlate with a diarrheal illness. No focal or diffuse inflammatory change. Electronically Signed: Rai Agrawal DO at 22:38 EST , Venous Doppler Study 06/12/24 10:56 Interpretation Summary Deep veins of the right lower extremity are patent and compressible segmentally. There is no evidence of right lower extremity deep vein thrombosis. Limited study due to patient intolerance Ordering Physician: Manjit Esposito Performed By: Yana Elam, THAICS, RVT Chest X-Ray 06/14/24 19:20 IMPRESSION: Right upper and bilateral lower lobe infiltrate. Electronically Signed: Jj Nesbitt MD at 19:56 EST , Charges/Coding Visit Charges Inpatient E&M: 88791 Subs Hosp L3
[2024-06-19] VITALS (10 sets, daily range): BP systolic 97–125; BP diastolic 44–74; PULSE 99–128; RESP 17–26; TEMP 36–36.8; O2SAT 90–100
[2024-06-19] MEDS: Piperacil/Tazobactam 3.375 GM in 0.9% Normal Saline (50mL MB+) 50 ML IV (05:55)
[2024-06-19] MEDS: Na Biphos/Potassium Phosphate PACKET 1 PACKET PO ×3 (05:55→19:47)
[2024-06-19 06:05] LABS: Absolute Lymphocyte Count 0.41 X10^3/uL (0.83-4.51); Absolute Neutrophil Count 2.9 X10^3/uL (2.0-7.7); Basophil# 0.01 X10^3/uL; Basophil% 0.3 % (0-1); Eosinophil# 0.15 X10^3/uL; Eosinophils% 4.1 % (0-5); Hematocrit 27.7 % (40-54); Hemoglobin 9.2 g/dL (13.0-16.5); Lymphocyte # 0.41 X10^3/ul (0.83-4.51); Lymphocyte % 11.1 % (19-41); Mean Corp Hgb Conc 33.2 g/dL (32-36); Mean Corpuscular Hgb 33.3 pg (27.0-32.0); Mean Corpuscular Volume 100.4 fL (80-94); Monocyte# 0.24 X10^3/uL; Monocyte% 6.5 % (0-10); NRBC Flagged by Analyzer 0.5 % (0-5); Neutrophil # 2.87 X10^3/uL (2.7-7.7); Neutrophil % 77.5 % (47-70); POSITIVE DIFFERENTIAL YES; RBC Distribution Width CV 13.9 % (11.6-14.6); RBC Distribution Width SD 50.9 fl (35.1-43.9); Red Blood Count 2.76 M/mm3 (4.6-6.2); White Blood Count 3.7 K/mm3 (4.4-11.0)
[2024-06-19 06:11] LABS: Differential Indicated SCAN CRITERIA MET; Platelet Count 35 K/mm3 (150-450)
[2024-06-19 06:39] LABS: Anion Gap 4 (5-15); BUN 27 mg/dL (7-18); BUN/Creat Ratio 24.3 RATIO (10-20); Chloride 106 mmol/L (98-107); Creatinine, Serum 1.11 mg/dL (0.70-1.30); EST Glomerular Filtration Rate 69 mL/min (>60); Est Glom Filt Rate - Afr Amer 83 mL/min (>60); Estimated Creatinine Clearance 66.25 ml/min; Ferritin 364 ng/mL (26-388); Glucose 144 mg/dL (74-106); Iron 85 ug/dL (65-175); Iron Binding Capacity,Total 190 ug/dL (250-450); PERCENT IRON SATURATION 44.7 % (15.0-55.0); Potassium 3.9 mmol/L (3.5-5.1); Sodium Level 141 mmol/L (136-145)
[2024-06-19 08:16] LABS: Differential Comment SCANNED; Platelet Estimate MKD DEC (ADEQ)
[2024-06-19 08:52] LABS: Pathologist Review Reviewed
[2024-06-19] MEDS: Acyclovir 200 MG Capsule 400 MG PO ×2 (09:24→19:46)
[2024-06-19] MEDS: Potassium Chloride Oral Tablet 20 MEQ PO ×2 (09:24→17:02)
[2024-06-19] MEDS: Menthol/Lanolin/Calamine/Znox 113 GM Tube 1 APPLIC TOPICAL ×2 (09:24→19:47)
[2024-06-19] MEDS: Pantoprazole Sodium 40 MG Tablet PO (09:25)
--- NOTE | 2024-06-19 09:59 | CASEMGMT ---
BETSY met with patient. Patient said he and his son reviewed the list of long term facilities. SW gave patient the list and his glasses per his request. Their first choice is [facility] ([facility]). SW asked for a second and third choice. Patient said he really wants to go to [facility]. Patient continued to look through the list. Therapy then came into the room. BETSY told patient SW can check back. Shanna Haro MSW GRAY
--- NOTE | 2024-06-19 10:39 | PN.HOSP_ITS ---
Reason for Visit Reason for Visit: Diagnoses Sepsis, unspecified organism (06/09/24) Dehydration (06/09/24) Hypo-osmolality and hyponatremia (06/09/24) Other pulmonary embolism without acute cor pulmonale (06/09/24) Respiratory failure, unspecified with hypoxia (06/09/24) Acute kidney failure, unspecified (06/09/24) Diarrhea, unspecified (06/09/24) Weakness (06/09/24) COVID-19 (06/09/24) Objective Data Objective Data Vital Signs: Vital Signs Temp Pulse Resp BP Pulse Ox O2 Del Method O2 Flow Rate 97.2 F L 109 H 26 H 114/67 97 Nasal Cannula 4 06/19/24 09:22 06/19/24 09:22 06/19/24 09:22 06/19/24 09:22 06/19/24 09:22 06/19/24 10:00 06/19/24 10:00 FiO2 55 06/15/24 16:19 Oxygen Flow Rate (L/min) 4 Oxygen Delivery Method Nasal Cannula Weight: 223 lb 8.78 oz Body Mass Index (BMI) 34.9 Intake & Output: Intake and Output for Last 24 Hours 06/17/24 06/18/24 06/19/24 23:59 23:59 23:59 Intake Total 960.90 / 1060.90 1530 / 1530 100 / 100 Output Total 850 / 1200 2825 / 2825 500 / 500 Balance 110.90 / -139.10 -1295 / -1295 -400 / -400 Lab / Micro Data 06/19/24 05:45 06/19/24 05:45 Labs: Laboratory Results - last 24 hr 06/16/24 09:10: Diff Path Review Reviewed 06/19/24 05:45: WBC 3.7 L, RBC 2.76 L, Hgb 9.2 L, Hct 27.7 L, MCV 100.4 H, MCH 33.3 H, MCHC 33.2, RDW Std Deviation 50.9 H, RDW Coeff of Chetan 13.9, Plt Count 35 L*, MPV TNP, Immature Gran % (Auto) 0.500, Neut % (Auto) 77.5 H, Lymph % (Auto) 11.1 L, Placer % (Auto) 6.5, Eos % (Auto) 4.1, Baso % (Auto) 0.3, Absolute Neuts (auto) 2.9, Absolute Lymphs (auto) 0.41 L, Nucleated RBC % 0.5, Differential Comment SCANNED, Diff Path Review May foll, Platelet Estimate MKD DEC, Sodium 141, Potassium 3.9, Chloride 106, Carbon Dioxide 31.0, Anion Gap 4 L, BUN 27 H, Creatinine 1.11, Estim Creat Clear Calc 66.25, Est GFR (MDRD) Af Amer 83, Est GFR (MDRD) Non-Af 69, BUN/Creatinine Ratio 24.3 H, Glucose 144 H, Calcium 8.0 L, Iron 85, TIBC 190 L, Iron Saturation 44.7, Ferritin 364 Micro: Microbiology 06/15/24 12:45 Urine Catheter - Bernard Urine Culture - Final Klebsiella pneumoniae sp pneum Enterococcus faecalis 06/15/24 10:20 Blood Culture (Wb) - Right Hand Blood Culture - Preliminary No growth in 48 hours. 06/15/24 10:18 Blood Culture (Wb) - Anticubital Right Blood Culture - Preliminary No growth in 48 hours. 06/15/24 12:34 Nasal Secretion MRSA (PCR) - Final 06/15/24 10:10 Mucosa - Nasopharyngeal Respiratory Panel (PCR) - Final 06/15/24 12:45 Urine Catheter - Bernard Legionella Antigen - Final 06/15/24 12:45 Urine Catheter - Bernard Streptococcus pneumoniae Antigen (M - Final 06/09/24 19:45 Blood Culture (Wb) - Anticubital Left Blood Culture - Final No growth in 5 days. 06/09/24 20:08 Blood Culture (Wb) - Anticubital Left Blood Culture - Final No growth in 5 days. 06/09/24 20:05 Urine, Catheterized Urine Culture - Final Enterococcus faecalis 06/10/24 09:15 Stool Clostridioides difficile (PCR) - Final 06/09/24 19:48 Mucosa - Nose SARS-CoV-2, Influenza & RSV (PCR) - Final SARS-CoV-2 (COVID 19 PCR) Physical Exam Narrative Seen and examined. Bleeding has been controlled. Lower extremity swelling is better. Upper extremity still swollen but slightly better. Continue IV furosemide. Shortness of breath better. On 4 L of oxygen eating his breakfast No further bleeding from the PICC line after the 06/17/2024 morning incident. Patient also has clotted blood on the left elbow and arm which had subcutaneous ecchymosis and bruise last 2 to 3 days. Physical exam General: Alert, Oriented x3, Cooperative. BMI 35.0 kg/m? HEENT: Atraumatic, PERRLA, EOMI, Normocephalic Oral: Oral mucosa moist no Gingival or Mucosal Lesions/ Ulcerations Neck: Supple, No JVD, Negative Carotid Bruits Chest wall/Lungs: Air entry diminished in bilateral lungs. Mild R>L coarse crepitation better. Hypoxia Cardiovascular: Regular rate, Regular Rhythm, Normal S1, Normal S2, No M/G/R. Abdomen: Bowel Sounds Present, Soft, Non Tender, Non-Distended : Bernard catheter. Dark-colored urine. No renal angle tenderness. No suprapubic tenderness. Extremities: Bilateral upper and lower arms edema better., Capillary Refill Less than 3 Seconds Skin: Subcutaneous blackish discoloration of left elbow and arm seems clotted blood, overlying skin is black.no seepage of fluid. Cushion under both elbows for pressure offloading. No active bleeding. Musculoskeletal: No Tenderness to Palpation of Joints or Extremities Neurological: Cranial nerves II-XII grossly intact, DTR 2+/4. No acute focal neurological deficit. Psych/Mental Status: Flat affect. Assessment & Plan Assessment/Plan (1) COVID: (2) Generalized weakness: (3) Diarrhea: (4) Acute kidney injury: (5) Acute hyponatremia: (6) Dehydration: PLAN: Plan Patient is a 73-year-old gentleman with history of multiple myeloma who was diagnosed with COVID a week prior to his admission presented with progressive generalized weakness 1. Most likely sepsis from secondary bacterial pneumonia in immunocompromised/low BP from diuretic: During the hospital course, the patient probably developed sepsis with clinical indicators of tachycardia, tachypnea and severe hypoxia due to pneumonia probably bacterial secondary infection on COVID-19 with acute sepsis-related organ dysfunction as evidenced by acute hypoxic respiratory failure requiring Airvo, 8 L of oxygen, lactic acidosis and elevated procalcitonin and toxic granulation. Patient had severe thrombocytopenia from before. D-dimer also elevated. Chest x-ray shows right upper and bilateral lower lobes infiltrate. CTA chest ordered but patient was hemodynamically unstable therefore he will until he gets more stable. Discussed with pharmacy intake technician/autos disassembler and wanted to give 2 L bolus to stabilize the blood pressure. If patient gets fluid refractory hypotension requiring vasopressors and then will be transferred to ICU. Patient is also immunosuppressed with history of multiple myeloma on Revlimid and history of colon cancer status post colon resection. ID was consulted. Recommended to add vancomycin. Zosyn was started yesterday. Respiratory panel, urinary antigens and MRSA nasal screen negative. Blood culture pending 06/16: Urinary antigens are negative. MRSA PCR negative. Blood culture pending. Respiratory panel negative. Discussed with the ID. Vancomycin patient also has swallowing difficulty and risk for aspiration therefore going for cookie swallow test. 06/16: RUL and RLL lobar and segmental branches PE: CTPA was initially difficult yesterday shows above findings. Right lower lobe also has infiltrate and atelectasis. BNP normal. 2D echo reported normal right ventricle, EF 60% normal LV size. Technically difficult study with limited images. Patient was discussed with Dr. Kelechi Roberts yesterday and today. Continue IV heparin drip as patient has thrombocytopenia, did not show significant drop compared to yesterday. Midline ordered. Yesterday, workup for hypercoagulable disorder including antiphospholipid antibodies were ordered. Reticulocyte panel shows immature 12.8% high. INR 1.2. LDH 320. Fibrinogen 683 high, acute phase reactant. Antiphospholipid antibodies are pending. Transaminases improved. ALP 150. Vascular surgery was consulted for opinion regarding IVC filter but patient refused. 06/17: Continue antibiotic 06/18: ID to recommend whether to change antibiotic Zosyn to some other antibiotic in view of thrombocytopenia from 45K-35K. Active bleeding/adverse effect of IV heparin due to baseline chronic thrombocytopenia and anemia from multiple myeloma: Acute care was given with respect to hemostasis, pressure application for at PICC line after discontinuation of IV heparin drip. Discussed with the pharmacist and protamine IV reversal agent was given. Hemostasis achieved. I called Dr. Pradeep Suárez, vascular surgeon and evaluated the patient and thinks the left elbow and arm has clotted hematoma but the skin does not seem necrotic but has high risk of getting skin necrosis. If he gets his skin necrosis, will need wound care and further care. Furthermore, patient's oncologist Dr. Kelechi Roberts was called and he agreed with our treatment. Patient not candidate for anticoagulation. He again refused for IVC filter. He does not want to sign consent form. 06/18: No further bleeding since yesterday. I talked to the patient's son, Mr. Rickie Handley who came to visit the patient. I talked to him 2-3 times over the phone and went over the my assessment, diagnosis, hospital course, PE, IV heparin drip and bleeding episode. He still does not want IV satiated. Patient stated he follows [facility] PCP and he will see lung doctor there and ask about IVC filter. I told him Dr. Kelechi Roberts suggested and recommended IVC filter and I talked to him but he said he will ask him. 06/19: The patient is stated that he needs to talk to PCP and Dr. Kelechi Roberts before making his final decision about the IVC filter. Till now he is refusing for IVC filter even his son tried to convince him yesterday. Again I called to Dr. Kelechi Roberts if he can talk to the patient regarding indication, benefit and risk of IVC filter and he said he will talk to the patient. Furthermore, I tried to contact his PCP Dr. Brenton Montgomery, [phone] number in the chart and after long wait after about 15 minutes, I came to know that his PCP is on vacation and some other provider covering him might give me a call back. I gave my phone number is call back number. 2.. Acute kidney injury ? Admitted to a monitored bed patient started on IV hydration with subsequent monitoring of electrolyte ? Patient acute kidney injury resolved. 06/12: LUKE resolved. 06/16: Mild hypokalemia with K3.4. Creatinine normal. 06/17: Potassium is normal. BUN/creatinine 26/1.1. 06/19: Creatinine is on baseline. Hypovolemic hyponatremia ? Secondary to dehydration patient is on IV fluid with subsequent monitoring of electrolyte 06/13:? Patient hyponatremia resolved. Serum sodium level 137. Patient has bilateral leg swelling., Yesterday, he refused for venous duplex. He complained of the leg pain and leg swelling. On IV Lasix, the dose increased. 06/14: Generalized legs and arms edema is better on Lasix 40 IV twice daily 06/15: Patient might have low BP from Lasix. His baseline is also around 110s. Lasix was discontinued. Venous duplex was limited yesterday due to patient intolerance but right lower extremity veins did not show evidence of DVT 06/16: Patient is maintaining his blood pressure 114/67. 3. Recent COVID 19 infection with secondary bacterial infection as mentioned above ? did continue with symptom management 06/13: Discontinue the COVID isolation. Patient got the symptoms of COVID including cough generalized weakness around Booker time and New Year's Madeleine. 4. Diarrhea ? CT of the abdomen did show depressed colon with air-fluid levels plan is to treat symptomatically 06/12: No BM today. 06/13: Diarrhea has resolved. 5. Hypokalemia -Corrected per protocol 06/14: Patient also had hypophosphatemia therefore on Neutra-Phos. 6. Bilateral lower lobe patchy consolidative airspace disease questionable pneumonia. ? Given patient immunosuppressive state patient was started on antibiotic therapy 7. Multiple myeloma ? Patient is on Revlimid and follows with Dr. Roberts as outpatient 06/18: Revlimid on hold after discussion with Dr. Kelechi Roberts. 8. COPD ? Currently not in exacerbation aerosol treatment as needed 9. Class II obesity with BMI of 35 kg/m? ? Complicating care weight loss advised 06/12: Patient requires 3 people assist for standing or ambulate. 10. Physical deconditioning ? Requested for PT OT eval and manager social services to assist with discharge planning 11. Nonspecific nodule measuring 1 cm in the left adrenal gland -Plan is for patient to undergo subsequent outpatient evaluation with either non-contrast adrenal CT or chemical-shift adrenal MRI follow-up study. 12. DVT prophylaxis ?06/12: Platelet count 62K. Has chronic thrombocytopenia, B12 61 - 78,000. 100 55K on admission. Heparin subcu has been discontinued since. Total time of the visit including total time spent in counseling or coordination of care, (more than 50% of the total time, spent in obtaining medical information from nurses and other ancillary care providers ,explaining to the patient about labs, imaging, diagnosis and management of active complex medical conditions), discussion with multiple senior telecommunications consultant, patient's son, review of labs and imaging is 35 minutes. Clinical Impression(s) from Imaging Studies CTPA 06/15/2024 Right pulmonary embolism. No arterial dissection. Bibasilar consolidations, right more than left. Chest X-Ray 06/09/24 20:05 IMPRESSION: Patchy bibasilar pulmonary opacities may be atelectasis, scarring, or perhaps pneumonia. Electronically Signed: Rai Agrawal, at 20:22 EST , Abdomen/Pelvis CT 06/09/24 21:28 IMPRESSION: 1. Postoperative changes in the interval wall with associated hernia repair. Low-attenuation collection in the anterior abdominal wall measures up to 1.2 cm in thickness and may be seroma or chronic hematoma. 2. Patchy consolidative airspace disease in the visualized lower lobes may be pneumonia. 3. Nonspecific nodule measuring 1 cm in the left adrenal gland. ACR White Paper guidelines (Renata, et al. JACR 2017; 14(8):0956-7909) recommend a low dose, non-contrast adrenal CT or chemical-shift adrenal MRI follow-up study. 4. Colorectal anastomosis identified. 5. The colon is mostly decompressed with air fluid levels identified. No small bowel obstruction. This would correlate with a diarrheal illness. No focal or diffuse inflammatory change. Electronically Signed: Rai Agrawal at 22:38 EST , Venous Doppler Study 06/12/24 10:56 Interpretation Summary Deep veins of the right lower extremity are patent and compressible segmentally. There is no evidence of right lower extremity deep vein thrombosis. Limited study due to patient intolerance Ordering Physician: Manjit Esposito Performed By: Yana Elam, HTAICS, RVT Chest X-Ray 06/14/24 19:20 IMPRESSION: Right upper and bilateral lower lobe infiltrate. Electronically Signed: Jj Nesbitt MD at 19:56 EST Reading Location ID and State: [facility] / [place] Tel , Service support , Charges/Coding Visit Charges Inpatient E&M: 97006 Subs Hosp L3
[2024-06-19] MEDS: Furosemide 40 MG/4 ML Vial IV (13:32)
[2024-06-19] MEDS: 0.9% Saline Lock 10 ML Syringe IV (13:32)
--- NOTE | 2024-06-19 14:39 | CASEMGMT ---
BETSY called Dr Roberts's office and left a message for the ceramic products sales engineer. BETSY requesting a return call regarding when patient is due for Daratumumab next. Shanna Haro MANAGER REPORTING GRAY
[2024-06-19 15:07] LABS: Beta-2-Glycoprotein I IgA <9 (0-25); Beta-2-Glycoprotein I IgG <9 (0-20); Beta-2-Glycoprotein I IgM <9 (0-32)
[2024-06-19 16:00] LABS: Pathologist Review Reviewed
[2024-06-19 16:04] LABS: Pathologist Review Reviewed
--- NOTE | 2024-06-19 16:33 | PCM.PN.ID ---
Physical Exam Narrative Feeling better, breathing much improved, no fever, no n/v/d. Const alert and no apparent distress General Appearance: cooperative Resp normal air movement and clear to auscultation bilaterally Cardio regular rate and regular rhythm GI soft to palpation, non-tender and non-distended Skin no rashes or lesions noted ID ID: Route of nutrition/ use of supplements: [] Nutritional Intake: [] IV Site: [] Bernard Catheter: [] Assessment & Plan Assessment/Plan (1) Sepsis: PLAN: Treating for pneumonia in immunosuppressed patient. Feeling much better today. Ok to stop zosyn today. Will follow d/w Dr. Esposito (2) COVID: (3) Acute kidney injury: (4) Hypoxic respiratory failure:
[2024-06-19 17:07] LABS: Beta-2-Microglobulin, S 2.7 mg/L (0.6-2.4)
[2024-06-19] MEDS: Metoprolol(XL)Succ 25 MG Tablet PO (19:40)
[2024-06-20] VITALS (9 sets, daily range): BP systolic 93–131; BP diastolic 43–69; PULSE 84–105; RESP 16–22; TEMP 36.1–38; O2SAT 94–99
[2024-06-20] MEDS: Na Biphos/Potassium Phosphate PACKET 1 PACKET PO ×3 (06:36→22:34)
--- NOTE | 2024-06-20 07:26 | CPS ---
Pt has been refusing aerosols, family brought his inhaler in this weekend. Texted Dr Esposito.
[2024-06-20 08:02] LABS: Absolute Lymphocyte Count 0.53 X10^3/uL (0.83-4.51); Absolute Neutrophil Count 2.7 X10^3/uL (2.0-7.7); Basophil# 0.01 X10^3/uL; Basophil% 0.3 % (0-1); Eosinophil# 0.16 X10^3/uL; Eosinophils% 4.2 % (0-5); Hematocrit 29.5 % (40-54); Hemoglobin 9.7 g/dL (13.0-16.5); Lymphocyte # 0.53 X10^3/ul (0.83-4.51); Lymphocyte % 14.1 % (19-41); Mean Corp Hgb Conc 32.9 g/dL (32-36); Mean Corpuscular Hgb 33.1 pg (27.0-32.0); Mean Corpuscular Volume 100.7 fL (80-94); Monocyte# 0.34 X10^3/uL; NRBC Flagged by Analyzer 0 % (0-5); Neutrophil # 2.71 X10^3/uL (2.7-7.7); Neutrophil % 71.9 % (47-70); POSITIVE COUNT YES; POSITIVE DIFFERENTIAL YES; RBC Distribution Width SD 51.5 fl (35.1-43.9); Red Blood Count 2.93 M/mm3 (4.6-6.2); White Blood Count 3.8 K/mm3 (4.4-11.0)
[2024-06-20 08:26] LABS: Differential Indicated SCAN CRITERIA MET; Platelet Count 37 K/mm3 (150-450)
[2024-06-20 08:32] LABS: AST(SGOT) 14 U/L (15-37); Alanine Aminotransfer ALT/SGPT 62 U/L (16-61); Alkaline Phosphatase 134 U/L (45-117); Anion Gap 5 (5-15); BUN 23 mg/dL (7-18); BUN/Creat Ratio 23.8 RATIO (10-20); Bilirubin, Direct 0.27 mg/dL (0.00-0.30); Calcium,Total 8.6 mg/dL (8.5-10.1); Chloride 105 mmol/L (98-107); Creatinine, Serum 0.96 mg/dL (0.70-1.30); EST Glomerular Filtration Rate 81 mL/min (>60); Est Glom Filt Rate - Afr Amer 98 mL/min (>60); Globulin 3.2 g/dL (2.2-4.2); Glucose 152 mg/dL (74-106); Potassium 4.1 mmol/L (3.5-5.1); Protein, Total 5.2 g/dL (6.4-8.2); Sodium Level 141 mmol/L (136-145)
[2024-06-20 09:15] LABS: Platelet Estimate MKD DEC (ADEQ)
[2024-06-20] MEDS: Acyclovir 200 MG Capsule 400 MG PO ×2 (09:34→22:34)
[2024-06-20] MEDS: Pantoprazole Sodium 40 MG Tablet PO (09:35)
[2024-06-20] MEDS: Menthol/Lanolin/Calamine/Znox 113 GM Tube 1 APPLIC TOPICAL ×2 (09:35→22:33)
[2024-06-20] MEDS: Potassium Chloride Oral Tablet 20 MEQ PO ×2 (09:35→16:23)
[2024-06-20] MEDS: Metoprolol(XL)Succ 25 MG Tablet PO (09:37)
--- NOTE | 2024-06-20 10:32 | CASEMGMT ---
Referral sent to [facility]. June Barbosa DC Planning Asst.
--- NOTE | 2024-06-20 10:50 | CASEMGMT ---
BETSY spoke with Mimi with Dr Roberts's office. Patient is getting an injection (Daratumumab) for his cancer every other week. BETSY explained patient will likely not be able to get this injection while he is at a longterm. Mimi said Dr Roberts would likely not want patient to have injections while he is unable to care for himself as it may make things worse. BETSY is going to try and see if patient can continue the Revlimid pills while at the SNF. BETSY told Mimi MEYER will let her know where and when patient is leaving. Plan: SNF pending accepting facility and insurance approval. Shanna Haro ENGRAVER PANTOGRAPH GRAY
--- NOTE | 2024-06-20 11:28 | CPS ---
Pt refused [facility]I teaching.
[2024-06-20 13:17] LABS: Pathologist Review Reviewed
[2024-06-20 13:21] LABS: Pathologist Review Reviewed
[2024-06-20] MEDS: Budesonide/Formoterol Fumarate 10.2 GM Inhaler 2 PUFF INHALATION ×2 (13:49→22:34)
[2024-06-20 14:07] LABS: Anti-Cardiolipin Ab, IgA, Qn < 9 APL U/mL (0-11); Anti-Cardiolipin Ab, IgG, Qn 47 GPL U/mL (0-14); Anti-Cardiolipin Ab, IgM, Qn < 9 MPL U/mL (0-12); Dilute Prothrombin Time (dPT) 47.2 sec (0.0-47.6); Dilute Russell Viper Venom 47.8 sec (0.0-47.0); Dilute Russell Viper Venom Mix 41.6 sec (0.0-40.4); Hexagonal Phase Phospholipid 2 10 sec (0-11); Interpretation Comment: (.); Thrombin Time 34.2 sec (0.0-23.0); Thrombin Time Mix 32.4 sec (0.0-23.0); dPT Confirm Ratio 0.94 Ratio (0.00-1.34)
--- NOTE | 2024-06-20 14:51 | CASEMGMT ---
Addendum entered by June Barbosa 06/23/24 14:47: Per [facility], precert has not been submitted. They will submit it today. June Barbosa DC Planning Asst. Addendum entered by June Barbosa 06/23/24 09:04: Updates sent via [facility] to [facility]. June Barbosa DC Planning Asst. Original Note: [facility] has accepted and will submit for precert. SW updated. June Barbosa DC Planning Asst.
--- NOTE | 2024-06-20 15:20 | PCM.PN.HOSP ---
Reason for Visit Reason for Visit: Diagnoses Sepsis, unspecified organism (06/09/24) Dehydration (06/09/24) Hypo-osmolality and hyponatremia (06/09/24) Other pulmonary embolism without acute cor pulmonale (06/09/24) Respiratory failure, unspecified with hypoxia (06/09/24) Acute kidney failure, unspecified (06/09/24) Diarrhea, unspecified (06/09/24) Weakness (06/09/24) COVID-19 (06/09/24) Objective Data Objective Data Vital Signs: Vital Signs Temp Pulse Resp BP Pulse Ox O2 Del Method O2 Flow Rate 99.2 F H 105 H 19 H 93/61 98 Nasal Cannula 2 06/20/24 13:30 06/20/24 13:30 06/20/24 13:30 06/20/24 13:30 06/20/24 13:30 06/20/24 14:00 06/20/24 14:00 FiO2 55 06/15/24 16:19 Oxygen Flow Rate (L/min) 2 Oxygen Delivery Method Nasal Cannula Weight: 223 lb 8.78 oz Body Mass Index (BMI) 34.9 Intake & Output: Intake and Output for Last 24 Hours 06/18/24 06/19/24 06/20/24 23:59 23:59 23:59 Intake Total 1530 / 1530 840 / 890 200 / 200 Output Total 2825 / 2825 1900 / 2350 800 / 800 Balance -1295 / -1295 -1060 / -1460 -600 / -600 Lab / Micro Data 06/20/24 07:49 06/20/24 07:49 Labs: Laboratory Results - last 24 hr 06/16/24 09:10: PT Diluted 47.2, PT Ratio 0.94, Thrombin Time 34.2 H, Thrombin Time Mix 32.4 H, Lupus Anticoag aPTT 64.0 H, LA PTT Mix/Correction 58.0 H, Dil Edwin Viper Venom 47.8 H, dRVVT Confirm Interp 1.0, dRVVT Mixing Study 41.6 H, Hexagonal Phospholipid 10, Lupus Anticoag Interp Comment:, [id number] 2.7 H, Anti-Cardiolipin IgG Ab 47 H, Anti-Cardiolipin IgA Ab < 9, Anti-Cardiolipin IgM Ab < 9 06/17/24 06:29: Diff Path Review Reviewed 06/18/24 05:35: Diff Path Review Reviewed 06/19/24 05:45: Diff Path Review Reviewed 06/20/24 07:49: WBC 3.8 L, RBC 2.93 L, Hgb 9.7 L, Hct 29.5 L, MCV 100.7 H, MCH 33.1 H, MCHC 32.9, RDW Std Deviation 51.5 H, RDW Coeff of Chetan 14.0, Plt Count 37 L*, Immature Gran % (Auto) 0.500, Neut % (Auto) 71.9 H, Lymph % (Auto) 14.1 L, Creek % (Auto) 9.0, Eos % (Auto) 4.2, Baso % (Auto) 0.3, Absolute Neuts (auto) 2.7, Absolute Lymphs (auto) 0.53 L, Nucleated RBC % 0, Differential Comment COMMENT, Diff Path Review Reviewed, Platelet Estimate MKD DEC, Sodium 141, Potassium 4.1, Chloride 105, Carbon Dioxide 31.0, Anion Gap 5, BUN 23 H, Creatinine 0.96, Estim Creat Clear Calc 76.60, Est GFR (MDRD) Af Amer 98, Est GFR (MDRD) Non-Af 81, BUN/Creatinine Ratio 23.8 H, Glucose 152 H, Calcium 8.6, Total Bilirubin 0.70, Direct Bilirubin 0.27, AST 14 L, ALT 62 H, Alkaline Phosphatase 134 H, Total Protein 5.2 L, Albumin 2.0 L, Globulin 3.2 Micro: Microbiology 06/15/24 10:18 Blood Culture (Wb) - Anticubital Right Blood Culture - Final No growth in 5 days. 06/15/24 10:20 Blood Culture (Wb) - Right Hand Blood Culture - Final No growth in 5 days. 06/15/24 12:45 Urine Catheter - Bernard Urine Culture - Final Klebsiella pneumoniae sp pneum Enterococcus faecalis 06/15/24 12:34 Nasal Secretion MRSA (PCR) - Final 06/15/24 10:10 Mucosa - Nasopharyngeal Respiratory Panel (PCR) - Final 06/15/24 12:45 Urine Catheter - Bernard Legionella Antigen - Final 06/15/24 12:45 Urine Catheter - Bernard Streptococcus pneumoniae Antigen (M - Final 06/09/24 19:45 Blood Culture (Wb) - Anticubital Left Blood Culture - Final No growth in 5 days. 06/09/24 20:08 Blood Culture (Wb) - Anticubital Left Blood Culture - Final No growth in 5 days. 06/09/24 20:05 Urine, Catheterized Urine Culture - Final Enterococcus faecalis 06/10/24 09:15 Stool Clostridioides difficile (PCR) - Final 06/09/24 19:48 Mucosa - Nose SARS-CoV-2, Influenza & RSV (PCR) - Final SARS-CoV-2 (COVID 19 PCR) Physical Exam Narrative Seen and examined. No further bleeding from the PICC line after the 06/17/2024 morning incident. Lower extremity swelling also improved. Bilateral upper extremity swelling gradually improving. Patient also has clotted blood on the left elbow and arm which had subcutaneous ecchymosis and bruise . Currently patient on 2 L of oxygen Physical exam General: Alert, Oriented x3, Cooperative. BMI 35.0 kg/m? HEENT: Atraumatic, PERRLA, EOMI, Normocephalic Oral: Oral mucosa moist no Gingival or Mucosal Lesions/ Ulcerations Neck: Supple, No JVD, Negative Carotid Bruits Chest wall/Lungs: Air entry diminished in bilateral lungs. Mild R>L coarse crepitation better. Hypoxia Cardiovascular: Regular rate, Regular Rhythm, Normal S1, Normal S2, No M/G/R. Abdomen: Bowel Sounds Present, Soft, Non Tender, Non-Distended : Bernard catheter. Dark-colored urine. No renal angle tenderness. No suprapubic tenderness. Extremities: Bilateral upper and lower arms edema better., Capillary Refill Less than 3 Seconds Skin: Subcutaneous blackish discoloration of left elbow and arm seems clotted blood, overlying skin is black.no seepage of fluid. Cushion under both elbows for pressure offloading. No active bleeding. Musculoskeletal: No Tenderness to Palpation of Joints or Extremities Neurological: Cranial nerves II-XII grossly intact, DTR 2+/4. No acute focal neurological deficit. Psych/Mental Status: Flat affect. Assessment & Plan Assessment/Plan (1) COVID: (2) Generalized weakness: (3) Diarrhea: (4) Acute kidney injury: (5) Acute hyponatremia: (6) Dehydration: PLAN: Plan Patient is a 73-year-old gentleman with history of multiple myeloma who was diagnosed with COVID a week prior to his admission presented with progressive generalized weakness 1. Most likely sepsis from secondary bacterial pneumonia in immunocompromised/low BP from diuretic: During the hospital course, the patient probably developed sepsis with clinical indicators of tachycardia, tachypnea and severe hypoxia due to pneumonia probably bacterial secondary infection on COVID-19 with acute sepsis-related organ dysfunction as evidenced by acute hypoxic respiratory failure requiring Airvo, 8 L of oxygen, lactic acidosis and elevated procalcitonin and toxic granulation. Patient had severe thrombocytopenia from before. D-dimer also elevated. Chest x-ray shows right upper and bilateral lower lobes infiltrate. CTA chest ordered but patient was hemodynamically unstable therefore he will until he gets more stable. Discussed with dairy farm worker/motor vehicle clerk and wanted to give 2 L bolus to stabilize the blood pressure. If patient gets fluid refractory hypotension requiring vasopressors and then will be transferred to ICU. Patient is also immunosuppressed with history of multiple myeloma on Revlimid and history of colon cancer status post colon resection. ID was consulted. Recommended to add vancomycin. Zosyn was started yesterday. Respiratory panel, urinary antigens and MRSA nasal screen negative. Blood culture pending 06/16: Urinary antigens are negative. MRSA PCR negative. Blood culture pending. Respiratory panel negative. Discussed with the ID. Vancomycin patient also has swallowing difficulty and risk for aspiration therefore going for cookie swallow test. 06/16: RUL and RLL lobar and segmental branches PE: CTPA was initially difficult yesterday shows above findings. Right lower lobe also has infiltrate and atelectasis. BNP normal. 2D echo reported normal right ventricle, EF 60% normal LV size. Technically difficult study with limited images. Patient was discussed with Dr. Kelechi Roberts yesterday and today. Continue IV heparin drip as patient has thrombocytopenia, did not show significant drop compared to yesterday. Midline ordered. Yesterday, workup for hypercoagulable disorder including antiphospholipid antibodies were ordered. Reticulocyte panel shows immature 12.8% high. INR 1.2. LDH 320. Fibrinogen 683 high, acute phase reactant. Antiphospholipid antibodies are pending. Transaminases improved. ALP 150. Vascular surgery was consulted for opinion regarding IVC filter but patient refused. 06/17: Continue antibiotic 06/19: ID to recommend whether to change antibiotic Zosyn to some other antibiotic in view of thrombocytopenia from 45K-35K. 06/20: ID okay with stopping Zosyn. Active bleeding/adverse effect of IV heparin due to baseline chronic thrombocytopenia and anemia from multiple myeloma: Acute care was given with respect to hemostasis, pressure application for at PICC line after discontinuation of IV heparin drip. Discussed with the pharmacist and protamine IV reversal agent was given. Hemostasis achieved. I called Dr. Pradeep Suárez, vascular surgeon and evaluated the patient and thinks the left elbow and arm has clotted hematoma but the skin does not seem necrotic but has high risk of getting skin necrosis. If he gets his skin necrosis, will need wound care and further care. Furthermore, patient's oncologist Dr. Kelechi Roberts was called and he agreed with our treatment. Patient not candidate for anticoagulation. He again refused for IVC filter. He does not want to sign consent form. 06/18: No further bleeding since yesterday. I talked to the patient's son, Mr. Rickie Handley who came to visit the patient. I talked to him 2-3 times over the phone and went over the my assessment, diagnosis, hospital course, PE, IV heparin drip and bleeding episode. He still does not want IV satiated. Patient stated he follows [facility] PCP and he will see lung doctor there and ask about IVC filter. I told him Dr. Kelechi Roberts suggested and recommended IVC filter and I talked to him but he said he will ask him. 06/19: The patient is stated that he needs to talk to PCP and Dr. Kelechi Roberts before making his final decision about the IVC filter. Till now he is refusing for IVC filter even his son tried to convince him yesterday. Again I called to Dr. Kelechi Roberts if he can talk to the patient regarding indication, benefit and risk of IVC filter and he said he will talk to the patient. Furthermore, I tried to contact his PCP Dr. Brenton Montgomery, [phone] number in the chart and after long wait after about 15 minutes, I came to know that his PCP is on vacation and some other provider covering him might give me a call back. I gave my phone number is call back number. 06/20: Patient again confirmed that she does not want IVC filter. Severe thrombocytopenia continued. Discharge plan with SNF. Discussed with the telephonic nurse case manager 2.. Acute kidney injury ? Admitted to a monitored bed patient started on IV hydration with subsequent monitoring of electrolyte ? Patient acute kidney injury resolved. 06/12: LUKE resolved. 06/16: Mild hypokalemia with K3.4. Creatinine normal. 06/17: Potassium is normal. BUN/creatinine 26/1.1. 06/19: Creatinine is on baseline. Hypovolemic hyponatremia ? Secondary to dehydration patient is on IV fluid with subsequent monitoring of electrolyte 06/13:? Patient hyponatremia resolved. Serum sodium level 137. Patient has bilateral leg swelling., Yesterday, he refused for venous duplex. He complained of the leg pain and leg swelling. On IV Lasix, the dose increased. 06/14: Generalized legs and arms edema is better on Lasix 40 IV twice daily 06/15: Patient might have low BP from Lasix. His baseline is also around 110s. Lasix was discontinued. Venous duplex was limited yesterday due to patient intolerance but right lower extremity veins did not show evidence of DVT 06/16: Patient is maintaining his blood pressure 114/67. 3. Recent COVID 19 infection with secondary bacterial infection as mentioned above ? did continue with symptom management 06/13: Discontinue the COVID isolation. Patient got the symptoms of COVID including cough generalized weakness around Prole time and New Year's Madeleine. 4. Diarrhea ? CT of the abdomen did show depressed colon with air-fluid levels plan is to treat symptomatically 06/12: No BM today. 06/13: Diarrhea has resolved. 5. Hypokalemia -Corrected per protocol 06/14: Patient also had hypophosphatemia therefore on Neutra-Phos. 6. Bilateral lower lobe patchy consolidative airspace disease questionable pneumonia. ? Given patient immunosuppressive state patient was started on antibiotic therapy 7. Multiple myeloma ? Patient is on Revlimid and follows with Dr. Roberts as outpatient 06/18: Revlimid on hold after discussion with Dr. Kelechi Roberts. 8. COPD ? Currently not in exacerbation aerosol treatment as needed 9. Class II obesity with BMI of 35 kg/m? ? Complicating care weight loss advised 06/12: Patient requires 3 people assist for standing or ambulate. 10. Physical deconditioning ? Requested for PT OT eval and social work specialist to assist with discharge planning 11. Nonspecific nodule measuring 1 cm in the left adrenal gland -Plan is for patient to undergo subsequent outpatient evaluation with either non-contrast adrenal CT or chemical-shift adrenal MRI follow-up study. 12. DVT prophylaxis ?06/12: Platelet count 62K. Has chronic thrombocytopenia, B12 61 - 78,000. 100 55K on admission. Heparin subcu has been discontinued since. Clinical Impression(s) from Imaging Studies CTPA 06/15/2024 Right pulmonary embolism. No arterial dissection. Bibasilar consolidations, right more than left. Chest X-Ray 06/09/24 20:05 IMPRESSION: Patchy bibasilar pulmonary opacities may be atelectasis, scarring, or perhaps pneumonia. Electronically Signed: Rai Naveen Agrawal DO at 20:22 EST , Abdomen/Pelvis CT 06/09/24 21:28 IMPRESSION: 1. Postoperative changes in the interval wall with associated hernia repair. Low-attenuation collection in the anterior abdominal wall measures up to 1.2 cm in thickness and may be seroma or chronic hematoma. 2. Patchy consolidative airspace disease in the visualized lower lobes may be pneumonia. 3. Nonspecific nodule measuring 1 cm in the left adrenal gland. ACR White Paper guidelines (Renata, et al. JACR 2017; 14(8):6857-7460) recommend a low dose, non-contrast adrenal CT or chemical-shift adrenal MRI follow-up study. 4. Colorectal anastomosis identified. 5. The colon is mostly decompressed with air fluid levels identified. No small bowel obstruction. This would correlate with a diarrheal illness. No focal or diffuse inflammatory change. Electronically Signed: Rai Agrawal DO at 22:38 EST , Venous Doppler Study 06/12/24 10:56 Interpretation Summary Deep veins of the right lower extremity are patent and compressible segmentally. There is no evidence of right lower extremity deep vein thrombosis. Limited study due to patient intolerance Ordering Physician: Manjit Esposito Performed By: Yana Elam, RDCS, RVT Chest X-Ray 06/14/24 19:20 IMPRESSION: Right upper and bilateral lower lobe infiltrate. Electronically Signed: Jj Nesbitt MD at 19:56 EST , Charges/Coding Visit Charges Inpatient E&M: 84153 Subs Hosp L2
[2024-06-20] MEDS: 0.9% Saline Lock 10 ML Syringe IV (22:34)
[2024-06-21 05:20] VITALS: BP 115/50; PULSE 86; RESP 16; TEMP 37.1; O2SAT 94
[2024-06-21] MEDS: Na Biphos/Potassium Phosphate PACKET 1 PACKET PO ×3 (05:28→22:38)
[2024-06-21 06:48] LABS: Absolute Lymphocyte Count 0.66 X10^3/uL (0.83-4.51); Absolute Neutrophil Count 2.1 X10^3/uL (2.0-7.7); Basophil# 0.01 X10^3/uL; Basophil% 0.3 % (0-1); Eosinophil# 0.12 X10^3/uL; Eosinophils% 3.5 % (0-5); Hematocrit 28.7 % (40-54); Hemoglobin 9.7 g/dL (13.0-16.5); Lymphocyte # 0.66 X10^3/ul (0.83-4.51); Lymphocyte % 19.3 % (19-41); Mean Corp Hgb Conc 33.8 g/dL (32-36); Mean Corpuscular Volume 100.7 fL (80-94); Monocyte% 14.6 % (0-10); NRBC Flagged by Analyzer 0.6 % (0-5); Neutrophil # 2.12 X10^3/uL (2.7-7.7); POSITIVE COUNT YES; POSITIVE MORPHOLOGY YES; RBC Distribution Width CV 13.8 % (11.6-14.6); RBC Distribution Width SD 50.3 fl (35.1-43.9); Red Blood Count 2.85 M/mm3 (4.6-6.2); White Blood Count 3.4 K/mm3 (4.4-11.0)
[2024-06-21 06:59] LABS: Differential Indicated SCAN CRITERIA MET; Platelet Count 39 K/mm3 (150-450)
[2024-06-21 07:31] LABS: Anion Gap 8 (5-15); BUN 21 mg/dL (7-18); BUN/Creat Ratio 23.1 RATIO (10-20); Calcium,Total 8.7 mg/dL (8.5-10.1); Chloride 106 mmol/L (98-107); Creatinine, Serum 0.91 mg/dL (0.70-1.30); EST Glomerular Filtration Rate 87 mL/min (>60); Est Glom Filt Rate - Afr Amer 105 mL/min (>60); Estimated Creatinine Clearance 80.81 ml/min; Glucose 152 mg/dL (74-106); Potassium 4.2 mmol/L (3.5-5.1); Sodium Level 138 mmol/L (136-145)
[2024-06-21 08:38] LABS: Ovalocyte 1+; Platelet Estimate MKD DEC (ADEQ)
[2024-06-21 09:07] VITALS: O2SAT 95
[2024-06-21 10:55] VITALS: BP 105/76; PULSE 87; RESP 20; TEMP 36.4; O2SAT 97
[2024-06-21] MEDS: Budesonide/Formoterol Fumarate 10.2 GM Inhaler 2 PUFF INHALATION ×2 (10:57→22:39)
[2024-06-21 10:59] VITALS: BP 105/76; PULSE 87
[2024-06-21] MEDS: Metoprolol(XL)Succ 25 MG Tablet PO (10:59)
[2024-06-21] MEDS: Acyclovir 200 MG Capsule 400 MG PO ×2 (11:00→22:38)
[2024-06-21] MEDS: Potassium Chloride Oral Tablet 20 MEQ PO ×2 (11:00→17:26)
[2024-06-21] MEDS: Pantoprazole Sodium 40 MG Tablet PO (11:00)
[2024-06-21] MEDS: Menthol/Lanolin/Calamine/Znox 113 GM Tube 1 APPLIC TOPICAL ×2 (11:01→22:39)
--- NOTE | 2024-06-21 11:05 | CASEMGMT ---
SW spoke with patient letting him know that [facility] ([facility]) did accept him. SW explained he will need to take his home Revlimid to [facility]. SW also explained he will not be able to get his injections while at [facility] getting rehab. Patient said he will have to talk with Dr Roberts about that first. SW told patient SW spoke with one of Dr Roberts's nurses and let her know the plan. The nurse said Dr Roberts would likely not continue the injections until he is more mobile and able to care for himself. SW offered to give patient the nurse that BETSY spoke with. Patient said if he calls and Dr Roberts can talk he will talk with him. SW asked patient if he is going to do this today. Patient said he will try. SW explained that once insurance approves him he will be moved to [facility]. Patient told SW to slow things down a bit. SW gently asked patient what he feels still needs done. Patient said he wants to talk to Dr Roberts and he will call him today. Plan: d/c to [facility] pending insurance approval. hSanna CASTELLANO
[2024-06-21 11:50] LABS: Pathologist Review Reviewed
--- NOTE | 2024-06-21 13:15 | PCM.PN.HOSP ---
Reason for Visit Reason for Visit: Diagnoses Sepsis, unspecified organism (06/09/24) Dehydration (06/09/24) Hypo-osmolality and hyponatremia (06/09/24) Other pulmonary embolism without acute cor pulmonale (06/09/24) Respiratory failure, unspecified with hypoxia (06/09/24) Acute kidney failure, unspecified (06/09/24) Diarrhea, unspecified (06/09/24) Weakness (06/09/24) COVID-19 (06/09/24) Objective Data Objective Data Vital Signs: Vital Signs Temp Pulse Resp BP Pulse Ox O2 Del Method O2 Flow Rate 97.5 F L 87 20 H 105/76 97 Room Air 1 06/21/24 10:55 06/21/24 10:59 06/21/24 10:55 06/21/24 10:59 06/21/24 10:55 06/21/24 10:55 06/20/24 22:52 FiO2 55 06/15/24 16:19 Oxygen Flow Rate (L/min) 1 Oxygen Delivery Method Room Air Weight: 223 lb 8.78 oz Body Mass Index (BMI) 34.9 Intake & Output: Intake and Output for Last 24 Hours 06/19/24 06/20/24 06/21/24 23:59 23:59 23:59 Intake Total 840 / 890 470 / 470 100 / 100 Output Total 1900 / 2350 1400 / 1400 390 / 390 Balance -1060 / -1460 -930 / -930 -290 / -290 Lab / Micro Data 06/21/24 05:58 06/21/24 05:58 Labs: Laboratory Results - last 24 hr 06/16/24 09:10: PT Diluted 47.2, PT Ratio 0.94, Thrombin Time 34.2 H, Thrombin Time Mix 32.4 H, Lupus Anticoag aPTT 64.0 H, LA PTT Mix/Correction 58.0 H, Dil Edwin Viper Venom 47.8 H, dRVVT Confirm Interp 1.0, dRVVT Mixing Study 41.6 H, Hexagonal Phospholipid 10, Lupus Anticoag Interp Comment:, Anti-Cardiolipin IgG Ab 47 H, Anti-Cardiolipin IgA Ab < 9, Anti-Cardiolipin IgM Ab < 9 06/19/24 05:45: Diff Path Review Reviewed 06/20/24 07:49: Diff Path Review Reviewed 06/21/24 05:58: WBC 3.4 L, RBC 2.85 L, Hgb 9.7 L, Hct 28.7 L, MCV 100.7 H, MCH 34.0 H, MCHC 33.8, RDW Std Deviation 50.3 H, RDW Coeff of Chetan 13.8, Plt Count 39 L*, MPV TNP, Immature Gran % (Auto) 0.300, Neut % (Auto) 62.0, Lymph % (Auto) 19.3, [place] % (Auto) 14.6 H, Eos % (Auto) 3.5, Baso % (Auto) 0.3, Absolute Neuts (auto) 2.1, Absolute Lymphs (auto) 0.66 L, Nucleated RBC % 0.6, Diff Path Review Reviewed, Platelet Estimate MKD DEC, Ovalocytes 1+, Sodium 138, Potassium 4.2, Chloride 106, Carbon Dioxide 24.0, Anion Gap 8, BUN 21 H, Creatinine 0.91, Estim Creat Clear Calc 80.81, Est GFR (MDRD) Af Amer 105, Est GFR (MDRD) Non-Af 87, BUN/Creatinine Ratio 23.1 H, Glucose 152 H, Calcium 8.7 Micro: Microbiology 06/15/24 10:18 Blood Culture (Wb) - Anticubital Right Blood Culture - Final No growth in 5 days. 06/15/24 10:20 Blood Culture (Wb) - Right Hand Blood Culture - Final No growth in 5 days. 06/15/24 12:45 Urine Catheter - Bernard Urine Culture - Final Klebsiella pneumoniae sp pneum Enterococcus faecalis 06/15/24 12:34 Nasal Secretion MRSA (PCR) - Final 06/15/24 10:10 Mucosa - Nasopharyngeal Respiratory Panel (PCR) - Final 06/15/24 12:45 Urine Catheter - Bernard Legionella Antigen - Final 06/15/24 12:45 Urine Catheter - Bernard Streptococcus pneumoniae Antigen (M - Final 06/09/24 19:45 Blood Culture (Wb) - Anticubital Left Blood Culture - Final No growth in 5 days. 06/09/24 20:08 Blood Culture (Wb) - Anticubital Left Blood Culture - Final No growth in 5 days. 06/09/24 20:05 Urine, Catheterized Urine Culture - Final Enterococcus faecalis 06/10/24 09:15 Stool Clostridioides difficile (PCR) - Final 06/09/24 19:48 Mucosa - Nose SARS-CoV-2, Influenza & RSV (PCR) - Final SARS-CoV-2 (COVID 19 PCR) Physical Exam Narrative Seen and examined. No further bleeding from the PICC line after the 06/17/2024 morning incident. Lower extremity swelling also improved. Bilateral upper extremity swelling gradually improving. Patient also has clotted blood on the left elbow and arm which had subcutaneous ecchymosis and bruise . Currently patient on 2 L of oxygen Physical exam General: Alert, Oriented x3, Cooperative. BMI 35.0 kg/m? HEENT: Atraumatic, PERRLA, EOMI, Normocephalic Oral: Oral mucosa moist no Gingival or Mucosal Lesions/ Ulcerations Neck: Supple, No JVD, Negative Carotid Bruits Chest wall/Lungs: Air entry diminished in bilateral lungs. Mild R>L coarse crepitation better. Hypoxia Cardiovascular: Regular rate, Regular Rhythm, Normal S1, Normal S2, No M/G/R. Abdomen: Bowel Sounds Present, Soft, Non Tender, Non-Distended : Bernard catheter. Dark-colored urine. No renal angle tenderness. No suprapubic tenderness. Extremities: Bilateral upper and lower arms edema better., Capillary Refill Less than 3 Seconds Skin: Subcutaneous blackish discoloration of left elbow and arm seems clotted blood, overlying skin is black.no seepage of fluid. Cushion under both elbows for pressure offloading. No active bleeding. Musculoskeletal: No Tenderness to Palpation of Joints or Extremities Neurological: Cranial nerves II-XII grossly intact, DTR 2+/4. No acute focal neurological deficit. Psych/Mental Status: Flat affect. Assessment & Plan Assessment/Plan (1) COVID: (2) Generalized weakness: (3) Diarrhea: (4) Acute kidney injury: (5) Acute hyponatremia: (6) Dehydration: PLAN: Plan Patient is a 73-year-old gentleman with history of multiple myeloma who was diagnosed with COVID a week prior to his admission presented with progressive generalized weakness 1. Most likely sepsis from secondary bacterial pneumonia in immunocompromised/low BP from diuretic: During the hospital course, the patient probably developed sepsis with clinical indicators of tachycardia, tachypnea and severe hypoxia due to pneumonia probably bacterial secondary infection on COVID-19 with acute sepsis-related organ dysfunction as evidenced by acute hypoxic respiratory failure requiring Airvo, 8 L of oxygen, lactic acidosis and elevated procalcitonin and toxic granulation. Patient had severe thrombocytopenia from before. D-dimer also elevated. Chest x-ray shows right upper and bilateral lower lobes infiltrate. CTA chest ordered but patient was hemodynamically unstable therefore he will until he gets more stable. Discussed with plate glass installer helper/chemical processing laborer and wanted to give 2 L bolus to stabilize the blood pressure. If patient gets fluid refractory hypotension requiring vasopressors and then will be transferred to ICU. Patient is also immunosuppressed with history of multiple myeloma on Revlimid and history of colon cancer status post colon resection. ID was consulted. Recommended to add vancomycin. Zosyn was started yesterday. Respiratory panel, urinary antigens and MRSA nasal screen negative. Blood culture pending 06/16: Urinary antigens are negative. MRSA PCR negative. Blood culture pending. Respiratory panel negative. Discussed with the ID. Vancomycin patient also has swallowing difficulty and risk for aspiration therefore going for cookie swallow test. 06/16: RUL and RLL lobar and segmental branches PE: CTPA was initially difficult yesterday shows above findings. Right lower lobe also has infiltrate and atelectasis. BNP normal. 2D echo reported normal right ventricle, EF 60% normal LV size. Technically difficult study with limited images. Patient was discussed with Dr. Kelechi Roberts yesterday and today. Continue IV heparin drip as patient has thrombocytopenia, did not show significant drop compared to yesterday. Midline ordered. Yesterday, workup for hypercoagulable disorder including antiphospholipid antibodies were ordered. Reticulocyte panel shows immature 12.8% high. INR 1.2. LDH 320. Fibrinogen 683 high, acute phase reactant. Antiphospholipid antibodies are pending. Transaminases improved. ALP 150. Vascular surgery was consulted for opinion regarding IVC filter but patient refused. 06/17: Continue antibiotic 06/19: ID to recommend whether to change antibiotic Zosyn to some other antibiotic in view of thrombocytopenia from 45K-35K. 06/20: ID okay with stopping Zosyn. Hypercoagulable workup showed increased lupus anticoagulant, possible presence of inhibitor, elevated PTT. Active bleeding/adverse effect of IV heparin due to baseline chronic thrombocytopenia and anemia from multiple myeloma: Acute care was given with respect to hemostasis, pressure application for at PICC line after discontinuation of IV heparin drip. Discussed with the pharmacist and protamine IV reversal agent was given. Hemostasis achieved. I called Dr. Pradeep Suárez, vascular surgeon and evaluated the patient and thinks the left elbow and arm has clotted hematoma but the skin does not seem necrotic but has high risk of getting skin necrosis. If he gets his skin necrosis, will need wound care and further care. Furthermore, patient's oncologist Dr. Kelechi Roberts was called and he agreed with our treatment. Patient not candidate for anticoagulation. He again refused for IVC filter. He does not want to sign consent form. 06/18: No further bleeding since yesterday. I talked to the patient's son, Mr. Rickie Handley who came to visit the patient. I talked to him 2-3 times over the phone and went over the my assessment, diagnosis, hospital course, PE, IV heparin drip and bleeding episode. He still does not want IV satiated. Patient stated he follows [facility] PCP and he will see lung doctor there and ask about IVC filter. I told him Dr. Kelechi Roberts suggested and recommended IVC filter and I talked to him but he said he will ask him. 06/19: The patient is stated that he needs to talk to PCP and Dr. Kelechi oRberts before making his final decision about the IVC filter. Till now he is refusing for IVC filter even his son tried to convince him yesterday. Again I called to Dr. Kelechi Roberts if he can talk to the patient regarding indication, benefit and risk of IVC filter and he said he will talk to the patient. Furthermore, I tried to contact his PCP Dr. Brenton Montgomery, [phone] number in the chart and after long wait after about 15 minutes, I came to know that his PCP is on vacation and some other provider covering him might give me a call back. I gave my phone number is call back number. 06/20: Patient again confirmed that she does not want IVC filter. Severe thrombocytopenia continued. Discharge plan with SNF. Discussed with the case packer and sealer 06/21: Patient waiting for pre-CERT. 2.. Acute kidney injury ? Admitted to a monitored bed patient started on IV hydration with subsequent monitoring of electrolyte ? Patient acute kidney injury resolved. 06/12: LUKE resolved. 06/16: Mild hypokalemia with K3.4. Creatinine normal. 06/17: Potassium is normal. BUN/creatinine 26/1.1. 06/19: Creatinine is on baseline. Acute hypoxic respiratory failure due to pulmonary overload/edema and pneumonia: At 1 time patient was on 8 to 10 L of oxygen and Airvo. Patient was diuresed and treated with antibiotics for pneumonia. Currently pulse ox 94 to 97% on room air. Patient weaned off of the oxygen. Echo showed normal EF but was still very limited study Hypovolemic hyponatremia ? Secondary to dehydration patient is on IV fluid with subsequent monitoring of electrolyte 06/13:? Patient hyponatremia resolved. Serum sodium level 137. Patient has bilateral leg swelling., Yesterday, he refused for venous duplex. He complained of the leg pain and leg swelling. On IV Lasix, the dose increased. 06/14: Generalized legs and arms edema is better on Lasix 40 IV twice daily 06/15: Patient might have low BP from Lasix. His baseline is also around 110s. Lasix was discontinued. Venous duplex was limited yesterday due to patient intolerance but right lower extremity veins did not show evidence of DVT 06/16: Patient is maintaining his blood pressure 114/67. 3. Recent COVID 19 infection with secondary bacterial infection as mentioned above ? did continue with symptom management 06/13: Discontinue the COVID isolation. Patient got the symptoms of COVID including cough generalized weakness around [place] time and New Year's Madeleine. 4. Diarrhea ? CT of the abdomen did show depressed colon with air-fluid levels plan is to treat symptomatically 06/12: No BM today. 06/13: Diarrhea has resolved. 5. Hypokalemia -Corrected per protocol 06/14: Patient also had hypophosphatemia therefore on Neutra-Phos. 6. Bilateral lower lobe patchy consolidative airspace disease questionable pneumonia. ? Given patient immunosuppressive state patient was started on antibiotic therapy 7. Multiple myeloma ? Patient is on Revlimid and follows with Dr. Roberts as outpatient 06/18: Revlimid on hold after discussion with Dr. Kelechi Roberts. 8. COPD ? Currently not in exacerbation aerosol treatment as needed 9. Class II obesity with BMI of 35 kg/m? ? Complicating care weight loss advised 06/12: Patient requires 3 people assist for standing or ambulate. 10. Physical deconditioning ? Requested for PT OT eval and dialysis social worker to assist with discharge planning 11. Nonspecific nodule measuring 1 cm in the left adrenal gland -Plan is for patient to undergo subsequent outpatient evaluation with either non-contrast adrenal CT or chemical-shift adrenal MRI follow-up study. 12. DVT prophylaxis ?06/12: Platelet count 62K. Has chronic thrombocytopenia, B12 61 - 78,000. 100 55K on admission. Heparin subcu has been discontinued since. Clinical Impression(s) from Imaging Studies CTPA 06/15/2024 Right pulmonary embolism. No arterial dissection. Bibasilar consolidations, right more than left. Chest X-Ray 06/09/24 20:05 IMPRESSION: Patchy bibasilar pulmonary opacities may be atelectasis, scarring, or perhaps pneumonia. Electronically Signed: Rai VLisbet Agrawal DO at 20:22 EST , Abdomen/Pelvis CT 06/09/24 21:28 IMPRESSION: 1. Postoperative changes in the interval wall with associated hernia repair. Low-attenuation collection in the anterior abdominal wall measures up to 1.2 cm in thickness and may be seroma or chronic hematoma. 2. Patchy consolidative airspace disease in the visualized lower lobes may be pneumonia. 3. Nonspecific nodule measuring 1 cm in the left adrenal gland. ACR White Paper guidelines (Renata et al. JACR 2017; 14(8):8788-5907) recommend a low dose, non-contrast adrenal CT or chemical-shift adrenal MRI follow-up study. 4. Colorectal anastomosis identified. 5. The colon is mostly decompressed with air fluid levels identified. No small bowel obstruction. This would correlate with a diarrheal illness. No focal or diffuse inflammatory change. Electronically Signed: Rai CalderonLisbet Agrawal DO at 22:38 EST , Venous Doppler Study 06/12/24 10:56 Interpretation Summary Deep veins of the right lower extremity are patent and compressible segmentally. There is no evidence of right lower extremity deep vein thrombosis. Limited study due to patient intolerance Ordering Physician: Manjit Esposito Performed By: Yana Elam, SAJI, RVT Chest X-Ray 06/14/24 19:20 IMPRESSION: Right upper and bilateral lower lobe infiltrate. Electronically Signed: Jj Nesbitt MD at 19:56 EST , Charges/Coding Visit Charges Inpatient E&M: 36826 Subs Hosp L2
--- NOTE | 2024-06-21 14:38 | CHAPLAIN ---
Type of Pastoral Visit ___ Initial Visit _x__ Follow-up Visit ___ On-call Visit ___ General Patient Visit ___ Spiritual Assessment ___ Family Conference ___ Bereavement ___ Rapid Response ___ Code Blue ___ Other (describe below) Pastoral Care Referral From _x__ Patient ___ Family ___ Nurse ___ Physician ___ Paunch Trimmer ___ Cae Engineer ___ Other (describe below) Sacrament/Intervention _x__ Active listening ___ Anointing ___ Jehovah'S Witness ___ Bereavement ___ Communion _x__ Eleni exploration ___ _x__ Life review _x__ Prayer ___ Reconciliation ___ Sacrament of Sick _x__ Supportive presence ___ Wedding ___ Other (describe below) Pastoral Comments longer visit with this patient who is quick to talk and to give life review; pt attaches meaning through eleni to his journey; pt has concern for others and expresses how he can assist people in eleni and emotional support; pt is hoping for progress which includes a transfer to a rehab facility soon; 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
[2024-06-21 17:28] VITALS: BP 133/61; PULSE 96; RESP 19; TEMP 36.4; O2SAT 99
[2024-06-21 21:05] VITALS: BP 102/57; PULSE 95; RESP 20; TEMP 37.1; O2SAT 95
[2024-06-21] MEDS: 0.9% Saline Lock 10 ML Syringe IV (22:40)
[2024-06-22] VITALS (7 sets, daily range): BP systolic 102–136; BP diastolic 50–83; PULSE 85–89; RESP 14–19; TEMP 36.3–36.9; O2SAT 94–97
[2024-06-22 05:12] LABS: Absolute Lymphocyte Count 0.75 X10^3/uL (0.83-4.51); Absolute Neutrophil Count 1.7 X10^3/uL (2.0-7.7); Basophil# 0.03 X10^3/uL; Eosinophil# 0.12 X10^3/uL; Eosinophils% 3.9 % (0-5); Hematocrit 27.7 % (40-54); Hemoglobin 9.1 g/dL (13.0-16.5); Lymphocyte # 0.75 X10^3/ul (0.83-4.51); Lymphocyte % 24.4 % (19-41); Mean Corp Hgb Conc 32.9 g/dL (32-36); Mean Corpuscular Hgb 32.7 pg (27.0-32.0); Mean Corpuscular Volume 99.6 fL (80-94); Monocyte# 0.45 X10^3/uL; Monocyte% 14.6 % (0-10); NRBC Flagged by Analyzer 0 % (0-5); Neutrophil # 1.71 X10^3/uL (2.7-7.7); Neutrophil % 55.5 % (47-70); POSITIVE COUNT YES; RBC Distribution Width CV 13.5 % (11.6-14.6); RBC Distribution Width SD 48.8 fl (35.1-43.9); Red Blood Count 2.78 M/mm3 (4.6-6.2); White Blood Count 3.1 K/mm3 (4.4-11.0)
[2024-06-22 05:31] LABS: Differential Indicated SCAN CRITERIA MET; Platelet Count 46 K/mm3 (150-450)
[2024-06-22 05:33] LABS: Anion Gap 6 (5-15); BUN 18 mg/dL (7-18); Calcium,Total 8.6 mg/dL (8.5-10.1); Chloride 106 mmol/L (98-107); Creatinine, Serum 0.86 mg/dL (0.70-1.30); EST Glomerular Filtration Rate 93 mL/min (>60); Est Glom Filt Rate - Afr Amer 112 mL/min (>60); Estimated Creatinine Clearance 85.51 ml/min; Glucose 161 mg/dL (74-106); Potassium 4.2 mmol/L (3.5-5.1); Sodium Level 135 mmol/L (136-145)
[2024-06-22] MEDS: Na Biphos/Potassium Phosphate PACKET 1 PACKET PO ×3 (05:58→21:18)
[2024-06-22 07:48] LABS: Platelet Estimate MKD DEC (ADEQ)
[2024-06-22 07:49] LABS: Anisocytosis 2+; Red Cell Morphology N CHROM NORMAL (NORM C&C)
--- NOTE | 2024-06-22 10:31 | PCM.PN.HOSP ---
Reason for Visit Reason for Visit: Diagnoses Sepsis, unspecified organism (06/09/24) Dehydration (06/09/24) Hypo-osmolality and hyponatremia (06/09/24) Other pulmonary embolism without acute cor pulmonale (06/09/24) Respiratory failure, unspecified with hypoxia (06/09/24) Acute kidney failure, unspecified (06/09/24) Diarrhea, unspecified (06/09/24) Weakness (06/09/24) COVID-19 (06/09/24) Subjective Subjective Patient is a 73-year-old gentleman with history of multiple myeloma who was diagnosed with COVID a week prior to his admission presented with progressive generalized weakness. Patient has had a protracted hospital stay complicated by sepsis secondary to pneumonia as well as VTE and subsequent complications with bleeding. Objective Data Objective Data Vital Signs: Vital Signs Temp Pulse Resp BP Pulse Ox O2 Del Method O2 Flow Rate 98.4 F 85 14 136/66 H 96 Room Air 2 06/22/24 03:00 06/22/24 03:00 06/22/24 03:00 06/22/24 03:00 06/22/24 07:06 06/22/24 07:06 06/21/24 09:07 FiO2 55 06/15/24 16:19 Oxygen Flow Rate (L/min) 2 Oxygen Delivery Method Room Air Weight: 101.4 kg Body Mass Index (BMI) 34.9 Intake & Output: Intake and Output for Last 24 Hours 06/20/24 06/21/24 06/22/24 23:59 23:59 23:59 Intake Total 470 / 470 300 / 400 200 / 200 Output Total 1400 / 1400 1090 / 1190 500 / 500 Balance -930 / -930 -790 / -790 -300 / -300 Lab / Micro Data 06/22/24 04:46 06/22/24 04:46 Labs: Laboratory Results - last 24 hr 06/21/24 05:58: Diff Path Review Reviewed 06/22/24 04:46: WBC 3.1 L, RBC 2.78 L, Hgb 9.1 L, Hct 27.7 L, MCV 99.6 H, MCH 32.7 H, MCHC 32.9, RDW Std Deviation 48.8 H, RDW Coeff of Chetan 13.5, Plt Count 46 L*, MPV 13.0 H, Immature Gran % (Auto) 0.600, Neut % (Auto) 55.5, Lymph % (Auto) 24.4, [place] % (Auto) 14.6 H, Eos % (Auto) 3.9, Baso % (Auto) 1.0, Absolute Neuts (auto) 1.7 L, Absolute Lymphs (auto) 0.75 L, Nucleated RBC % 0, Platelet Estimate MKD DEC, RBC Morphology N CHROM, Anisocytosis 2+, Sodium 135 L, Potassium 4.2, Chloride 106, Carbon Dioxide 24.0, Anion Gap 6, BUN 18, Creatinine 0.86, Estim Creat Clear Calc 85.51, Est GFR (MDRD) Af Amer 112, Est GFR (MDRD) Non-Af 93, BUN/Creatinine Ratio 21.0 H, Glucose 161 H, Calcium 8.6 Micro: Microbiology 06/15/24 10:18 Blood Culture (Wb) - Anticubital Right Blood Culture - Final No growth in 5 days. 06/15/24 10:20 Blood Culture (Wb) - Right Hand Blood Culture - Final No growth in 5 days. 06/15/24 12:45 Urine Catheter - Bernard Urine Culture - Final Klebsiella pneumoniae sp pneum Enterococcus faecalis 06/15/24 12:34 Nasal Secretion MRSA (PCR) - Final 06/15/24 10:10 Mucosa - Nasopharyngeal Respiratory Panel (PCR) - Final 06/15/24 12:45 Urine Catheter - Bernard Legionella Antigen - Final 06/15/24 12:45 Urine Catheter - Bernard Streptococcus pneumoniae Antigen (M - Final 06/09/24 19:45 Blood Culture (Wb) - Anticubital Left Blood Culture - Final No growth in 5 days. 06/09/24 20:08 Blood Culture (Wb) - Anticubital Left Blood Culture - Final No growth in 5 days. 06/09/24 20:05 Urine, Catheterized Urine Culture - Final Enterococcus faecalis 06/10/24 09:15 Stool Clostridioides difficile (PCR) - Final 06/09/24 19:48 Mucosa - Nose SARS-CoV-2, Influenza & RSV (PCR) - Final SARS-CoV-2 (COVID 19 PCR) Physical Exam Narrative GENERAL: cooperative HEENT: Atraumatic; normocephalic EYES; Anicteric, Normal Conjunctiva NECK; supple, normal thyroid, RESPIRATORY: Diminished to auscultation CARDIOVASCULAR: Regular S1 S2, GI: soft, normoactive bowel sounds, : No Renal angle tenderness; EXTREMITIES: No edema, no clubbing, MUSCULOSKELETAL: no muscle wasting NEURO: Awake; no lateralizing signs. SKIN: Bruises involving upper extremities PSYCH; Flat affect Assessment & Plan Assessment/Plan (1) COVID: (2) Generalized weakness: (3) Diarrhea: (4) Acute kidney injury: (5) Acute hyponatremia: (6) Dehydration: PLAN: Plan Patient is a 73-year-old gentleman with history of multiple myeloma who was diagnosed with COVID a week prior to his admission presented with progressive generalized weakness. Patient has had a protracted hospital stay complicated by sepsis secondary to pneumonia as well as VTE and subsequent complications with bleeding. 1. Sepsis ? Resolved this was secondary to healthcare acquired pneumonia treated appropriately 2. Acute pulmonary embolism ? CTA did show RUL and RLL lobar and segmental branches PE. Patient was initially managed with heparin had to be discontinued given single and thrombocytopenia. Patient was offered IVC filter after discussion with his oncologist as well as primary care physician patient declined. Case was discussed with Dr. Roberts patient's oncologist on 06/22/2024 decision was made to start patient on therapeutic dose of Lovenox given its short half-life. Patient had already been started on apixaban this was discontinued following discussion with oncology 3. Acute kidney injury ? Admitted to a monitored bed patient started on IV hydration with subsequent monitoring of electrolyte 4. Hypovolemic hyponatremia ? Secondary to dehydration patient is on IV fluid with subsequent monitoring of electrolyte ? 06/22/2024. 5. COVID 19 infection ? Patient responded symptom management. 6. Multiple myeloma ? Patient is on Revlimid and follows with Dr. Roberts as outpatient. ? 06/22/2024 Case was discussed with Dr. Doherty decision was made to discontinue Revlimid 7. COPD ? Currently not in exacerbation aerosol treatment as needed 8. Class II obesity with BMI of 26 ? Complicating care weight loss advised 9. Physical deconditioning ? Requested for PT OT eval and bilingual social worker to assist with discharge planning 10. Nonspecific nodule measuring 1 cm in the left adrenal gland -Plan is for patient to undergo subsequent outpatient evaluation with either non-contrast adrenal CT or chemical-shift adrenal MRI follow-up study. 11. Anemia ? Secondary to chronic disorder as well as patient underlying multiple myeloma monitoring H&H and transfuse if patient becomes symptomatic or hemoglobin falls below 7 12. Thrombocytopenia ? Thought to be a side effect of patient Revlimid and subsequent use of heparin both medications discontinued. Subsequently monitoring count patient platelet count as of 06/22/2024 was 46 Time spent in the patient's overall evaluation,decision-making process, review of diagnostic data, adjustment of management, discussion with other providers, nursing nursing and ancillary staff involved in patient's care documentation, 50 Minutes Charges/Coding Visit Charges Inpatient E&M: 24212 Subs Hosp L3
[2024-06-22] MEDS: Budesonide/Formoterol Fumarate 10.2 GM Inhaler 2 PUFF INHALATION (10:48)
[2024-06-22] MEDS: Acyclovir 200 MG Capsule 400 MG PO ×2 (10:50→21:18)
[2024-06-22] MEDS: Metoprolol(XL)Succ 25 MG Tablet PO (10:50)
[2024-06-22] MEDS: Potassium Chloride Oral Tablet 20 MEQ PO ×2 (10:51→16:40)
[2024-06-22] MEDS: Pantoprazole Sodium 40 MG Tablet PO (10:51)
[2024-06-22] MEDS: Menthol/Lanolin/Calamine/Znox 113 GM Tube 1 APPLIC TOPICAL ×2 (10:51→21:17)
[2024-06-22] MEDS: APIXABAN 5 MG TABLET 10 MG PO (13:51)
[2024-06-22] MEDS: 0.9% Saline Lock 10 ML Syringe IV (16:39)
[2024-06-23] VITALS (8 sets, daily range): BP systolic 105–140; BP diastolic 45–73; PULSE 84–95; RESP 16–20; TEMP 36–36.7; O2SAT 92–97
[2024-06-23] MEDS: Enoxaparin 100 MG/ML Syringe SC ×2 (05:22→17:01)
[2024-06-23] MEDS: Na Biphos/Potassium Phosphate PACKET 1 PACKET PO ×3 (05:23→21:29)
[2024-06-23 05:52] LABS: Absolute Lymphocyte Count 0.59 X10^3/uL (0.83-4.51); Absolute Neutrophil Count 1.2 X10^3/uL (2.0-7.7); Basophil# 0.02 X10^3/uL; Basophil% 0.8 % (0-1); Eosinophil# 0.13 X10^3/uL; Eosinophils% 5.1 % (0-5); Hematocrit 26.3 % (40-54); Hemoglobin 8.9 g/dL (13.0-16.5); Lymphocyte # 0.59 X10^3/ul (0.83-4.51); Lymphocyte % 23.2 % (19-41); Mean Corp Hgb Conc 33.8 g/dL (32-36); Mean Corpuscular Hgb 33.1 pg (27.0-32.0); Mean Corpuscular Volume 97.8 fL (80-94); Mean Platelet Vol. 10.8 fl (6.2-12.0); Monocyte# 0.58 X10^3/uL; Monocyte% 22.8 % (0-10); NRBC Flagged by Analyzer 0 % (0-5); Neutrophil # 1.21 X10^3/uL (2.7-7.7); Neutrophil % 47.7 % (47-70); POSITIVE COUNT YES; POSITIVE DIFFERENTIAL YES; Platelet Count 62 K/mm3 (150-450); RBC Distribution Width CV 13.5 % (11.6-14.6); RBC Distribution Width SD 47.1 fl (35.1-43.9); Red Blood Count 2.69 M/mm3 (4.6-6.2); White Blood Count 2.5 K/mm3 (4.4-11.0)
[2024-06-23 06:28] LABS: Anion Gap 6 (5-15); BUN 18 mg/dL (7-18); BUN/Creat Ratio 22.1 RATIO (10-20); Calcium,Total 8.5 mg/dL (8.5-10.1); Chloride 107 mmol/L (98-107); Creatinine, Serum 0.82 mg/dL (0.70-1.30); EST Glomerular Filtration Rate 98 mL/min (>60); Est Glom Filt Rate - Afr Amer 119 mL/min (>60); Estimated Creatinine Clearance 89.68 ml/min; Glucose 148 mg/dL (74-106); Magnesium 1.7 mg/dL (1.6-2.6); Sodium Level 137 mmol/L (136-145)
[2024-06-23 06:37] LABS: Phosphorus 2.9 mg/dL (2.5-4.9)
--- NOTE | 2024-06-23 07:46 | PCM.PN.HOSP ---
Reason for Visit Reason for Visit: Diagnoses Sepsis, unspecified organism (06/09/24) Dehydration (06/09/24) Hypo-osmolality and hyponatremia (06/09/24) Other pulmonary embolism without acute cor pulmonale (06/09/24) Respiratory failure, unspecified with hypoxia (06/09/24) Acute kidney failure, unspecified (06/09/24) Diarrhea, unspecified (06/09/24) Weakness (06/09/24) COVID-19 (06/09/24) Subjective Subjective Patient seen much more interactive and cooperative compared to previous day. Platelet count up to 62. Case was discussed with Dr. Hickman the day prior patient was transition from apixaban to enoxaparin discussed with patient he is okay with the change Objective Data Objective Data Vital Signs: Vital Signs Temp Pulse Resp BP Pulse Ox O2 Del Method O2 Flow Rate 97.4 F L 84 16 118/61 97 Room Air 2 06/23/24 02:48 06/23/24 02:48 06/23/24 02:48 06/23/24 02:48 06/23/24 02:48 06/23/24 02:48 06/21/24 09:07 FiO2 55 06/15/24 16:19 Oxygen Flow Rate (L/min) 2 Oxygen Delivery Method Room Air Weight: 101.4 kg Body Mass Index (BMI) 34.9 Intake & Output: Intake and Output for Last 24 Hours 06/21/24 06/22/24 06/23/24 23:59 23:59 23:59 Intake Total 300 / 400 495 / 495 381 / 381 Output Total 1090 / 1190 1070 / 1070 50 / 50 Balance -790 / -790 -575 / -575 331 / 331 Lab / Micro Data 06/23/24 05:29 06/23/24 05:29 Labs: Laboratory Results - last 24 hr 06/22/24 04:46: Diff Path Review September wade, Platelet Estimate MKD DEC, RBC Morphology N CHROM, Anisocytosis 2+ 06/23/24 05:29: WBC 2.5 L, RBC 2.69 L, Hgb 8.9 L, Hct 26.3 L, MCV 97.8 H, MCH 33.1 H, MCHC 33.8, RDW Std Deviation 47.1 H, RDW Coeff of Chetan 13.5, Plt Count 62 L, MPV 10.8, Immature Gran % (Auto) 0.400, Neut % (Auto) 47.7, Lymph % (Auto) 23.2, Early % (Auto) 22.8 H, Eos % (Auto) 5.1 H, Baso % (Auto) 0.8, Absolute Neuts (auto) 1.2 L, Absolute Lymphs (auto) 0.59 L, Nucleated RBC % 0, Sodium 137, Potassium 4.0, Chloride 107, Carbon Dioxide 24.0, Anion Gap 6, BUN 18, Creatinine 0.82, Estim Creat Clear Calc 89.68, Est GFR (MDRD) Af Amer 119, Est GFR (MDRD) Non-Af 98, BUN/Creatinine Ratio 22.1 H, Glucose 148 H, Calcium 8.5, Phosphorus 2.9, Magnesium 1.7 Micro: Microbiology 06/15/24 10:18 Blood Culture (Wb) - Anticubital Right Blood Culture - Final No growth in 5 days. 06/15/24 10:20 Blood Culture (Wb) - Right Hand Blood Culture - Final No growth in 5 days. 06/15/24 12:45 Urine Catheter - Bernard Urine Culture - Final Klebsiella pneumoniae sp pneum Enterococcus faecalis 06/15/24 12:34 Nasal Secretion MRSA (PCR) - Final 06/15/24 10:10 Mucosa - Nasopharyngeal Respiratory Panel (PCR) - Final 06/15/24 12:45 Urine Catheter - Bernard Legionella Antigen - Final 06/15/24 12:45 Urine Catheter - Bernard Streptococcus pneumoniae Antigen (M - Final 06/09/24 19:45 Blood Culture (Wb) - Anticubital Left Blood Culture - Final No growth in 5 days. 06/09/24 20:08 Blood Culture (Wb) - Anticubital Left Blood Culture - Final No growth in 5 days. 06/09/24 20:05 Urine, Catheterized Urine Culture - Final Enterococcus faecalis 06/10/24 09:15 Stool Clostridioides difficile (PCR) - Final 06/09/24 19:48 Mucosa - Nose SARS-CoV-2, Influenza & RSV (PCR) - Final SARS-CoV-2 (COVID 19 PCR) Physical Exam Narrative GENERAL: cooperative HEENT: Atraumatic; normocephalic EYES; Anicteric, Normal Conjunctiva NECK; supple, normal thyroid, RESPIRATORY: Diminished to auscultation CARDIOVASCULAR: Regular S1 S2, GI: soft, normoactive bowel sounds, : No Renal angle tenderness; EXTREMITIES: No edema, no clubbing, MUSCULOSKELETAL: no muscle wasting NEURO: Awake; no lateralizing signs. SKIN: Bruises involving upper extremities PSYCH; Flat affect Assessment & Plan Assessment/Plan (1) COVID: (2) Generalized weakness: (3) Diarrhea: (4) Acute kidney injury: (5) Acute hyponatremia: (6) Dehydration: PLAN: Plan Patient is a 73-year-old gentleman with history of multiple myeloma who was diagnosed with COVID a week prior to his admission presented with progressive generalized weakness. Patient has had a protracted hospital stay complicated by sepsis secondary to pneumonia as well as VTE and subsequent complications with bleeding. 1. Sepsis ? Resolved this was secondary to healthcare acquired pneumonia treated appropriately 2. Acute pulmonary embolism ? CTA did show RUL and RLL lobar and segmental branches PE. Patient was initially managed with heparin had to be discontinued given single and thrombocytopenia. Patient was offered IVC filter after discussion with his oncologist as well as primary care physician patient declined. Case was discussed with Dr. Roberts patient's oncologist on 06/22/2024 decision was made to start patient on therapeutic dose of Lovenox given its short half-life. Patient had already been started on apixaban this was discontinued following discussion with oncology ? 06/23/2024; Platelet count up to 62. Case was discussed with Dr. Hickman the day prior patient was transition from apixaban to enoxaparin discussed with patient he is okay with the change 3. Acute kidney injury ? Admitted to a monitored bed patient started on IV hydration with subsequent monitoring of electrolyte lying ? 06/23/2024; LUKE resolved 4. Hypovolemic hyponatremia ? Secondary to dehydration patient is on IV fluid with subsequent monitoring of electrolyte ? 06/22/2024. Hyponatremia resolved 5. COVID 19 infection ? Patient responded symptom management. 6. Multiple myeloma ? Patient is on Revlimid and follows with Dr. Roberts as outpatient. ? 06/22/2024 Case was discussed with Dr. Doherty decision was made to discontinue Revlimid 7. COPD ? Currently not in exacerbation aerosol treatment as needed 8. Class II obesity with BMI of 26 ? Complicating care weight loss advised 9. Physical deconditioning ? Requested for PT OT eval and social science professor to assist with discharge planning 10. Nonspecific nodule measuring 1 cm in the left adrenal gland -Plan is for patient to undergo subsequent outpatient evaluation with either non-contrast adrenal CT or chemical-shift adrenal MRI follow-up study. 11. Anemia ? Secondary to chronic disorder as well as patient underlying multiple myeloma monitoring H&H and transfuse if patient becomes symptomatic or hemoglobin falls below 7 12. Thrombocytopenia ? Thought to be a side effect of patient Revlimid and subsequent use of heparin both medications discontinued. Subsequently monitoring count patient platelet count as of 06/22/2024 was 46 ? 06/23/2024; platelet count up to 62 Time spent in the patient's overall evaluation,decision-making process, review of diagnostic data, adjustment of management, discussion with other providers, nursing nursing and ancillary staff involved in patient's care documentation, 40 Minutes Charges/Coding Visit Charges Inpatient E&M: 22061 Subs Hosp L2
[2024-06-23] MEDS: Potassium Chloride Oral Tablet 20 MEQ PO ×2 (09:44→17:01)
[2024-06-23] MEDS: Budesonide/Formoterol Fumarate 10.2 GM Inhaler 2 PUFF INHALATION ×2 (09:45→21:29)
[2024-06-23] MEDS: Menthol/Lanolin/Calamine/Znox 113 GM Tube 1 APPLIC TOPICAL (09:48)
[2024-06-23] MEDS: Metoprolol(XL)Succ 25 MG Tablet PO (09:49)
[2024-06-23] MEDS: Acyclovir 200 MG Capsule 400 MG PO ×2 (09:49→21:29)
[2024-06-23] MEDS: Pantoprazole Sodium 40 MG Tablet PO (09:49)
[2024-06-23 14:25] LABS: Pathologist Review Reviewed
[2024-06-23] MEDS: 0.9% Saline Lock 10 ML Syringe IV (21:30)
--- NOTE | 2024-06-23 22:19 | NURSING ---
Patient refusing care, does not want RN to turn or reposition patient. Gets very agitated with RN with basic care needs. States he is sick of being here and wants to be left alone.
[2024-06-24 03:20] VITALS: BP 108/55; PULSE 89; RESP 18; TEMP 35.9; O2SAT 95
[2024-06-24] MEDS: Enoxaparin 100 MG/ML Syringe SC ×2 (06:32→17:11)
[2024-06-24 07:23] VITALS: O2SAT 93
--- NOTE | 2024-06-24 08:05 | PCM.PN.HOSP ---
Reason for Visit Reason for Visit: Diagnoses Sepsis, unspecified organism (06/09/24) Dehydration (06/09/24) Hypo-osmolality and hyponatremia (06/09/24) Other pulmonary embolism without acute cor pulmonale (06/09/24) Respiratory failure, unspecified with hypoxia (06/09/24) Acute kidney failure, unspecified (06/09/24) Diarrhea, unspecified (06/09/24) Weakness (06/09/24) COVID-19 (06/09/24) Subjective Subjective Patient seen had a relatively uneventful night. A.m. labs still pending. Objective Data Objective Data Vital Signs: Vital Signs Temp Pulse Resp BP Pulse Ox O2 Del Method O2 Flow Rate 96.7 F L 89 18 108/55 L 95 Room Air 2 06/24/24 03:20 06/24/24 03:20 06/24/24 03:20 06/24/24 03:20 06/24/24 03:20 06/24/24 03:20 06/21/24 09:07 FiO2 55 06/15/24 16:19 Oxygen Flow Rate (L/min) 2 Oxygen Delivery Method Room Air Weight: 101.4 kg Body Mass Index (BMI) 34.9 Intake & Output: Intake and Output for Last 24 Hours 06/22/24 06/23/24 06/24/24 23:59 23:59 23:59 Intake Total 495 / 495 881 / 1031 150 / 150 Output Total 1070 / 1070 750 / 750 600 / 600 Balance -575 / -575 131 / 281 -450 / -450 Lab / Micro Data 06/23/24 05:29 06/23/24 05:29 Micro: Microbiology 06/15/24 10:18 Blood Culture (Wb) - Anticubital Right Blood Culture - Final No growth in 5 days. 06/15/24 10:20 Blood Culture (Wb) - Right Hand Blood Culture - Final No growth in 5 days. 06/15/24 12:45 Urine Catheter - Benrard Urine Culture - Final Klebsiella pneumoniae sp pneum Enterococcus faecalis 06/15/24 12:34 Nasal Secretion MRSA (PCR) - Final 06/15/24 10:10 Mucosa - Nasopharyngeal Respiratory Panel (PCR) - Final 06/15/24 12:45 Urine Catheter - Bernard Legionella Antigen - Final 06/15/24 12:45 Urine Catheter - Bernard Streptococcus pneumoniae Antigen (M - Final 06/09/24 19:45 Blood Culture (Wb) - Anticubital Left Blood Culture - Final No growth in 5 days. 06/09/24 20:08 Blood Culture (Wb) - Anticubital Left Blood Culture - Final No growth in 5 days. 06/09/24 20:05 Urine, Catheterized Urine Culture - Final Enterococcus faecalis 06/10/24 09:15 Stool Clostridioides difficile (PCR) - Final 06/09/24 19:48 Mucosa - Nose SARS-CoV-2, Influenza & RSV (PCR) - Final SARS-CoV-2 (COVID 19 PCR) Physical Exam Narrative GENERAL: cooperative HEENT: Atraumatic; normocephalic EYES; Anicteric, Normal Conjunctiva NECK; supple, normal thyroid, RESPIRATORY: Diminished to auscultation CARDIOVASCULAR: Regular S1 S2, GI: soft, normoactive bowel sounds, : No Renal angle tenderness; EXTREMITIES: No edema, no clubbing, MUSCULOSKELETAL: no muscle wasting NEURO: Awake; no lateralizing signs. SKIN: Bruises involving upper extremities PSYCH; Flat affect Assessment & Plan Assessment/Plan (1) COVID: (2) Generalized weakness: (3) Diarrhea: (4) Acute kidney injury: (5) Acute hyponatremia: (6) Dehydration: PLAN: Plan Patient is a 73-year-old gentleman with history of multiple myeloma who was diagnosed with COVID a week prior to his admission presented with progressive generalized weakness. Patient has had a protracted hospital stay complicated by sepsis secondary to pneumonia as well as VTE and subsequent complications with bleeding. 1. Sepsis ? Resolved this was secondary to healthcare acquired pneumonia treated appropriately ? 06/24/2024; sepsis resolved 2. Acute pulmonary embolism ? CTA did show RUL and RLL lobar and segmental branches PE. Patient was initially managed with heparin had to be discontinued given single and thrombocytopenia. Patient was offered IVC filter after discussion with his oncologist as well as primary care physician patient declined. Case was discussed with Dr. Roberts patient's oncologist on 06/22/2024 decision was made to start patient on therapeutic dose of Lovenox given its short half-life. Patient had already been started on apixaban this was discontinued following discussion with oncology ? 06/23/2024; Platelet count up to 62. Case was discussed with Dr. Vick the day prior patient was transition from apixaban to enoxaparin discussed with patient he is okay with the change ? 06/24/2024; patient has tolerated Lovenox well so 3. Acute kidney injury ? Admitted to a monitored bed patient started on IV hydration with subsequent monitoring of electrolyte lying ? 06/23/2024; LUKE resolved 4. Hypovolemic hyponatremia ? Secondary to dehydration patient is on IV fluid with subsequent monitoring of electrolyte ? 06/22/2024. Hyponatremia resolved 5. COVID 19 infection ? Patient responded symptom management. 6. Multiple myeloma ? Patient is on Revlimid and follows with Dr. Roberts as outpatient. ? 06/22/2024 Case was discussed with Dr. Doherty decision was made to discontinue Revlimid 7. COPD ? Currently not in exacerbation aerosol treatment as needed 8. Class II obesity with BMI of 26 ? Complicating care weight loss advised 9. Physical deconditioning ? Requested for PT OT eval and social worker to assist with discharge planning ? 06/24/2024; insurance precertification pending prior to patient being transferred to longterm facility 10. Nonspecific nodule measuring 1 cm in the left adrenal gland -Plan is for patient to undergo subsequent outpatient evaluation with either non-contrast adrenal CT or chemical-shift adrenal MRI follow-up study. 11. Anemia ? Secondary to chronic disorder as well as patient underlying multiple myeloma monitoring H&H and transfuse if patient becomes symptomatic or hemoglobin falls below 7 12. Thrombocytopenia ? Thought to be a side effect of patient Revlimid and subsequent use of heparin both medications discontinued. Subsequently monitoring count patient platelet count as of 06/22/2024 was 46 ? 06/23/2024; platelet count up to 62 Time spent in the patient's overall evaluation,decision-making process, review of diagnostic data, adjustment of management, discussion with other providers, nursing nursing and ancillary staff involved in patient's care documentation, 35 Minutes Charges/Coding Visit Charges Inpatient E&M: 21721 Subs Hosp L2
[2024-06-24 09:20] VITALS: BP 100/62; PULSE 84; RESP 19; TEMP 37.1; O2SAT 95
[2024-06-24 09:48] VITALS: PULSE 88
[2024-06-24] MEDS: Acyclovir 200 MG Capsule 400 MG PO ×2 (09:48→20:59)
[2024-06-24] MEDS: Pantoprazole Sodium 40 MG Tablet PO (09:48)
[2024-06-24] MEDS: Metoprolol(XL)Succ 25 MG Tablet PO (09:48)
[2024-06-24] MEDS: Budesonide/Formoterol Fumarate 10.2 GM Inhaler 2 PUFF INHALATION ×2 (09:49→21:00)
[2024-06-24] MEDS: Menthol/Lanolin/Calamine/Znox 113 GM Tube 1 APPLIC TOPICAL ×2 (09:50→20:58)
[2024-06-24] MEDS: Potassium Chloride Oral Tablet 20 MEQ PO ×2 (09:50→17:05)
[2024-06-24] MEDS: Na Biphos/Potassium Phosphate PACKET 1 PACKET PO ×2 (13:31→20:59)
[2024-06-24 15:20] VITALS: BP 115/60; PULSE 80; RESP 17; TEMP 36.6; O2SAT 96
[2024-06-24] MEDS: 0.9% Saline Lock 10 ML Syringe IV (20:41)
[2024-06-24 21:19] VITALS: BP 91/47; PULSE 78; RESP 16; TEMP 36.4; O2SAT 96
[2024-06-25 03:00] VITALS: BP 100/51; PULSE 92; RESP 17; TEMP 36.3; O2SAT 95
--- NOTE | 2024-06-25 06:16 | NURSING ---
Per Karuna from lab, pt stated earlier this AM that it wasn't a good time to draw his labs. Apparently Karuna told pt she would be back in after an hour to reevaluate. This RN accompanied Karuna to pt room for second attempt at obtaining AM labs at this time. Patient declines to have labs drawn at this time. States he doesn't see the point. States he is being transferred out today. This RN explained that we are still awaiting insurance approval for transfer and generally this doesn't happen on Wednesday. Pt expresses that we've had difficulty drawing his labs. This RN offered to attempt to draw labs off of pt midline despite reports that it wouldn't draw yesterday. Pt also declined this, citing that the midline wouldn't draw previously. Primary RN made aware.
[2024-06-25] MEDS: Enoxaparin 100 MG/ML Syringe SC ×2 (06:25→17:06)
[2024-06-25] MEDS: Na Biphos/Potassium Phosphate PACKET 1 PACKET PO ×2 (06:25→21:21)
--- NOTE | 2024-06-25 07:19 | PN.HOSP_ITS ---
Reason for Visit Reason for Visit: Diagnoses Sepsis, unspecified organism (06/09/24) Dehydration (06/09/24) Hypo-osmolality and hyponatremia (06/09/24) Other pulmonary embolism without acute cor pulmonale (06/09/24) Respiratory failure, unspecified with hypoxia (06/09/24) Acute kidney failure, unspecified (06/09/24) Diarrhea, unspecified (06/09/24) Weakness (06/09/24) COVID-19 (06/09/24) Subjective Subjective Seen had a relatively uneventful night. Awaiting insurance precertification prior to transfer to care home facility. Patient refusing lab draws. Objective Data Objective Data Vital Signs: Vital Signs Temp Pulse Resp BP Pulse Ox O2 Del Method O2 Flow Rate 97.4 F L 92 17 100/51 L 95 Room Air 2 06/25/24 03:00 06/25/24 03:00 06/25/24 03:00 06/25/24 03:00 06/25/24 03:00 06/25/24 03:11 06/21/24 09:07 FiO2 55 06/15/24 16:19 Oxygen Flow Rate (L/min) 2 Oxygen Delivery Method Room Air Weight: 101.4 kg Body Mass Index (BMI) 34.9 Intake & Output: Intake and Output for Last 24 Hours 06/23/24 06/24/24 06/25/24 23:59 23:59 23:59 Intake Total 881 / 1031 510 / 510 240 / 240 Output Total 750 / 750 1800 / 1800 420 / 420 Balance 131 / 281 -1290 / -1290 -180 / -180 Lab / Micro Data 06/23/24 05:29 06/23/24 05:29 Labs: Laboratory Results - last 24 hr 06/22/24 04:46: Diff Path Review Reviewed Micro: Microbiology 06/15/24 10:18 Blood Culture (Wb) - Anticubital Right Blood Culture - Final No growth in 5 days. 06/15/24 10:20 Blood Culture (Wb) - Right Hand Blood Culture - Final No growth in 5 days. 06/15/24 12:45 Urine Catheter - Bernard Urine Culture - Final Klebsiella pneumoniae sp pneum Enterococcus faecalis 06/15/24 12:34 Nasal Secretion MRSA (PCR) - Final 06/15/24 10:10 Mucosa - Nasopharyngeal Respiratory Panel (PCR) - Final 06/15/24 12:45 Urine Catheter - Bernard Legionella Antigen - Final 06/15/24 12:45 Urine Catheter - Bernard Streptococcus pneumoniae Antigen (M - Final 06/09/24 19:45 Blood Culture (Wb) - Anticubital Left Blood Culture - Final No growth in 5 days. 06/09/24 20:08 Blood Culture (Wb) - Anticubital Left Blood Culture - Final No growth in 5 days. 06/09/24 20:05 Urine, Catheterized Urine Culture - Final Enterococcus faecalis 06/10/24 09:15 Stool Clostridioides difficile (PCR) - Final 06/09/24 19:48 Mucosa - Nose SARS-CoV-2, Influenza & RSV (PCR) - Final SARS-CoV-2 (COVID 19 PCR) Physical Exam Narrative GENERAL: cooperative HEENT: Atraumatic; normocephalic EYES; Anicteric, Normal Conjunctiva NECK; supple, normal thyroid, RESPIRATORY: Diminished to auscultation CARDIOVASCULAR: Regular S1 S2, GI: soft, normoactive bowel sounds, : No Renal angle tenderness; EXTREMITIES: No edema, no clubbing, MUSCULOSKELETAL: no muscle wasting NEURO: Awake; no lateralizing signs. SKIN: Bruises involving upper extremities PSYCH; Flat affect Assessment & Plan Assessment/Plan (1) COVID: (2) Generalized weakness: (3) Diarrhea: (4) Acute kidney injury: (5) Acute hyponatremia: (6) Dehydration: PLAN: Plan Patient is a 73-year-old gentleman with history of multiple myeloma who was diagnosed with COVID a week prior to his admission presented with progressive generalized weakness. Patient has had a protracted hospital stay complicated by sepsis secondary to pneumonia as well as VTE and subsequent complications with bleeding. 1. Sepsis ? Resolved this was secondary to healthcare acquired pneumonia treated appropriately ? 06/24/2024; sepsis resolved 2. Acute pulmonary embolism ? CTA did show RUL and RLL lobar and segmental branches PE. Patient was initially managed with heparin had to be discontinued given single and thrombocytopenia. Patient was offered IVC filter after discussion with his oncologist as well as primary care physician patient declined. Case was discussed with Dr. Roberts patient's oncologist on 06/22/2024 decision was made to start patient on therapeutic dose of Lovenox given its short half-life. Patient had already been started on apixaban this was discontinued following discussion with oncology ? 06/23/2024; Platelet count up to 62. Case was discussed with Dr. Hickman the day prior patient was transition from apixaban to enoxaparin discussed with patient he is okay with the change ? 06/24/2024; patient has tolerated Lovenox well so 3. Acute kidney injury ? Admitted to a monitored bed patient started on IV hydration with subsequent monitoring of electrolyte lying ? 06/23/2024; LUKE resolved 4. Hypovolemic hyponatremia ? Secondary to dehydration patient is on IV fluid with subsequent monitoring of electrolyte ? 06/22/2024. Hyponatremia resolved 5. COVID 19 infection ? Patient responded symptom management. 6. Multiple myeloma ? Patient is on Revlimid and follows with Dr. Roberts as outpatient. ? 06/22/2024 Case was discussed with Dr. Doherty decision was made to discontinue Revlimid 7. COPD ? Currently not in exacerbation aerosol treatment as needed 8. Class II obesity with BMI of 26 ? Complicating care weight loss advised 9. Physical deconditioning ? Requested for PT OT eval and social work associate to assist with discharge planning ? 06/24/2024; insurance precertification pending prior to patient being transferred to care home facility 10. Nonspecific nodule measuring 1 cm in the left adrenal gland -Plan is for patient to undergo subsequent outpatient evaluation with either non-contrast adrenal CT or chemical-shift adrenal MRI follow-up study. 11. Anemia ? Secondary to chronic disorder as well as patient underlying multiple myeloma monitoring H&H and transfuse if patient becomes symptomatic or hemoglobin falls below 7 12. Thrombocytopenia ? Thought to be a side effect of patient Revlimid and subsequent use of heparin both medications discontinued. Subsequently monitoring count patient platelet count as of 06/22/2024 was 46 ? 06/23/2024; platelet count up to 62 ? ; patient refusing lab draw Time spent in the patient's overall evaluation,decision-making process, review of diagnostic data, adjustment of management, discussion with other providers, nursing nursing and ancillary staff involved in patient's care documentation, 35 Minutes Charges/Coding Visit Charges Inpatient E&M: 64660 Subs Hosp L2
[2024-06-25 07:39] VITALS: O2SAT 94
[2024-06-25 08:30] VITALS: PULSE 90
[2024-06-25] MEDS: Acyclovir 200 MG Capsule 400 MG PO ×2 (08:30→21:21)
[2024-06-25] MEDS: Metoprolol(XL)Succ 25 MG Tablet PO (08:30)
[2024-06-25] MEDS: Menthol/Lanolin/Calamine/Znox 113 GM Tube 1 APPLIC TOPICAL ×2 (08:31→21:22)
[2024-06-25] MEDS: Potassium Chloride Oral Tablet 20 MEQ PO ×2 (08:31→17:05)
[2024-06-25] MEDS: Pantoprazole Sodium 40 MG Tablet PO (08:31)
[2024-06-25] MEDS: Budesonide/Formoterol Fumarate 10.2 GM Inhaler 2 PUFF INHALATION ×2 (08:32→21:21)
[2024-06-25 09:00] VITALS: BP 109/62; PULSE 90; RESP 17; TEMP 36.8; O2SAT 94
[2024-06-25 15:00] VITALS: BP 119/62; PULSE 88; RESP 17; TEMP 36.7; O2SAT 95
[2024-06-25 21:00] VITALS: BP 102/57; PULSE 83; RESP 16; TEMP 36.4; O2SAT 92
[2024-06-26 03:00] VITALS: BP 108/57; PULSE 89; RESP 20; TEMP 36.2; O2SAT 92
[2024-06-26] MEDS: Enoxaparin 100 MG/ML Syringe SC (05:50)
[2024-06-26] MEDS: Na Biphos/Potassium Phosphate PACKET 1 PACKET PO (05:50)
--- NOTE | 2024-06-26 07:49 | PN.HOSP_ITS ---
Reason for Visit Reason for Visit: Diagnoses Sepsis, unspecified organism (06/09/24) Dehydration (06/09/24) Hypo-osmolality and hyponatremia (06/09/24) Other pulmonary embolism without acute cor pulmonale (06/09/24) Respiratory failure, unspecified with hypoxia (06/09/24) Acute kidney failure, unspecified (06/09/24) Diarrhea, unspecified (06/09/24) Weakness (06/09/24) COVID-19 (06/09/24) Subjective Subjective Patient seen still refuses for lab work to be drawn. Approval has been obtained for patient to be transferred to a [facility] facility. Objective Data Objective Data Vital Signs: Vital Signs Temp Pulse Resp BP Pulse Ox O2 Del Method O2 Flow Rate 97.1 F L 89 20 H 108/57 L 92 Room Air 2 06/26/24 03:00 06/26/24 03:00 06/26/24 03:00 06/26/24 03:00 06/26/24 03:00 06/26/24 03:00 06/21/24 09:07 FiO2 55 06/15/24 16:19 Oxygen Flow Rate (L/min) 2 Oxygen Delivery Method Room Air Weight: 101.4 kg Body Mass Index (BMI) 34.9 Intake & Output: Intake and Output for Last 24 Hours 06/24/24 06/25/24 06/26/24 23:59 23:59 23:59 Intake Total 510 / 510 710 / 770 60 / 60 Output Total 1800 / 1800 620 / 1020 650 / 650 Balance -1290 / -1290 90 / -250 -590 / -590 Lab / Micro Data 06/23/24 05:29 06/23/24 05:29 Micro: Microbiology 06/15/24 10:18 Blood Culture (Wb) - Anticubital Right Blood Culture - Final No growth in 5 days. 06/15/24 10:20 Blood Culture (Wb) - Right Hand Blood Culture - Final No growth in 5 days. 06/15/24 12:45 Urine Catheter - Bernard Urine Culture - Final Klebsiella pneumoniae sp pneum Enterococcus faecalis 06/15/24 12:34 Nasal Secretion MRSA (PCR) - Final 06/15/24 10:10 Mucosa - Nasopharyngeal Respiratory Panel (PCR) - Final 06/15/24 12:45 Urine Catheter - Bernard Legionella Antigen - Final 06/15/24 12:45 Urine Catheter - Bernard Streptococcus pneumoniae Antigen (M - Final 06/09/24 19:45 Blood Culture (Wb) - Anticubital Left Blood Culture - Final No growth in 5 days. 06/09/24 20:08 Blood Culture (Wb) - Anticubital Left Blood Culture - Final No growth in 5 days. 06/09/24 20:05 Urine, Catheterized Urine Culture - Final Enterococcus faecalis 06/10/24 09:15 Stool Clostridioides difficile (PCR) - Final 06/09/24 19:48 Mucosa - Nose SARS-CoV-2, Influenza & RSV (PCR) - Final SARS-CoV-2 (COVID 19 PCR) Physical Exam Narrative GENERAL: cooperative HEENT: Atraumatic; normocephalic EYES; Anicteric, Normal Conjunctiva NECK; supple, normal thyroid, RESPIRATORY: Diminished to auscultation CARDIOVASCULAR: Regular S1 S2, GI: soft, normoactive bowel sounds, : No Renal angle tenderness; EXTREMITIES: No edema, no clubbing, MUSCULOSKELETAL: no muscle wasting NEURO: Awake; no lateralizing signs. SKIN: Bruises involving upper extremities PSYCH; Flat affect Assessment & Plan Assessment/Plan (1) COVID: (2) Generalized weakness: (3) Diarrhea: (4) Acute kidney injury: (5) Acute hyponatremia: (6) Dehydration: PLAN: Plan Patient is a 73-year-old gentleman with history of multiple myeloma who was diagnosed with COVID a week prior to his admission presented with progressive generalized weakness. Patient has had a protracted hospital stay complicated by sepsis secondary to pneumonia as well as VTE and subsequent complications with bleeding. 1. Sepsis ? Resolved this was secondary to healthcare acquired pneumonia treated appropriately ? 06/24/2024; sepsis resolved 2. Acute pulmonary embolism ? CTA did show RUL and RLL lobar and segmental branches PE. Patient was initially managed with heparin had to be discontinued given single and thrombocytopenia. Patient was offered IVC filter after discussion with his oncologist as well as primary care physician patient declined. Case was discussed with Dr. Roberts patient's oncologist on 06/22/2024 decision was made to start patient on therapeutic dose of Lovenox given its short half-life. Patient had already been started on apixaban this was discontinued following discussion with oncology ? 06/23/2024; Platelet count up to 62. Case was discussed with Dr. Hickman the day prior patient was transition from apixaban to enoxaparin discussed with patient he is okay with the change ? 06/24/2024; patient has tolerated Lovenox well so 3. Acute kidney injury ? Admitted to a monitored bed patient started on IV hydration with subsequent monitoring of electrolyte lying ? 06/23/2024; LUKE resolved 4. Hypovolemic hyponatremia ? Secondary to dehydration patient is on IV fluid with subsequent monitoring of electrolyte ? 06/22/2024. Hyponatremia resolved 5. COVID 19 infection ? Patient responded symptom management. 6. Multiple myeloma ? Patient is on Revlimid and follows with Dr. Roberts as outpatient. ? 06/22/2024 Case was discussed with Dr. Doherty decision was made to discontinue Revlimid 7. COPD ? Currently not in exacerbation aerosol treatment as needed 8. Class II obesity with BMI of 26 ? Complicating care weight loss advised 9. Physical deconditioning ? Requested for PT OT eval and social media marketing specialist to assist with discharge planning ? 06/24/2024; insurance precertification pending prior to patient being transferred to [facility] facility 10. Nonspecific nodule measuring 1 cm in the left adrenal gland -Plan is for patient to undergo subsequent outpatient evaluation with either non-contrast adrenal CT or chemical-shift adrenal MRI follow-up study. 11. Anemia ? Secondary to chronic disorder as well as patient underlying multiple myeloma monitoring H&H and transfuse if patient becomes symptomatic or hemoglobin falls below 7 12. Thrombocytopenia ? Thought to be a side effect of patient Revlimid and subsequent use of heparin both medications discontinued. Subsequently monitoring count patient platelet count as of 06/22/2024 was 46 ? 06/23/2024; platelet count up to 62 ? ; patient refusing lab draw Time spent in the patient's overall evaluation,decision-making process, review of diagnostic data, adjustment of management, discussion with other providers, nursing nursing and ancillary staff involved in patient's care documentation, 35 Minutes
--- NOTE | 2024-06-26 09:08 | CASEMGMT ---
Patient was approved to go to [facility]. SW notified physician. Shanna CASTELLANO
[2024-06-26] MEDS: Acyclovir 200 MG Capsule 400 MG PO (09:59)
[2024-06-26] MEDS: Potassium Chloride Oral Tablet 20 MEQ PO (09:59)
[2024-06-26] MEDS: Pantoprazole Sodium 40 MG Tablet PO (09:59)
[2024-06-26 10:03] VITALS: BP 107/62; PULSE 94; RESP 20; TEMP 36.8; O2SAT 95
[2024-06-26 10:10] VITALS: BP 107/62; PULSE 96
[2024-06-26] MEDS: Metoprolol(XL)Succ 25 MG Tablet PO (10:10)
[2024-06-26] MEDS: Budesonide/Formoterol Fumarate 10.2 GM Inhaler 2 PUFF INHALATION (10:11)
[2024-06-26] MEDS: Menthol/Lanolin/Calamine/Znox 113 GM Tube 1 APPLIC TOPICAL (10:11)
--- NOTE | 2024-06-26 10:26 | TREXTCAR_ITS ---
Diet Diet Order/Speech Therapy: 06/22/24 15:30 Carb [Diet: Carbohydrate Controlled] Food consistency:: Soft & Bite Sized Liquid Consistency:: Regular/Thin Type of Dietary Supplement:: 8oz Glucerna w/meals Diet Comments: DIRECT SUP, Liquids by tsp only, SpO2 in 90s for meals Routine Orders/Code Status Code Status: DNRCC-A DC O2, CPAP, BIPAP needs Home O2 Discharge instructions: No Wound(s) RIGHT ELBOW: Wound Type: Skin Tear buttocks and post thighs: Wound Type: excoriation left elbow: Wound Type: Skin Tear penis: Wound Type: Abrasion Therapies Physical Therapy: Eval and Treat Occupational Therapy: Eval and Treat Problem/Diagnosis (1) COVID: Status: Acute Code(s): U07.1 - COVID-19 (2) Generalized weakness: Status: Acute Code(s): R53.1 - Weakness (3) Diarrhea: Status: Acute Code(s): R19.7 - Diarrhea, unspecified (4) Acute kidney injury: Status: Acute Code(s): N17.9 - Acute kidney failure, unspecified (5) Acute hyponatremia: Status: Acute Code(s): E87.1 - Hypo-osmolality and hyponatremia (6) Dehydration: Status: Acute Code(s): E86.0 - Dehydration Plan Patient is a 73-year-old gentleman with history of multiple myeloma who was diagnosed with COVID a week prior to his admission presented with progressive generalized weakness. Patient has had a protracted hospital stay complicated by sepsis secondary to pneumonia as well as VTE and subsequent complications with bleeding. 1. Sepsis ? Resolved this was secondary to healthcare acquired pneumonia treated appropriately ? 06/24/2024; sepsis resolved 2. Acute pulmonary embolism ? CTA did show RUL and RLL lobar and segmental branches PE. Patient was initially managed with heparin had to be discontinued given single and thrombocytopenia. Patient was offered IVC filter after discussion with his oncologist as well as primary care physician patient declined. Case was discussed with Dr. Roberts patient's oncologist on 06/22/2024 decision was made to start patient on therapeutic dose of Lovenox given its short half-life. Patient had already been started on apixaban this was discontinued following discussion with oncology ? 06/23/2024; Platelet count up to 62. Case was discussed with Dr. Hickman the day prior patient was transition from apixaban to enoxaparin discussed with patient he is okay with the change ? 06/24/2024; patient has tolerated Lovenox well so 3. Acute kidney injury ? Admitted to a monitored bed patient started on IV hydration with subsequent monitoring of electrolyte lying ? 06/23/2024; LUKE resolved 4. Hypovolemic hyponatremia ? Secondary to dehydration patient is on IV fluid with subsequent monitoring of electrolyte ? 06/22/2024. Hyponatremia resolved 5. COVID 19 infection ? Patient responded symptom management. 6. Multiple myeloma ? Patient is on Revlimid and follows with Dr. Roberts as outpatient. ? 06/22/2024 Case was discussed with Dr. Doherty decision was made to discontinue Revlimid 7. COPD ? Currently not in exacerbation aerosol treatment as needed 8. Class II obesity with BMI of 26 ? Complicating care weight loss advised 9. Physical deconditioning ? Requested for PT OT eval and psychiatric social worker supervisor to assist with discharge planning ? 06/24/2024; insurance precertification pending [facility] 10. Nonspecific nodule measuring 1 cm in the left adrenal gland -Plan is for patient to undergo subsequent outpatient evaluation with either non-contrast adrenal CT or chemical-shift adrenal MRI follow-up study. 11. Anemia ? Secondary to chronic disorder as well as patient underlying multiple myeloma monitoring H&H and transfuse if patient becomes symptomatic or hemoglobin falls below 7 12. Thrombocytopenia ? Thought to be a side effect of patient Revlimid and subsequent use of heparin both medications discontinued. Subsequently monitoring count patient platelet count as of 06/22/2024 was 46 ? 06/23/2024; platelet count up to 62 ? ; patient refusing lab draw Time spent in the patient's overall evaluation,decision-making process, review of diagnostic data, adjustment of management, discussion with other providers, nursing nursing and ancillary staff involved in patient's care documentation, 35 Minutes Allergies/Procedures Done in Hospital Allergies No Known Allergies Allergy (Verified 06/09/24 19:18) Type of Care/Length of Stay Estimated LOS: Convalescent Care Less Than 30 days Type of Care Needed: Skilled Rehab Potential: Good Prognosis: Good Additional Orders/Day of Discharge Day of Discharge: 06/26/24 Dietary and Speech Recommendations Dietitian Recommendations/Changes: Will adjust to consistent carbohydrate diet, consistency/texture as per RESOURCE RECOVERY ENGINEER, d/t insulin resistance/A1C lab value. Will adjust 120ml ensure plus with meals to 120ml glucerna TID with meals. Current weight, suspect unintentional weight loss since admit. Reviewed and approved by Marlena Pena RDN, SATISH. Discharge Plan Admission Admit Date/Time: 06/09/24 21:00 Attending Provider: David Fraire Primary Care Provider: GARRY MONTIEL Consulting Providers: Cirilo Calderón; David Fraire; David Espino; Pradeep Brush; Manjit Esposito Discharge Orders/Prescriptions Prescriptions: New acetaminophen 325 mg Tablet 650 mg PO Q6H PRN PRN (Reason: Pain 1-10 Or Fever>100.7) Qty: 0 0RF potassium chloride 20 mEq Tablet,Er Particles/Crystals 20 meq PO BIDCM Qty: 0 0RF pantoprazole 40 mg Tablet,Delayed Release (Dr/Ec) 40 mg PO DAILY Qty: 0 0RF metoprolol succinate 25 mg Tablet Extended Release 24 Hr 25 mg PO DAILY Qty: 0 0RF enoxaparin 100 mg/mL Syringe 100 mg subcut Q12@0600,1800 Qty: 0 0RF Deep Sea Nasal 0.65 % Aerosol,[place] 2 spray NASAL BID PRN PRN (Reason: NASAL DRYNESS) Qty: 0 0RF potassium, sodium phosphates 280-160-250 mg Powder In Packet 1 packet PO TID Qty: 0 0RF Continued acyclovir 400 mg tablet 400 mg PO BID budesonide-formoterol [Symbicort] 160-4.5 mcg/actuation HFA aerosol inhaler 1 inh INHALATION Q12H ondansetron HCl 8 mg tablet 8 mg PO Q8H Discontinued dexamethasone 4 mg tablet 40 mg PO .COMPLEX Rx Instructions: 40 mg orally ON DAY OF CHEMO; lenalidomide 15 mg capsule 15 mg PO DAILY Referrals / Follow Up: GARRY MONTIEL [Other] GARRY MONTIEL [Other] Disposition Disposition (needs filled in before D/C Order can be placed): Nursing Home Facility
--- NOTE | 2024-06-26 10:30 | DS.PCM_ITS ---
Providers Date of Admission: 06/09/24 Date of Discharge: 06/26/24 Primary Care Physician: GARRY MONTIEL Consultations 06/14/24 20:14 Consult: Infectious Disease Routine Consulting Provider: David Espino Reason for Consult: Pneumonia after COVID. EMERGENT Consult: No Notified: Yes Date Notified: 06/14/24 Time Notified: 22:01 Method of Notification: Answering Service 06/15/24 16:54 Consult: Vascular Surgery Routine Consulting Provider: Pradeep Brush Reason for Consult: for IVC filter EMERGENT Consult: No Notified: Yes Date Notified: 06/15/24 Time Notified: 16:54 Method of Notification: Text Reason For Visit: COVID INFECTION WITH SEVERE DEHYDRATION & WEAKNESS Diagnosis Discharge Diagnosis (1) COVID: Status: Acute Code(s): U07.1 - COVID-19 (2) Generalized weakness: Status: Acute Code(s): R53.1 - Weakness (3) Diarrhea: Status: Acute Code(s): R19.7 - Diarrhea, unspecified (4) Acute kidney injury: Status: Acute Code(s): N17.9 - Acute kidney failure, unspecified (5) Acute hyponatremia: Status: Acute Code(s): E87.1 - Hypo-osmolality and hyponatremia (6) Dehydration: Status: Acute Code(s): E86.0 - Dehydration Plan Patient is a 73-year-old gentleman with history of multiple myeloma who was diagnosed with COVID a week prior to his admission presented with progressive generalized weakness. Patient has had a protracted hospital stay complicated by sepsis secondary to pneumonia as well as VTE and subsequent complications with bleeding. 1. Sepsis ? Resolved this was secondary to healthcare acquired pneumonia treated appropriately ? 06/24/2024; sepsis resolved 2. Acute pulmonary embolism ? CTA did show RUL and RLL lobar and segmental branches PE. Patient was initially managed with heparin had to be discontinued given single and thrombocytopenia. Patient was offered IVC filter after discussion with his oncologist as well as primary care physician patient declined. Case was discussed with Dr. Roberts patient's oncologist on 06/22/2024 decision was made to start patient on therapeutic dose of Lovenox given its short half-life. Patient had already been started on apixaban this was discontinued following discussion with oncology ? 06/23/2024; Platelet count up to 62. Case was discussed with Dr. Hickman the day prior patient was transition from apixaban to enoxaparin discussed with patient he is okay with the change ? 06/24/2024; patient has tolerated Lovenox well so 3. Acute kidney injury ? Admitted to a monitored bed patient started on IV hydration with subsequent monitoring of electrolyte lying ? 06/23/2024; LUKE resolved 4. Hypovolemic hyponatremia ? Secondary to dehydration patient is on IV fluid with subsequent monitoring of electrolyte ? 06/22/2024. Hyponatremia resolved 5. COVID 19 infection ? Patient responded symptom management. 6. Multiple myeloma ? Patient is on Revlimid and follows with Dr. Roberts as outpatient. ? 06/22/2024 Case was discussed with Dr. Doherty decision was made to discontinue Revlimid 7. COPD ? Currently not in exacerbation aerosol treatment as needed 8. Class II obesity with BMI of 26 ? Complicating care weight loss advised 9. Physical deconditioning ? Requested for PT OT eval and socially responsible investment adviser to assist with discharge planning ? 06/24/2024; insurance precertification pending prior to patient being transferred to [facility] facility 10. Nonspecific nodule measuring 1 cm in the left adrenal gland -Plan is for patient to undergo subsequent outpatient evaluation with either non-contrast adrenal CT or chemical-shift adrenal MRI follow-up study. 11. Anemia ? Secondary to chronic disorder as well as patient underlying multiple myeloma monitoring H&H and transfuse if patient becomes symptomatic or hemoglobin falls below 7 12. Thrombocytopenia ? Thought to be a side effect of patient Revlimid and subsequent use of heparin both medications discontinued. Subsequently monitoring count patient platelet count as of 06/22/2024 was 46 ? 06/23/2024; platelet count up to 62 ? ; patient refusing lab draw Time spent in the patient's overall evaluation,decision-making process, review of diagnostic data, adjustment of management, discussion with other providers, nursing nursing and ancillary staff involved in patient's care documentation, 35 Minutes Medications at Discharge Home Medications acyclovir 400 mg tablet 400 mg PO BID 03/26/23 budesonide-formoterol HFA 160 mcg-4.5 mcg/actuation aerosol inhaler (Symbicort) 1 inh inhalation Q12H 03/26/23 ondansetron HCl 8 mg tablet 8 mg PO Q8H 03/26/23 acetaminophen 325 mg tablet 650 mg (2 x 325 mg) PO Q6H PRN PRN Pain 1-10 Or Fever>100.7 #0 tabs 06/26/24 enoxaparin 100 mg/mL subcutaneous syringe 100 mg subcut Q12@0600,1800 #0 mL 06/26/24 metoprolol succinate 25 mg tablet,extended release 24 hr 25 mg PO DAILY #0 tabs 06/26/24 pantoprazole 40 mg tablet,delayed release 40 mg PO DAILY #0 tabs 06/26/24 potassium chloride 20 mEq tablet,extended release(part/cryst) 20 meq PO BIDCM #0 tabs 06/26/24 potassium, sodium phosphates 280 mg-160 mg-250 mg oral powder packet 1 packet PO TID #0 ea 06/26/24 sodium chloride 0.65 % nasal spray aerosol (Deep Sea Nasal) 2 spray NASAL BID PRN PRN NASAL DRYNESS #0 mL 06/26/24 Weight / BMI Weight Weight: 101.4 kg Body Mass Index (BMI) 34.9 ABG / Lab / Microbiology Data 06/23/24 05:29 06/23/24 05:29 Microbiology: Microbiology 06/15/24 10:18 Blood Culture (Wb) - Anticubital Right Blood Culture - Final No growth in 5 days. 06/15/24 10:20 Blood Culture (Wb) - Right Hand Blood Culture - Final No growth in 5 days. 06/15/24 12:45 Urine Catheter - Bernard Urine Culture - Final Klebsiella pneumoniae sp pneum Enterococcus faecalis 06/15/24 12:34 Nasal Secretion MRSA (PCR) - Final 06/15/24 10:10 Mucosa - Nasopharyngeal Respiratory Panel (PCR) - Final 06/15/24 12:45 Urine Catheter - Bernard Legionella Antigen - Final 06/15/24 12:45 Urine Catheter - Bernard Streptococcus pneumoniae Antigen (M - Final 06/09/24 19:45 Blood Culture (Wb) - Anticubital Left Blood Culture - Final No growth in 5 days. 06/09/24 20:08 Blood Culture (Wb) - Anticubital Left Blood Culture - Final No growth in 5 days. 06/09/24 20:05 Urine, Catheterized Urine Culture - Final Enterococcus faecalis 06/10/24 09:15 Stool Clostridioides difficile (PCR) - Final 06/09/24 19:48 Mucosa - Nose SARS-CoV-2, Influenza & RSV (PCR) - Final SARS-CoV-2 (COVID 19 PCR) D/C Instructions Discharge Diet: No restrictions Discharge Activity: Return to Normal Activity Call your doctor if you observe: Fever of 101 or Higher, Shortness of breath, Fainting spells and Chest pain DC O2, CPAP, BIPAP Needs PSN CPAP & BiPAP: BiPAP & CPAP Settings per PSN Mode AIRVO 06/15/24 19:10 Bipap Delivery Device Nasal Mask 06/15/24 16:19 Fraction of Inspired Oxygen ( 55 06/15/24 16:19 FIO2) Total Flow Rate 40 06/15/24 16:19 Home O2 Discharge instructions: No Meaningful Use Info Meaningful Use Meaningful Use Diagnoses (Choose all that apply): VTE Ischemic Stroke Statin Dosing Therapy Reference: STATIN DOSE THERAPY REFERENCE: * Patients > 75 years receive moderate or high dose statin therapy. * Patients 75 years or YOUNGER should receive HIGH intensity statin dose unless contraindicated. You will be required to document reason for non-treatment if statin daily dose does not meet guidelines. HIGH DOSE STATIN THERAPY DAILY Atorvastatin > than or = to 40 mg Rosuvastatin > than or = to 20 mg Amlodipine + Atorvastatin > than or = to 2.5/40 mg Ezetimibe + Simvastatin 10/80 mg Simvastatin 80mg VTE Anticoag overlap given w/in hospital stay or rx'd at dc?: No Pt receive overlap for 5 days?: No Reason overlap not ordered, prescribed, or given for 5 days: Treatment Not Indicated Discharge Plan Admission Admit Date/Time: 06/09/24 21:00 Attending Provider: David Fraire Primary Care Provider: GARRY MONTIEL Consulting Providers: Cirilo Calderón; David Fraire; David Espino; Pradeep Brush; Manjit Esposito Discharge Orders/Prescriptions Prescriptions: New acetaminophen 325 mg Tablet 650 mg PO Q6H PRN PRN (Reason: Pain 1-10 Or Fever>100.7) Qty: 0 0RF potassium chloride 20 mEq Tablet,Er Particles/Crystals 20 meq PO BIDCM Qty: 0 0RF pantoprazole 40 mg Tablet,Delayed Release (Dr/Ec) 40 mg PO DAILY Qty: 0 0RF metoprolol succinate 25 mg Tablet Extended Release 24 Hr 25 mg PO DAILY Qty: 0 0RF enoxaparin 100 mg/mL Syringe 100 mg subcut Q12@0600,1800 Qty: 0 0RF Deep Sea Nasal 0.65 % Aerosol,[place] 2 spray NASAL BID PRN PRN (Reason: NASAL DRYNESS) Qty: 0 0RF potassium, sodium phosphates 280-160-250 mg Powder In Packet 1 packet PO TID Qty: 0 0RF Continued acyclovir 400 mg tablet 400 mg PO BID budesonide-formoterol [Symbicort] 160-4.5 mcg/actuation HFA aerosol inhaler 1 inh INHALATION Q12H ondansetron HCl 8 mg tablet 8 mg PO Q8H Discontinued dexamethasone 4 mg tablet 40 mg PO .COMPLEX Rx Instructions: 40 mg orally ON DAY OF CHEMO; lenalidomide 15 mg capsule 15 mg PO DAILY Referrals / Follow Up: GARRY MONTIEL [Other] GARRY MONTIEL [Other] Disposition Disposition (needs filled in before D/C Order can be placed): [facility] Facility Charges/Coding Visit Charges Inpatient E&M: 85970 Disch Hosp >30min
--- NOTE | 2024-06-26 11:03 | CASEMGMT ---
Patient is ready for discharge to [facility] ([facility]). SW completed a 7000 in HENS system. Physicians will transport patient via cot. Plan: d/c to [facility] under skilled level of care on a convalescent stay. Physicians will transport patient via cot. Shanna CASTELLANO
--- NOTE | 2024-06-26 11:11 | CASEMGMT ---
Discharge orders, signed med list, and transport time sent to [facility]. Physicians will transport patient by cot at noon. Nursing, SW, patient, and his son (Rickie) updated. June Barbosa DC Planning Asst.
--- NOTE | 2024-06-26 11:38 | PHA.DC.MR.R ---
Pharmacy [place] Med Reconciliation Pharmacy Service has performed discharge medication reconciliation for this patient. The patient's discharge medication list was reviewed for discrepancies and discrepancies were resolved. Medications at Discharge Home Medications acyclovir 400 mg tablet 400 mg PO BID 03/26/23 budesonide-formoterol HFA 160 mcg-4.5 mcg/actuation aerosol inhaler (Symbicort) 1 inh inhalation Q12H 03/26/23 ondansetron HCl 8 mg tablet 8 mg PO Q8H 03/26/23 acetaminophen 325 mg tablet 650 mg (2 x 325 mg) PO Q6H PRN PRN Pain 1-10 Or Fever>100.7 #0 tabs 06/26/24 enoxaparin 100 mg/mL subcutaneous syringe 100 mg subcut Q12@0600,1800 #0 mL 06/26/24 metoprolol succinate 25 mg tablet,extended release 24 hr 25 mg PO DAILY #0 tabs 06/26/24 pantoprazole 40 mg tablet,delayed release 40 mg PO DAILY #0 tabs 06/26/24 potassium chloride 20 mEq tablet,extended release(part/cryst) 20 meq PO BIDCM #0 tabs 06/26/24 potassium, sodium phosphates 280 mg-160 mg-250 mg oral powder packet 1 packet PO TID #0 ea 06/26/24 sodium chloride 0.65 % nasal spray aerosol (Deep Sea Nasal) 2 spray NASAL BID PRN PRN NASAL DRYNESS #0 mL 06/26/24
[2024-06-26 11:42] VITALS: BP 101/52; PULSE 94; RESP 20; O2SAT 92
--- NOTE | 2024-06-26 12:28 | NURSING ---
This RN called report to [facility] at 1224, MARGE Bhakta at this time.
== END 2024-06-26 12:45 | disposition skilled nursing facility (03) | DRG 177 ==
LOC: ED 20:35 → ICU 21:29 → PCU 06-10 18:07
PROVIDERS: Internal Medicine; Internal Medicine Infectious Disease; Physician Assistant; Admitting Provider Hospitalist; Emergency Provider Emergency Medicine; Visit Provider Internal Medicine
DX: U07.1 COVID-19 (principal); J96.01 Acute respiratory failure with hypoxia; I26.99 Other pulmonary embolism without acute cor pulmonale; A41.9 Sepsis, unspecified organism; R65.20 Severe sepsis without septic shock; D61.810 Antineoplastic chemotherapy induced pancytopenia; J18.9 Pneumonia, unspecified organism; C90.00 Multiple myeloma not having achieved remission; J44.0 Chronic obstructive pulmonary disease with (acute) lower respiratory infection; N17.9 Acute kidney failure, unspecified; E87.20 Acidosis, unspecified; E87.1 Hypo-osmolality and hyponatremia; D62 Acute posthemorrhagic anemia; D84.9 Immunodeficiency, unspecified; M06.9 Rheumatoid arthritis, unspecified; D63.0 Anemia in neoplastic disease; Z68.35 Body mass index [BMI] 35.0-35.9, adult; E27.8 Other specified disorders of adrenal gland; E86.0 Dehydration; E87.6 Hypokalemia; E87.8 Other disorders of electrolyte and fluid balance, not elsewhere classified; R19.7 Diarrhea, unspecified; D69.6 Thrombocytopenia, unspecified; Z87.891 Personal history of nicotine dependence; Z79.52 Long term (current) use of systemic steroids; Z79.51 Long term (current) use of inhaled steroids; E66.812 Obesity, class 2; Z98.0 Intestinal bypass and anastomosis status; Y95 Nosocomial condition; Z79.01 Long term (current) use of anticoagulants; Z79.899 Other long term (current) drug therapy
CPT/HCPCS: 36415; 51702; 71045; 71046; 71275; 74176; 74230; 80048; 80053; 80076; 81001; 82232; 82550; 82728; 83010; 83036; 83540; 83550; 83605; 83615; 83735; 83880; 84100; 84145; 85014; 85018; 85025; 85027; 85045; 85379; 85384; 85610; 85730; 86146; 86147; 86880; 87040; 87077; 87086; 87088; 87186; 87449; 87493; 87631; 87633; 87641; 92526; 92610; 92611; 93005; 93306; 93970; 94002; 94640; 94660; 94762; 97110; 97163; 97165; 97530; 97535; 97803; 99285; Q9967; A4216; J1940